=== PATIENT | male | born 1970 | race Caucasian/White ===

== ENCOUNTER → 2019-06-23 06:15 | Outpatient (CLI) | payer BC, SELFPAY ==
--- NOTE | 2019-06-23 06:20 | CA_ITS ---
PROCEDURE: 2-D M-mode and color Doppler study INDICATIONS FOR THE TEST: Chest pain+ COPD Heart Murmur Tobacco Smoking+ Palpitations Fatigue Syncope Edema Hypertension+Diabetes Mellitus Rheumatic Fever SOB+[place] Obesity Hyperlipidemia Family History HD Additional History CAD, GERD PATIENT INFORMATION HEIGHT: 72 WEIGHT:207 GENDER: Male B/P:133/96 2-D/M-MODE INTERPRETATION: 2-D MEASUREMENTS OBSERVED VALUES IN CMS Right Ventricular Dimension (RVDd) 1.9 Interventricular Septum (Thickness)(IVsd) 1.3 Left Ventricular Internal Dimensions(LVIDd) 5.0 Left Ventricular Posterior Wall (Thickness)(LVPWd) 1.4 Aortic Root 3.8 Aortic Cusp Separation 2.2 Left Atrial Dimensions (LAD) 4.2 2D 1. Left atrium is mildly enlarged, left ventricle is normal size, mild concentric left ventricular hypertrophy, visually estimated ejection fraction of 55% with no regional wall motion abnormality. 2. The right atrium and right ventricle are normal size and contractility. 3. The aortic valve is minimally thickened. 4. The mitral and tricuspid valvular grossly normal. 5. The pulmonic valve is poorly visualized. 6. No significant pericardial effusion noted DOPPLER INTERROGATION: Doppler interrogation of the aortic, mitral and tricuspid valvular presence of mild mitral and tricuspid regurgitation, tricuspid regurgitation jet velocity is inadequate for calculation of the right ventricular systolic pressure, diastolic parameters are inconclusive. CONCLUSION: 1. Mildly enlarged left atrium, normal left ventricular size, mild concentric left ventricular hypertrophy, visually estimated ejection fraction 55% with no regional wall motion abnormality, diastolic parameters are inconclusive. 2. Mild mitral and tricuspid regurgitation. 3. No significant pericardial effusion noted.
--- NOTE | 2019-06-23 06:22 | NM_ITS ---
NM addie perf SPECT rest str History:C.P., SOB Procedure: Patient received a 0.4 mg of intravenous Lexiscan, resting heart rate 59 bpm, resting blood pressure 148/98, with Lexiscan maximum heart rate achieve was 88 bpm which is less than 85 % of the maximum predicted heart rate and blood pressure was 136/95. WIth Lexiscan patient denied any complaint of chest pain. Electrocardiogram: Resting electrocardiogram showed sinus rhythm, with Lexiscan there is less than 1.5mm ST segment depression noted from the baseline EKG. The EKG portion of the Lexiscan Myoview is nondiagnostic. Cardias Stress and Resting SPECT images: Cardias Stress and Resting SPECT images were obtained using technetium 99m Myoview 32.5 mCi stress and 10.53 mCi at rest. Gated SPECT further analysis of segmental wall motion and calculation of ejection fraction also done. Cardiac stress and resting SPECT show uniform myocardial activity without segmental perfusion abnormality, the computer derived ejection fraction is 61% with no regional wall motion abnormality, right ventricle is normal size and contractility. Conclusion: 1. The EKG portion of the Lexiscan Myoview is nondiagnostic. 2. No scintigraphic evidence of reversible ischemia seen, computer derived ejection fraction is 61 % with no regional wall motion abnormality, right ventricle is normal size and contractility. 3. Normal Lexiscan Myoview study.
--- NOTE | 2019-06-23 06:22 | XR_ITS ---
XR chest 2V HISTORY: Shortness of breath, chest pain, smoker ITS.REASON: s ORDERING PHYSICIAN: Elena Prince APRN PATIENT AGE: 49 years COMPARISON: None FINDINGS: The cardiomediastinal silhouette and pulmonary vascularity are within normal limits. Slight increased density is present in the right suprahilar region. Is nonspecific and could be due to summation artifact from overlapping vessel and bronchus. Suggest follow-up to confirm stability. The remaining lungs are clear. Mild degenerative change thoracic spine. IMPRESSION: No acute finding. Asymmetric density right hilar region. Follow-up radiograph recommended to confirm stability in this patient with smoking history
--- NOTE | 2019-06-23 07:15 | HMH.ITSHM ---
Current Home Medications as stated by this patient Antony Narayanan or client representative. []CARVEDILOL OMEPRAZOLE LISINOPRIL
== END ==
PROVIDERS: Visit Provider Urology
DX: R07.89 Other chest pain (principal); R06.02 Shortness of breath; I10 Essential (primary) hypertension; F17.200 Nicotine dependence, unspecified, uncomplicated
CPT/HCPCS: 71046; 78452; 93017; 93306; A9502; J2785

== ENCOUNTER 2022-05-21 11:34 | Emergency (ER) | payer MEDICAID, SELFPAY ==
[2022-05-21] VITALS (12 sets, daily range): BP systolic 132–150; BP diastolic 90–114; PULSE 60–80; RESP 15–20; TEMP 36.8; O2SAT 96–99; BMI 27.8
--- NOTE | 2022-05-21 11:34 | ECG_ITS ---
APPROVED REPORT Exam: Resting ECG HR:75 bpm ECG Measurements Heart Rate 75 AXES ID 159 P 13 QRSd 80 QRS 8 QT 347 T 43 QTc 376 Conclusion SINUS RHYTHM POSSIBLE RIGHT VENTRICULAR CONDUCTION DELAY [RSR (QR) IN V1/V2] BORDERLINE ECG UNCONFIRMED REPORT Electronically signed by : Nicolas Davila MD 05/23/2022 17:48:04
--- NOTE | 2022-05-21 11:41 | HMH.EDCP ---
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 Return to the emergency department immediately if you worsen in any way. You may take [id number] Tylenol or ibuprofen for your pain. Referrals: Provider,MD Emmett [Primary Care Provider] - Abiel Cm MD [Staff Physician] - - Critical Care Critical Care Time: No Attestation: On , the high probability of a clinically significant, sudden or life threatening deterioration of the following system(s) required my full and direct attention, intervention and personal management. The time I documented below is in addition to time spent performing reported procedures but includes the following listed in this critical care notation. Medical Decision Making - Sid Inquiry Pt receiving controlled substance: No Vital Signs: 05/21/22 11:34 05/21/22 12:00 05/21/22 12:30 Temperature 98.2 F Temperature Source Oral Pulse Rate 80 70 Pulse Rate [Right Radial] 79 Respiratory Rate 16 20 16 Blood Pressure 134/100 H 134/93 H Blood Pressure [Right Arm] 148/113 H Blood Pressure Mean 111 107 Blood Pressure Mean [Right Arm] 124 Blood Pressure Source [Right Arm] Automatic Cuff Blood Pressure Position [Right Arm] Sitting 02 Sat by Pulse Oximetry 99 98 97 Oxygen Delivery Method Room Air 05/21/22 13:00 05/21/22 13:30 05/21/22 14:00 Temperature Temperature Source Pulse Rate 68 69 67 Pulse Rate [Right Radial] Respiratory Rate 17 15 16 Blood Pressure 135/100 H 138/98 H 141/100 H Blood Pressure [Right Arm] Blood Pressure Mean 109 107 111 Blood Pressure Mean [Right Arm] Blood Pressure Source [Right Arm] Blood Pressure Position [Right Arm] 02 Sat by Pulse Oximetry 98 96 98 Oxygen Delivery Method 05/21/22 14:30 Temperature Temperature Source Pulse Rate 70 Pulse Rate [Right Radial] Respiratory Rate 15 Blood Pressure 135/90 Blood Pressure [Right Arm] Blood Pressure Mean 105 Blood Pressure Mean [Right Arm] Blood Pressure Source [Right Arm] Blood Pressure Position [Right Arm] 02 Sat by Pulse Oximetry 97 Oxygen Delivery Method - Lab Data Lab results reviewed: Yes: I reviewed the patient's lab results. Lab Results 05/21/22 11:41: WBC 5.4, RBC 5.05, Hgb 15.8, Hct 44.7, MCV 88.6, MCH 31.2, MCHC 35.2, RDW 13.7, Plt Count 278, MPV 7.1 L, Neut % (Auto) 68.5, Lymph % (Auto) 22.6, [place] % (Auto) 6.6, Eos % (Auto) 2.0, Baso % (Auto) 0.4, Neut # (Auto) 3.7, Lymph # (Auto) 1.2, [place] # (Auto) 0.4, Eos # (Auto) 0.1, Baso # (Auto) 0.0 05/21/22 11:41: PT 10.2, INR 0.90, APTT 26.5 05/21/22 11:41: Sodium 135 L, Potassium 3.5, Chloride 99, Carbon Dioxide 25, Anion Gap 14.5, BUN 14, Creatinine 0.80, Estimated GFR 102, Est GFR ( Amer) 124, Glucose 139 H, Calcium 9.3, Total Bilirubin 0.6, AST 40, ALT 47, Alkaline Phosphatase 104, Troponin I < 0.01, Total Protein 7.3, Albumin 4.6, Globulin 2.7, Albumin/Globulin Ratio 1.7 05/21/22 14:49: Troponin I < 0.01 Result diagrams: 05/21/22 11:41 05/21/22 11:41 Orders (Tests/Meds): ED MEDICATIONS Discontinued Medications Generic Name Dose Route Start Last Admin Trade Name Freq PRN Reason Stop Dose Admin Aspirin 324 mg 05/21/22 11:42 05/21/22 12:44 Aspirin 81mg Chewable Tablet PO 05/21/22 11:43 324 mg ONCE ONE Administration - ECG Data Tracing #1 I reviewed this ECG and interpreted as documented below: The patient is EKG was performed at 1135. It shows a normal sinus rhythm with a ventricular rate of 75 bpm. There is no evidence of acute ischemia. The intervals are normal. Normal Sinus Rhythm: Yes - TO Score for Non-Stemi Age of Patient: 50-59 years old Heart Rate: 70-89 bpm Systolic Blood Pressure: 140-159 mmHg Serum Creatinine: 0.80-1.19 mg/dl CHF K
--- NOTE | 2022-05-21 11:42 | XR_ITS ---
FINAL REPORT CLINICAL HISTORY: cp, pt states that he has been experiencing chest pain and a shooting pain down his left arm since yesterday. COMPARISON: 04/23/2019 FINDINGS: The heart size is normal. The mediastinum is normal. There is no focal infiltrate or edema. There are no pleural effusions. There is no pneumothorax. There is no osseous abnormality. IMPRESSION: No acute cardiopulmonary process Reviewed, Interpreted and Dictated by Salvador Little III, MD Transcribed by Alexey Whelan Authenticated and [facility]
[2022-05-21 11:57] LABS: Basophils % 0.4 % (0.1-2.0); Eosinophils # 0.1 K/mm3 (0.0-0.4); Hematocrit 44.7 % (42.0-52.0); Hemoglobin 15.8 g/dL (14.1-18.0); Lymphocytes # 1.2 K/mm3 (0.7-4.5); Lymphocytes % 22.6 % (10-50); Mean Corpuscular HGB Conc 35.2 g/dL (31.8-35.4); Mean Corpuscular Hemoglobin 31.2 pg (27.0-31.2); Mean Corpuscular Volume 88.6 fl (80-94); Mean Platelet Volume 7.1 fl (7.4-10.4); Monocytes # 0.4 K/mm3 (0.1-1.0); Monocytes % 6.6 % (1.7-9.3); Neutrophils # 3.7 K/mm3 (1.8-7.8); Neutrophils % 68.5 % (37.0-80.0); Platelet Count 278 K/mm3 (142-424); Red Blood Count 5.05 M/mm3 (4.60-6.20); Red Cell Distribution Width 13.7 % (11.5-17.5); White Blood Count 5.4 K/mm3 (4.8-10.8)
[2022-05-21 11:58] LABS: Chloride 99 mmol/L (98-107); Sodium 135 mmol/L (136-145)
[2022-05-21 11:59] LABS: Potassium 3.5 mmoL/L (3.5-5.1)
[2022-05-21 12:01] LABS: Alanine Aminotransferase 47 U/L (12-78); Albumin Level 4.6 g/dl (3.5-5.0); Albumin/Globulin Ratio 1.7 (1.1-1.8); Alkaline Phosphatase 104 U/L (38-126); Anion Gap 14.5 mEq/L (5-15); Aspartate Amino Transferase 40 U/L (17-59); Bilirubin,Total 0.6 mg/dl (0.2-1.3); Blood Urea Nitrogen 14 mg/dl (9-20); Carbon Dioxide 25 mmol/L (22.0-30.0); Estimated Glomerular Filt Rate 102 ml/min (>60); GFR (African American) 124 ML/MIN (>60); Globulin 2.7 g/dL (1.3-3.2); Total Protein,Serum 7.3 g/dl (6.3-8.2)
[2022-05-21 12:02] LABS: Calcium 9.3 mg/dl (8.4-10.2); Glucose 139 mg/dl (74-100)
[2022-05-21 12:04] LABS: Activated Partial Thrombo Time 26.5 seconds (22.8-30.6); Prothrombin Time 10.2 seconds (10.1-12.5)
[2022-05-21 12:25] LABS: Troponin I < 0.01 ng/ml (0.00-0.034)
--- NOTE | 2022-05-21 12:54 | PC.NURSE ---
Rounded on pt at this time. Updated on POC. No other needs.
--- NOTE | 2022-05-21 13:27 | PC.NURSE ---
Updated pt on POC and that MD would be reviewing chart and be in to speak with him. Pt provided with drink at this time. No other needs
[2022-05-21 16:29] LABS: Troponin I < 0.01 ng/ml (0.00-0.034)
--- NOTE | 2022-05-21 16:34 | PC.NURSE ---
UPDATING PT AT THIS TIME
== END 2022-05-21 16:45 | disposition home or self-care (01) ==
PROVIDERS: Emergency Provider Emergency Medicine
DX: R07.89 Other chest pain (principal); I25.10 Atherosclerotic heart disease of native coronary artery without angina pectoris; K21.9 Gastro-esophageal reflux disease without esophagitis; I10 Essential (primary) hypertension; Z72.0 Tobacco use
CPT/HCPCS: 36415; 71045; 80053; 84484; 85025; 85610; 85730; 93005; 99283

== ENCOUNTER → 2022-05-28 09:43 | Outpatient (CLI) | payer MEDICAID, SELFPAY ==
--- NOTE | 2022-05-28 09:50 | CT_ITS ---
FINAL REPORT TECHNIQUE: Thin section axial CT images were obtained from the lung apices to the upper abdomen. IV contrast was administered. MIP 3-D reformats were obtained. This study was performed with techniques to keep radiation doses as low as reasonably achievable (ALARA). Individualized dose reduction techniques using automated exposure control or adjustment of mA and/or kV according to the patient's size were employed. CLINICAL HISTORY: cp..70ml of iso 370 saline flush FINDINGS: The mediastinal vasculature is well opacified. The heart size is normal. There is no adenopathy. There is no filling defect to suggest PE. There is no aortic dissection. There is no pericardial effusion. There is chronic scarring in the lung bases. There are [id number] changes intra lobular emphysema. There is no suspicious infiltrate or nodule. No pleural effusion. Limited images of the upper abdomen demonstrate a moderate hiatal hernia. IMPRESSION: No pulmonary embolism or aortic dissection. Reviewed, Interpreted and Dictated by Duran Larios MD Transcribed by Alexey Whelan Authenticated and [facility]
== END ==
PROVIDERS: PCP Family Medicine; Visit Provider Nurse Practitioner Family
DX: R06.02 Shortness of breath (principal); R07.9 Chest pain, unspecified; I11.9 Hypertensive heart disease without heart failure; E78.5 Hyperlipidemia, unspecified; K21.9 Gastro-esophageal reflux disease without esophagitis; F17.200 Nicotine dependence, unspecified, uncomplicated
CPT/HCPCS: 71275; Q9966; Q9967

== ENCOUNTER → 2022-06-03 06:38 | Outpatient (CLI) | payer MEDICAID, SELFPAY ==
--- NOTE | 2022-06-03 06:39 | CA_ITS ---
APPROVED REPORT EXAM: Comprehensive 2D, Doppler, and color-flow Echocardiogram Investment Counselor: Julieta Reyes, SELMA, RVS Ht: 6 ft 0 in Wt: 207lbs BSA: 2.16 BP: 135/99 mmHg Indications: SOB, SMOKER, CP,HTN, HLD,CAD,GERD Echo Enhancing Agent Comments: Poor acoustics due to lung impedence 2D Dimensions IVSd 1.05 cm LVEF (Visual) 77.10 % PWd 1.00 cm LA Volume 53.10 mL LVDd 4.91 cm LA Volume Index 24.60 mL/m2 (M/F) 16-34 LVDs 2.66 cm Aortic Root 3.01 cm Left Atrium 3.28 cm LVOT 2.00 cm (M/F) 1.5-2.5 M-Mode Dimensions LA Diam 4.47 cm (1.9-4.0) Ao Diam 3.45 cm (2.0-3.7) EPSs 0.34 cm TAPSE 1.28 (<1.7) LV Diastology E Decel Time 307.00 (160-240 msec) E/A Ratio 1.32 MED E' 7.10 (< 7 cm/sec) MED A' 8.60 cm/s E'/MED E' Ratio 9.75 (>14) LAT E' 7.90 (<10 cm/sec) LAT A' 9.60 cm/s E/LAT E' Ratio 8.76 (>14) Aortic Valve LVOT Max 99.00 (70-110 cm/s) LVOT VTI 21.78 cm AoV Peak Prateek. 116.00 (50-130 cm/s) AO Peak GR. 5.40 mmHg AO Mean GR. 2.70 (<5 mmHg) AO VTI 22.07 (18-25 cm) ROCCO (VTI) 3.10 (2.5-4.5 cm2) Mitral Valve MV A Velocity 52.00 (40-130 cm/s) E/A Ratio 1.32 MV Decel. Time 307.00 (160-240 ms) Pulmonary Valve PV Peak Velocity 65.00 (50-150 cm/s) Tricuspid Valve TR P. Velocity 250.00 cm/s RAP Estimate 10.00 mmHg RVSP 35.00 mmHg Left Ventricle Left atrium is mildly enlarged, left ventricle normal size mild concentric left ventricular hypertrophy, estimated ejection fraction 50% with no regional wall motion abnormality, diastolic parameters are inconclusive. Right Ventricle Right atrium and right ventricle are mildly enlarged with normal contractility. Aortic Valve Aortic valve is minimally thickened and fibrosed, there is no aortic stenosis or aortic insufficiency. Mitral Valve Mitral valve grossly normal, there is mild mitral regurgitation. Tricuspid Valve Tricuspid grossly normal, there is mild tricuspid regurgitation, tricuspid regurgitation jet velocity is inadequate for calculation of the right ventricular systolic pressure. Pulmonic Valve Pulmonic valve is poorly visualized. Great Vessels Aortic root is normal size. Inferior vena cava is poorly visualized. Pericardium No significant pericardial effusion noted. Conclusion 1. Biatrial enlargement, normal left ventricular size mild concentric left ventricular hypertrophy, estimated ejection fraction 50% with no regional wall motion abnormality, diastolic parameters are inconclusive. 2. Mildly enlarged right ventricle with normal contractility. 3. Mild mitral and tricuspid regurgitation. 4. No significant pericardial effusion noted. 5. Inferior vena cava is poorly visualized. Electronically signed by : Casper Mantilla MD 06/03/2022 16:07:44
--- NOTE | 2022-06-03 06:46 | NM_ITS ---
APPROVED REPORT Exam: Nuclear Stress Test Indication: Chest pain, SOB, HTN, CAD, Hx of CA, Tobacco use, Family history Patient Location: Outpatient Stress Tech: Margot Prasad PR Tech:Marlene Johansen, ARRT, RT (R)(N) Ht: 6 ft 0 in Wt: 205 lbs HR: 69 bpm BP: 116/86 mmHg BSA: 2.15 m2 TID: 1.10 History: Chest pain, SOB, HTN, CAD, Hx of CA, Tobacco use, Family history Procedure: Patient received a 0.4 mg of intravenous Lexiscan, resting heart rate 69 bpm, resting blood pressure 116/86 mmHg, with Lexiscan maximum heart rate achived was 103 bpm which is Less than 85 % of the maximum predicted heart rate and blood pressure was 126/82 mmHg. With Lexiscan, patient denied any complaint of chest pain. Electrocardiogram Resting electrocardiogram shows sinus rhythm, with Lexiscan there is less than 1.[address] segment depression noted from the baseline EKG. The EKG portion of the Lexiscan is nondiagnostic. Cardiac Stress and Resting SPECT Images: Cardiac Stress and Resting SPECT images were obtained using technetium 99m Myoview 32.4 mCi stress and 10.29 mCi at rest. Gated SPECT for analysis of segmental wall motion and calculation of the ejection fraction also done. Cardiac stress and rest SPECT images show uniform myocardial activity without segmental perfusion abnormality, computer derived ejection fraction is 55% with no regional wall motion abnormality, right ventricle is normal size and contractility. Conclusion: 1. The EKG portion of the Lexiscan is nondiagnostic. 2. No scintigraphic evidence of reversible ischemia seen, compared right ejection fraction is 55% with no regional wall motion abnormality, right ventricle is normal size and contractility. 3. Normal Lexiscan Myoview study. Electronically signed by : Casper Mantilla MD 06/03/2022 18:26:36
--- NOTE | 2022-06-03 08:13 | HMH.ITSHM ---
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 []TIZANIDINE OMEPRAZOLE NAPROXEN LISINOPRIL HYDORCODONE GABAPENTIN CARVEDILOL ASA AMLODIPINE
--- NOTE | 2022-06-03 08:50 | CA_ITS ---
APPROVED REPORT Exam: Pharmacologic Technologist: Margot Schwarz, Ht: 6 ft 0 in Wt: 207 lbs BSA: 2.16 m2 HR: 64 bpm BP: 116/86 mmHg Medical History Medications: Amlodipine,,,,, Omeprazole,,,,, Aspirin,,,,, Gabapentin,,,,, Naproxen,,,,, Coreg,,,,, Tizanidine,,,,, Hydrocodone-Acetaminohen,,,,, Lisinopri/HCTZ,,,,, Stress Test Details Test: LEXISCAN HR Resting HR: 69 bpm Max Heart Rate (APMHR): 170.782179 bpm Max HR Achieved: 103 bpm Target HR (85% APMHR): 144.436362 bpm % of APMHR: 60.59 Recovery HR: 83 bpm BP Resting BP: 116/86 mmHg Max BP: 126/82 mmHg Recovery BP: 110.0/86.0 mmHg ECG Clinical Exercise duration: 04:10 min Highest Stage Achieved: Exercise capacity: 1.0 METs Stress ECG Conclusion Symptoms: SOA Arrhythmias/Ectopy: occasional PAC, lightheaded, chest pain ST-T Changes: <1.5mm st changes Test Summary REST . . . . . . . Resting REST 04:34 . . 69 . 116/ 86 . . Stage 1 01:00 . . 98 . . . . Stage 2 01:00 . . 94 . 118/ 80 . . Stage 3 01:00 . . 86 . 126/ 82 . . Stage 4 01:00 . . 90 . 117/ 85 . . Stage 4 01:10 . . 85 . 117/ 85 . Stop exercise at 04:10 RECOVERY 01:00 . . 78 . . . . RECOVERY 02:00 . . 71 . 110/ 86 . . Electronically signed by : Casper Mantilla MD 06/03/2022 18:24:08
== END ==
PROVIDERS: PCP Family Medicine; Visit Provider Nurse Practitioner Family
DX: R06.02 Shortness of breath (principal); R07.9 Chest pain, unspecified; I11.9 Hypertensive heart disease without heart failure; E78.5 Hyperlipidemia, unspecified; K21.9 Gastro-esophageal reflux disease without esophagitis; F17.200 Nicotine dependence, unspecified, uncomplicated
CPT/HCPCS: 78452; 93017; 93306; A9502; J2785

== ENCOUNTER → 2022-06-19 07:28 | Outpatient (CLI) | payer MEDICAID, SELFPAY ==
--- NOTE | 2022-06-19 07:29 | CA_ITS ---
FINAL REPORT TECHNIQUE: Grayscale, color Doppler and duplex Doppler ultrasound of the kidneys, aorta and renal arteries was performed. Multiple velocities were measured. CLINICAL HISTORY: HTN FINDINGS: Aorta velocity: 86 cm/sec Right kidney: 11.3 cm. No evidence of hydronephrosis or mass. Right intrarenal RI: 0.57 Right renal artery velocity: 208 cm/sec. Right RAR (Renal artery-Aortic Ratio): 2.42 Left Kidney: 12.8 cm. 1.3 cm cyst. Left intrarenal RI: 0.63 Left renal artery velocity: 168 cm/sec. Left RAR (Renal Artery-Aortic Ratio): 1.95 IMPRESSION: Less than 60% right renal artery stenosis. No significant left renal artery stenosis. CT angiogram or postcontrast MR angiogram would be more sensitive for evaluation of possible renal artery stenosis. Reviewed, Interpreted and Dictated by Salvador Little III, MD Transcribed by Alexey Whelan Authenticated and [facility]
== END ==
PROVIDERS: PCP Family Medicine; Visit Provider Physician Assistant
DX: I11.9 Hypertensive heart disease without heart failure (principal); E78.2 Mixed hyperlipidemia
CPT/HCPCS: 93976

== ENCOUNTER → 2023-04-28 09:37 | Outpatient (CLI) | payer MEDICARE, MEDICAID, SELFPAY ==
--- NOTE | 2023-04-28 09:38 | CT_ITS ---
FINAL REPORT CLINICAL HISTORY: lung cancer screening CURRENT SMOKER 1PACK PER WEEK RIGHT NOW, WHEN SMOKING HEAVY 1PPD X 30 YEARS COMPARISON: None FINDINGS: CT CHEST LOW DOSE SCREENING HISTORY: Screening exam for lung cancer. Current smoker, 30 pack year smoking history DOSE: CTDIvol: 2.9 mGy, DLP: 98.47 mGy*cm COMPARISON: None . TECHNIQUE: Axial CT without IV contrast administration using low dose protocol FINDINGS: No acute lung disease is present . No pulmonary lesions are seen suspicious for neoplasm. Mild changes of emphysema are present. A small hiatal hernia is noted. Mild scarring is present bilaterally. No pleural or pericardial effusion is seen . No adenopathy or mass lesion is present . IMPRESSION: Mild changes of emphysema and bilateral scarring. LUNG RADS CATEGORY 1 RECOMMENDATION: 12 month LDCT follow up Reviewed, Interpreted and Dictated by Salvador Little III, MD Transcribed by Shira Mitchell Authenticated and [facility]
--- NOTE | 2023-04-28 09:40 | CT_ITS ---
FINAL REPORT CLINICAL HISTORY: New onset hoarsess in > 30 PPD COMPARISON: None FINDINGS: CT of the soft tissues of the neck with contrast: The nasopharynx, oropharynx, and hypopharynx are unremarkable in appearance. The thyroid gland is normal in appearance. No significant mass or adenopathy is noted. There is slight asymmetry of the true vocal cord of uncertain significance. An underlying mass can not be excluded. IMPRESSION: Slight asymmetry of the true vocal cord of uncertain significance. Reviewed, Interpreted and Dictated by Salvador Little III, MD Transcribed by Shira Mitchell Authenticated and . [facility]
[2023-04-28 10:00] LABS: Blood Urea Nitrogen 11 mg/dl (9-20); Estimated Glomerular Filt Rate 119 ml/min (>60); GFR (African American) 144 ML/MIN (>60)
[2023-04-28 11:40] VITALS: PULSE 67; PULSE 70
== END ==
PROVIDERS: PCP Family Medicine; Visit Provider Internal Medicine Pulmonary Disease
DX: Z87.891 Personal history of nicotine dependence; Z12.2 Encounter for screening for malignant neoplasm of respiratory organs; J43.9 Emphysema, unspecified; R49.0 Dysphonia
CPT/HCPCS: 36415; 70492; 71271; 82565; 84520; 94060; 94618; 94640; 94727; 94729; Q9967

== ENCOUNTER 2024-05-13 10:50 | Outpatient (CLI) | payer MEDICARE, MEDICAID, SELFPAY ==
--- NOTE | 2024-05-13 10:57 | CT_ITS ---
APPROVED REPORT Property Caretaker: CLINICAL INDICATION Chest Pain TECHNIQUE Image Acquisition: A 128 slice MDCT scanner ([employer] View) was used for data acquisition. A noncontrast coronary calcium scan was performed. A CT attenuation threshold of 130 Hounsfield units (HU) was used for the detection of calcium in contiguous voxels of 1 sq mm in area to be counted as individual lesions. Bolus tracking in the ascending aorta with a threshold of 180 HU was performed. Immediately afterwards, ECG synchronized cardiac CT was then performed from the cardiac base to apex using retrospective gating with ECG tube current modulation. A total of 85 mL of Isovue 370 mg/mL contrast medium was administered at 5 mL/sec followed by a saline flush using a biphasic injection protocol. A tube voltage of 120 KVp was used. The patient received the following medications prior to the cardiac CT. 50 mg of oral metoprolol 15 mg of oral ivabradine 0.8 mg of sublingual nitroglycerin The average heart rate at the time of acquisition was 67 bpm and regular. Image Reconstruction Transaxial images were reconstructed at 0.67 mm slide thickness. Data was reviewed interactively on an advanced workstation capable of 2 and 3-dimensional displays in all conventional reconstruction formats, including multiplanar reformations, maximum intensity projections, curved multiplanar reformations, and volume rendered reconstructions. When applicable, selected routine images describing the relevant coronary anatomy and pathology were saved and sent to PACS. Complications None Technical Quality Overall image quality was good. Coronary artery opacification was adequate. Total DLP (Dose-Length Product) is 2016.2 mGy-cm. The reported value represents the total of one or more individual components during the CT acquisition of this date and at this time, and as such, the same value may appear in more than one CT report depending on the interpreting/reporting physicians. COMPARISON None FINDINGS CT Coronary Calcium Scoring LMA (Left Main Artery) = 0 LAD (Left Anterior Descending) = 4 LCX (Left Coronary Circumflex) = 0 RCA (Right Coronary Artery) = 0 Total Calcium Score = 4 using the AJ-130 method. The observed calcium score of 4 is at 57th percentile for subjects of the same age, sex, and race/ethnicity. The interpretation of the calcium heart score is based on the following continuum*: 0 = no calcified plaque detected (risk of coronary artery disease is very low ??? less than 5%) 1-10 = calcium detected in extremely minimal levels (risk of coronary diseases is still low ??? less than 10%) 11-100 = mild levels of plaque detected with certainty (mild or minimal narrowing of heart arteries is likely) 101-400 = definite,at least moderate levels of plaque detected (relatively high risk of a heart attack within 3-5 years) >401-999 = extensive levels of plaque detected (high risk of heart attack, high levels of vascular disease are present, high likelihood of at least one significant coronary narrowing) *The calcium heart score quantifies the burden of coronary calcification/plaque in the coronary arteries. The calcium heart score is not able to evaluate the presence or burden of non-calcified (i.e. soft) plaque. There is no identifiable calcification in the aortic valve, mitral annulus or mitral valve, pericardium, or myocardium. Coronary CT Angiography The coronary arterial system is right dominant. Quantitative Stenosis Grading: Left Main (LM): The left main originates normally from the left sinus of Valsalva. The LM bifurcates into the left anterior descending artery and left circumflex artery. The LM is patent with no evidence of atherosclerosis. Left Anterior Descending (LAD) and Diagonal Branches: The LAD gives off 3 diagonal branch(es). There is mixed calcified/noncalcified plaque in the ostial and mid LAD with up to 50-70% luminal stenosis in the oatial LAD and the mid-LAD segment. There is no evidence of LAD-myocardial bridge. Left Circumflex (LCX) and Obtuse Marginals (OM): The LCX gives off 1 Obtuse Marginal (OM) branch(es). The LCX and its branches are patent with no evidence of atherosclerosis. Right Coronary Artery (RCA): The RCA originates normally from the right sinus of Valsalva. The RCA gives off a posterior descending artery (PDA) and posterolateral (PL) branches. The RCA and its branches are patent with no evidence of atherosclerosis. Non-Coronary Cardiac Findings: Analysis of the left ventricular (LV) structure and function was performed after 3-D reconstruction of the LV from axial images, with user-corrected automatic contouring for assessment of LV volumes and user-defined reconstruction from oblique planes for measurement of 3-D cardiac structure and function. -The left ventricle systolic function is normal. -There is no left atrial appendage filling defect. Two right pulmonary veins and two left pulmonary veins drain normally into the left atrium. -No pericardial thickening or calcification. -Central and branch pulmonary arteries in the [id number] are unremarkable. -Thoracic aorta within the visualized thoracic aortic-branches in the [id number] is unremarkable. Extracardiac Structures No significant extra-cardiac findings. Note, however, that this study is focused on the cardiac findings. IMPRESSION -Presence of coronary calcification with an Agatston score = 4 using the AJ-130 method. -The observed calcium score of 4 is at 57th percentile for subjects of the same age, sex, and race/ethnicity. -Moderate mixed calcified/noncalcified plaque in the ostial and mid LAD segments with possible significant flow-limiting atherosclerosis. -CAD-RADS 3. Management recommendations per ACC/AHA guidelines*, as clinically appropriate. *Recommendations: CAD RADS 0: Reassurance. Consider non-atherosclerotic causes of chest pain. CAD RADS 1: Consider non-atherosclerotic causes of chest pain. Consider preventive therapy and risk factor modification. CAD RADS 2: Consider non-atherosclerotic causes of chest pain. Consider preventive therapy and risk factor modification, particularly for patients with nonobstructive plaque in multiple segments. CAD RADS 3: Consider further functional testing. Consider symptom-guided anti-ischemic and preventive pharmacotherapy as well as risk factor modification per published guideline statements. CAD RADS 4A: Consider further functional testing or invasive coronary angiography with revascularization per published guideline statements. Consider symptom-guided anti-ischemic and preventive pharmacotherapy as well as risk factor modification per published guideline statements. CAD RADS 4B: Invasive coronary angiography recommended with revascularization per published guideline statements. Consider symptom-guided anti-ischemic and preventive pharmacotherapy as well as risk factor modification per published guideline statements. CAD RADS 5: Consider invasive angiography and/or viability assessment with revascularization per published guideline statements. Consider symptom-guided anti-ischemic and preventive pharmacotherapy as well as risk factor modification per published guideline statements. CRITICAL RESULT None COMMUNICATION Per this written report The coronary and cardiac findings of this CCTA were reviewed, reported, and signed by Leroy Jacobson MD (Second Mate) Conclusion Electronically signed by : Myriam Jacobson MD 05/18/2024 12:12:48
[2024-05-13 11:02] VITALS: BMI 29.5
[2024-05-13 11:19] VITALS: BP 126/70; PULSE 77; RESP 18; TEMP 36.4; O2SAT 97
--- NOTE | 2024-05-13 11:22 | CA_ITS ---
APPROVED REPORT EXAM: Comprehensive 2D, Doppler, and color-flow Echocardiogram [employer] Pit Crane Operator: Annette Hutchinson RVT Ht: 6 ft 0 in Wt: 218lbs BSA: 2.21 BP: 109/85 mmHg Indications: CP,CAD,HTN,HLD,SMOKER 2D Dimensions LA Volume 46.10 mL LA Volume Index 20.86 mL/m2 (M/F) 16-34 M-Mode Dimensions RVDd 3.61 cm (0.9-2.6) LA Diam 4.08 cm (1.9-4.0) LVDd 5.74 cm (3.5-5.7) LVDs 4.09 cm (3.5-5.7) IVSd 0.68 cm (0.6-1.1) PWd 0.64 cm (0.6-1.1) EF (Teich) 54.60% FS 28.70% EDV (Teich) 162.60 mL TAPSE 1.66 (<1.7) ESV (Teich) 73.80 mL LV Diastology E Decel Time 150 (160-240 msec) E/A Ratio 1.1 Aortic Valve ROCCO Index 1.57 cm2/m2 AoV Peak Prateek. 118.0 (50-130 cm/s) AO Peak GR. 5.60 mmHg AO Mean GR. 3.10 (<5 mmHg) AO VTI 27.6 (18-25 cm) ROCCO (VTI) 3.55 (2.5-4.5 cm2) Mitral Valve MV E Max Prateek. 81.0 (40-130 cm/s) MV A Velocity 74.0 (40-130 cm/s) E/A Ratio 1.09 MV PHT 44.0 ms Pulmonary Valve PV Peak Velocity 77.0 (50-150 cm/s) Tricuspid Valve TR P. Velocity 233.00 cm/s RAP Estimate 10.00 mmHg RVSP 31.80 mmHg Left Ventricle The left ventricle is normal size. The left ventricular systolic function is normal. The left ventricular ejection fraction is within the normal range. There is normal left ventricular wall thickness. There is normal LV segmental wall motion. The left ventricular diastolic function is normal. LVEF is 55%. Right Ventricle Right ventricle is mildly dilated. Right ventricle is mildly hypokinetic. Atria The left atrium size is normal. The right atrium size is normal. There is no Doppler evidence of interatrial shunt. Aortic Valve The aortic valve opens well. There is no aortic valvular stenosis. No aortic regurgitation is present. Mitral Valve The mitral valve is normal in structure. No evidence of mitral valve stenosis. Mild mitral regurgitation. Tricuspid Valve The tricuspid valve leaflets are thin and pliable. Mild tricuspid regurgitation. RVSP is 20-25 mmHg. Pulmonic Valve The pulmonary valve leaflets are not well-visualized. Great Vessels The aortic root is normal in size. The ascending aorta is normal in size. IVC is normal in size and collapses >50% with inspiration. Pericardium There is no pericardial effusion. Other Information Study Quality: Technically Difficult Conclusion Technically difficult study due to poor acoustic windows. Normal LV systolic function. Mild RV dilation with mild reduction in RV function. Mild TR, mild MR. The PV is not well-visualized. Electronically signed by : Myriam Jacobson MD 05/16/2024 21:59:53
[2024-05-13] MEDS: METOPROLOL TARTRATE 50MG TABLET PO (11:25)
[2024-05-13] MEDS: IVABRADINE HCL 7.5MG TABLET PO (11:25)
[2024-05-13 11:34] LABS: Chloride 98 mmol/L (98-107)
[2024-05-13 11:35] LABS: Sodium 132 mmol/L (136-145)
[2024-05-13 11:37] LABS: Blood Urea Nitrogen 13 mg/dl (9-20); Creatinine Clearance Estimated 151 mL/min (50-200); Estimated Glomerular Filt Rate 102 ml/min (>60); GFR (African American) 123 ML/MIN (>60)
[2024-05-13 11:38] LABS: Calcium 8.9 mg/dl (8.4-10.2); Carbon Dioxide 28 mmol/L (22.0-30.0); Glucose 105 mg/dl (74-100)
[2024-05-13 12:04] VITALS: BP 126/81; PULSE 69; RESP 16; O2SAT 95
[2024-05-13] MEDS: NITROGLYCERIN 0.4MG SL TABLET SL (12:04)
[2024-05-13 12:07] VITALS: BP 105/59; PULSE 76; RESP 16; O2SAT 96
[2024-05-13 12:10] VITALS: BP 107/42
[2024-05-13 12:13] VITALS: BP 94/54
[2024-05-13 12:29] VITALS: BP 93/49; PULSE 61; RESP 18; O2SAT 97
[2024-05-13] MEDS: IOPAMIDOL-370 (76%);100ML BOTTLE 100 ML IV (12:36)
[2024-05-13] MEDS: SODIUM CHLORIDE 0.9% 10ML SYR (RAD ONLY) 10 ML IV (12:36)
[2024-05-13] MEDS: 0.9 % SODIUM CHLORIDE 50 ML VIAL IV (12:36)
== END 2024-05-13 23:59 | disposition home or self-care (01) ==
LOC: RT 10:52 → RAD 11:22
PROVIDERS: PCP Family Medicine; Visit Provider Nurse Practitioner Family
DX: R07.89 Other chest pain (principal); I10 Essential (primary) hypertension; R53.83 Other fatigue; E78.2 Mixed hyperlipidemia; F17.200 Nicotine dependence, unspecified, uncomplicated
CPT/HCPCS: 75574; 80048; 93306; Q9967

== ENCOUNTER 2024-06-29 08:19 | Day surgery (SDC) | payer MEDICARE, SELFPAY ==
[2024-06-29] VITALS (12 sets, daily range): BP systolic 106–139; BP diastolic 73–94; PULSE 59–82; RESP 15–18; TEMP 36.8–36.9; O2SAT 94–97; BMI 29.5
--- NOTE | 2024-06-29 07:10 | IR_ITS ---
APPROVED REPORT Patient Location: Outpatient [facility] Assistant: DEMETRIO Vizcarra RT (R) PROCEDURES Left heart catheterization Left ventriculogram Selective coronary angiogram Drug-eluting stent deployment to the mid LAD INDICATION Coronary artery disease, Accelerated angina pectoris, Abnormal CCTA Informed consent was obtained prior to the procedure. COMPLICATIONS None Estimated Blood Loss: Less than 10 mls TECHNIQUE One percent lidocaine used to anesthetize the right anterior aspect of the wrist. The right radial artery was accessed via the Seldinger technique. A 6 Slovak sheath was placed in the right radial artery. 2.5 mg of Verapamil, 800 mcg of nitroglycerin, 1mg Lidocaine and 5000 U Heparin were given through the arterial sheath. The papa catheter was also used to perform left heart catheterization, left ventriculogram and selective coronary angiogram. At the end the diagnostic angiogram therapeutic Was administered giving a therapeutic ACT and a guide catheter was placed in left main artery followed by Choice PT extra-support wire placed down the LAD. A 3 mm x 15 mm [place] frontier stent was deployed at 20 sangeeta reducing the stenosis to 0%. LEONARD-3 flow was present before and after the procedure. At the end procedure the apparatus was removed the sheath was removed good hemostasis was achieved using TR banding patient was transferred to the postop putting in stable condition ANGIOGRAPHIC RESULTS The left main artery Normal The left anterior descending artery Is proximally normal and has a hazy soft 70% stenosis followed by distal 20% stenosis The circumflex artery Large codominant with mild 10% luminal regularities The right coronary artery Codominant with a mid vessel tubular smooth 40 to 50% stenosis The ZAMORA ventriculogram reveals Normal 60% The left ventricular end-diastolic pressure 10 mmHg IMPRESSION Soft hazy plaque in the mid LAD with successful stenting reducing lesion to 0% with 1 drug-eluting stent Mild further mid to distal LAD disease Moderate disease in the mid right coronary artery Normal ejection fraction Normal left ventricular end-diastolic pressure PLAN 1. Effient and aspirin 2. LDL less than 55 to be achieved with high intensity statin 3. Avoidance of tobacco products 4. Factor modification 5. Cardiac rehabilitation Electronically signed by : Abiel Cm MD 06/29/2024 15:17:21
[2024-06-29 08:55] LABS: Basophils # 0.1 K/mm3 (0-0.2); Eosinophils # 0.3 K/mm3 (0.0-0.4); Eosinophils % 5.1 % (0.1-12.0); Hematocrit 46.6 % (42.0-52.0); Lymphocytes # 1.5 K/mm3 (0.7-4.5); Lymphocytes % 26.4 % (10-50); Mean Corpuscular HGB Conc 32.1 g/dL (31.8-35.4); Mean Corpuscular Hemoglobin 30.1 pg (27.0-31.2); Mean Platelet Volume 7.9 fl (7.4-10.4); Monocytes # 0.5 K/mm3 (0.1-1.0); Monocytes % 9.5 % (1.7-9.3); Neutrophils # 3.2 K/mm3 (1.8-7.8); Platelet Count 287 K/mm3 (142-424); Red Blood Count 4.96 M/mm3 (4.60-6.20); Red Cell Distribution Width 13.7 % (11.5-17.5); White Blood Count 5.5 K/mm3 (4.8-10.8)
[2024-06-29 09:00] LABS: Chloride 103 mmol/L (98-107); Sodium 137 mmol/L (136-145)
[2024-06-29 09:03] LABS: Blood Urea Nitrogen 9 mg/dl (9-20); Creatinine Clearance Estimated 134 mL/min (50-200); Estimated Glomerular Filt Rate 89 ml/min (>60); GFR (African American) 107 ML/MIN (>60)
[2024-06-29 09:04] LABS: Carbon Dioxide 30 mmol/L (22.0-30.0); Glucose 106 mg/dl (74-100)
[2024-06-29] MEDS: 0.9 % SODIUM CHLORIDE 500 ML 25 ML IV (09:48)
[2024-06-29] MEDS: VERAPAMIL 2.5MG/ML 2ML VIAL 2.5 MG IV (09:49)
[2024-06-29] MEDS: HEPARIN 1,000 UNITS/500ML NS (CATH LAB) 3000 UNIT IV (09:49)
[2024-06-29] MEDS: HEPARIN 1,000 UNITS/ML 10ML VIAL (CATH LAB) 10000 UNIT IV ×2 (09:52→10:28)
[2024-06-29] MEDS: LIDOCAINE 1% 10ML MDV 20 ML IJ (09:53)
[2024-06-29] MEDS: diphenhydrAMINE 50MG/ML VIAL 50 MG IV (09:53)
[2024-06-29] MEDS: NITROGLYCERIN 800MCG/8ML SYR (CATH LAB) 800 MCG IA (09:53)
[2024-06-29] MEDS: MIDAZOLAM HCL 1MG/1ML 5ML VIAL 1 MG IV (10:30)
[2024-06-29] MEDS: FENTANYL 100MCG/2ML VIAL 50 MCG IV (10:30)
[2024-06-29] MEDS: PRASUGREL 10MG TAB 60 MG PO (10:31)
[2024-06-29] MEDS: IOPAMIDOL-370 (76%);100ML BOTTLE 80 ML IV (14:10)
[2024-06-29 15:33] LABS: CATHL Activated Clotting Time > 400 SEC (74-125)
== END 2024-06-29 14:04 | disposition home or self-care (01) ==
PROVIDERS: Visit Provider Internal Medicine
DX: R93.1 Abnormal findings on diagnostic imaging of heart and coronary circulation (principal); R07.89 Other chest pain; R06.09 Other forms of dyspnea; I25.118 Atherosclerotic heart disease of native coronary artery with other forms of angina pectoris; Z79.899 Other long term (current) drug therapy; I11.9 Hypertensive heart disease without heart failure; I25.2 Old myocardial infarction; F17.210 Nicotine dependence, cigarettes, uncomplicated
CPT/HCPCS: 80048; 85025; 85347; 92928; 93458; 99152; C1725; C1769; C1874; C9600; J1200; J1644; J2250; J3010; Q9967

== ENCOUNTER 2024-07-02 08:36 | Outpatient (CLI) | payer MEDICARE, MEDICAID, SELFPAY ==
[2024-07-02 09:12] LABS: Basophils # 0.1 K/mm3 (0-0.2); Eosinophils # 0.2 K/mm3 (0.0-0.4); Eosinophils % 4.6 % (0.1-12.0); Hematocrit 47.1 % (42.0-52.0); Lymphocytes # 1.4 K/mm3 (0.7-4.5); Mean Corpuscular HGB Conc 31.8 g/dL (31.8-35.4); Mean Corpuscular Volume 94.5 fl (80-94); Mean Platelet Volume 8.1 fl (7.4-10.4); Monocytes # 0.6 K/mm3 (0.1-1.0); Monocytes % 11.4 % (1.7-9.3); Neutrophils # 2.7 K/mm3 (1.8-7.8); Platelet Count 308 K/mm3 (142-424); Red Blood Count 4.99 M/mm3 (4.60-6.20); Red Cell Distribution Width 13.9 % (11.5-17.5); White Blood Count 4.9 K/mm3 (4.8-10.8)
[2024-07-02 10:00] LABS: Alanine Aminotransferase 53 U/L (12-78); Albumin Level 4.3 g/dl (3.5-5.0); Albumin/Globulin Ratio 1.6 (1.1-1.8); Alkaline Phosphatase 106 U/L (38-126); Anion Gap 10.4 mEq/L (5-15); Aspartate Amino Transferase 45 U/L (17-59); Bilirubin,Total 0.7 mg/dl (0.2-1.3); Blood Urea Nitrogen 12 mg/dl (9-20); Calcium 9.3 mg/dl (8.4-10.2); Carbon Dioxide 29 mmol/L (22.0-30.0); Chloride 100 mmol/L (98-107); Estimated Glomerular Filt Rate 89 ml/min (>60); GFR (African American) 107 ML/MIN (>60); Globulin 2.7 g/dL (1.3-3.2); Glucose 86 mg/dl (74-100); Potassium 4.4 mmoL/L (3.5-5.1); Sodium 135 mmol/L (136-145)
== END 2024-07-02 23:59 | disposition home or self-care (01) ==
PROVIDERS: Otolaryngology; PCP Family Medicine; Visit Provider Internal Medicine
DX: I25.10 Atherosclerotic heart disease of native coronary artery without angina pectoris (principal); J38.3 Other diseases of vocal cords; Z98.61 Coronary angioplasty status; Z72.0 Tobacco use
CPT/HCPCS: 36415; 80053; 85025

== ENCOUNTER → 2024-07-26 08:14 | Day surgery (SDC) | payer MEDICARE, SELFPAY ==
[2024-07-23 16:21] VITALS: BMI 29.8
[2024-07-26 08:35] VITALS: BP 125/81; PULSE 77; RESP 18; TEMP 36.6; O2SAT 97; BMI 29.8
[2024-07-26] MEDS: LACTATED RINGERS 1000ML 1,000 ML 25 ML IV (08:48)
--- NOTE | 2024-07-26 09:21 | SUR.PREOP ---
Due to patient's recent heart cath and inability to stop thinners, anesthesia and MD Restrepo were in agreeance to postpone procedure due to bleeding risks.
== END ==
PROVIDERS: Visit Provider Otolaryngology
PROC: 0CBS8ZX Excision of Larynx, Via Natural or Artificial Opening Endoscopic, Diagnostic (ICD-10-PCS; principal; 2024-09-13 07:30)
DX: Z53.8 Procedure and treatment not carried out for other reasons (principal); R49.0 Dysphonia
CPT/HCPCS: J7120

== ENCOUNTER 2024-09-27 06:29 | Day surgery (SDC) | payer MEDICARE, SELFPAY ==
--- NOTE | 2024-09-24 10:54 | SUR.PREOP ---
1050: Message left on with she back number.
[2024-09-24 11:26] VITALS: BMI 29.1
[2024-09-27] VITALS (10 sets, daily range): BP systolic 114–144; BP diastolic 67–89; PULSE 57–75; RESP 16–22; TEMP 36.2–36.6; O2SAT 94–99
--- OUTSIDE RECORDS SUMMARY | 2024-09-27 06:31 | XMS_ITS ---
Laboratory report Created on: July 30, 2024 SHASHANK PANDYA JR : 1970 Sex: Male Author Name SHASHANK SHANNON Organization Unknown PROBLEMS Problems List Code Description E78.5 RESULTS Laboratory Orders Date Order Code Test 2023-05-29 697133 COMP. METABOLIC PANEL (14) 2023-05-29 297700 LIPID PANEL 2023-05-29 784302 TSH Laboratory Results Date LOINC Test Value Unit Reference Range Interpre tation 2023-05-29 2345-7 GLUCOSE 96 MG/DL 70-99 2023-05-29 3094-0 BUN 7 MG/DL 6-24 2023-05-29 2160-0 CREATININE .78 MG/DL 0.76-1.27 2023-05-29 30462-8 EGFR 108 ML/MIN/1.7 3 >59 2023-05-29 3097-3 BUN/CREATININE RATIO 9 9-20 2023-05-29 2951-2 SODIUM 132 MMOL/L 134-144 L 2023-05-29 2823-3 POTASSIUM 4.3 MMOL/L 3.5-5.2 2023-05-29 2075-0 CHLORIDE 95 MMOL/L 96-106 L 2023-05-29 2028-9 CARBON DIOXIDE, TOTAL 21 MMOL/L 20-29 2023-05-29 72715-7 CALCIUM 9.1 MG/DL 8.7-10.2 2023-05-29 2885-2 PROTEIN, TOTAL 6.8 G/DL 6.0-8.5 2023-05-29 1751-7 ALBUMIN 4.5 G/DL 3.8-4.9 2023-05-29 53925-9 GLOBULIN, TOTAL 2.3 G/DL 1.5-4.5 2023-05-29 1759-0 A/G RATIO 2 1.2-2.2 2023-05-29 1975-2 BILIRUBIN, TOTAL .5 MG/DL 0.0-1.2 2023-05-29 6768-6 ALKALINE PHOSPHATASE 110 IU/L 44-121 2023-05-29 1920-8 AST (SGOT) 25 IU/L 0-40 2023-05-29 1742-6 ALT (SGPT) 27 IU/L 0-44 2023-05-29 2093-3 CHOLESTEROL, TOTAL 192 MG/DL 568-247 9780-07-13 2571-8 TRIGLYCERIDES 144 MG/DL 0-149 2023-05-295-9 HDL CHOLESTEROL 39 MG/DL >39 L 2023-05-29 17958-6 VLDL CHOLESTEROL TATI 26 MG/DL 5-40 2023-05-29 10060-1 LDL CHOL CALC ([facility]) 127 MG/DL 0-99 H 2023-05-29 29005-0 TSH .458 UIU/ML 0.450-4.500
--- OUTSIDE RECORDS SUMMARY | 2024-09-27 06:31 | XMS_ITS ---
Laboratory report Created on: July 30, 2024 SHASHANK PANDYA : 1970 Sex: Male Author Name JUAN INGRAM Organization Unknown PROBLEMS Problems List Code Description Z79.891 M47.816 RESULTS Laboratory Orders Date Order Code Test 2022-04-16 [id number] TOXASSURE SELECT 13 (MW) Laboratory Results Date LOINC Test Value Unit Reference Range Interpretation 55985-4 SUMMARY REPORT (SUMMARY) FINAL 63606-5 PDF IMAGE 2161-8 CREATININE 44 MG/DL 89311-4 ALCOHOL, ETHYL N 21598-0 ALCOHOL, ETHYL NOTDET G/DL 39034-0 AMPHETAMINES N 58704-5 METHAMPHETAMINE NOTDET NG/MG CREAT 17339-5 AMPHETAMINE NOTDET NG/MG CREAT 19887-1 MDMA (ECSTASY) NOTDET NG/MG CREAT 62071-9 MDA (ECSTASY METABOLITE) NOTDET NG/MG CREAT 77276-1 BENZODIAZEPINES N 75151-9 DIAZEPAM NOTDET NG/MG CREAT 11265-3 DESMETHYLDIAZEPAM NOTDET NG/MG CREAT 11252-5 OXAZEPAM NOTDET NG/MG CREAT 50112-3 TEMAZEPAM NOTDET NG/MG CREAT 64171-7 ALPRAZOLAM NOTDET NG/MG CREAT 71475-0 ALPHA-HYDROXYALPRAZOLAM NOTDET NG/MG CREAT 37614-0 DESALKYLFLURAZEPAM NOTDET NG/MG CREAT 70224-4 LORAZEPAM NOTDET NG/MG CREAT 69935-1 ALPHA-HYDROXYTRIAZOLAM NOTDET NG/MG CREAT 39446-4 CLONAZEPAM NOTDET NG/MG CREAT 28620-0 7-AMINOCLONAZEPAM NOTDET NG/MG CREAT 90141-1 MIDAZOLAM NOTDET NG/MG CREAT 81084-9 ALPHA-HYDROXYMIDAZOLAM NOTDET NG/MG CREAT 21883-1 FLUNITRAZEPAM NOTDET NG/MG CREAT 24348-7 DESMETHYLFLUNITRAZEPAM NOTDET NG/MG CREAT 85994-8 COCAINE + METABOLITE N 79391-4 COCAINE NOTDET NG/MG CREAT 42392-7 BENZOYLECGONINE NOTDET NG/MG CREAT 33270-2 COCAETHYLENE NOTDET NG/MG CREAT 31789-9 6-ACETYLMORPHINE N 74977-6 6-ACETYLMORPHINE NOTDET NG/MG CREAT 48835-4 OPIATE CLASS N 96395-1 CODEINE NOTDET NG/MG CREAT 87624-1 MORPHINE NOTDET NG/MG CREAT 51243-4 NORMORPHINE NOTDET NG/MG CREAT 65858-0 NORCODEINE NOTDET NG/MG CREAT 43370-4 HYDROCODONE NOTDET NG/MG CREAT 96639-0 HYDROMORPHONE NOTDET NG/MG CREAT 40701-9 DIHYDROCODEINE NOTDET NG/MG CREAT 64900-7 NORHYDROCODONE NOTDET NG/MG CREAT 03023-9 OXYCODONE CLASS N 18087-6 OXYCODONE NOTDET NG/MG CREAT 44370-7 OXYMORPHONE NOTDET NG/MG CREAT 63912-7 NOROXYCODONE NOTDET NG/MG CREAT 73255-4 NOROXYMORPHONE NOTDET NG/MG CREAT 19615-2 FENTANYL & ANALOGUES N 22437-2 FENTANYL NOTDET NG/MG CREAT 82817-7 NORFENTANYL NOTDET NG/MG CREAT 03954-0 SUFENTANIL NOTDET NG/MG CREAT 74524-4 ALFENTANIL NOTDET NG/MG CREAT 91884-4 BUPRENORPHINE N 17100-3 BUPRENORPHINE NOTDET NG/MG CREAT 99110-6 NORBUPRENORPHINE NOTDET NG/MG CREAT 78369-6 METHADONE N 99152-1 METHADONE NOTDET NG/MG CREAT 19864-3 EDDP (METHADONE MTB) NOTDET NG/MG CREAT 60463-4 TAPENTADOL N 91764-1 TAPENTADOL NOTDET NG/MG CREAT 24962-8 OTHER OPIOIDS N 45064-8 TRAMADOL NOTDET NG/MG CREAT 18718-9 O-DESMETHYLTRAMADOL NOTDET NG/MG CREAT 32674-4 N-DESMETHYLTRAMADOL NOTDET NG/MG CREAT 25388-8 CANNABINOIDS N 18385-3 CARBOXY-THC NOTDET NG/MG CREAT 73544-2 BARBITURATES N 76720-5 AMOBARBITAL NOTDET 27214-0 BARBITAL NOTDET 81647-7 BUTABARBITAL NOTDET 86764-8 BUTALBITAL NOTDET 46712-9 MEPHOBARBITAL NOTDET 64823-5 PENTOBARBITAL NOTDET 08869-8 PHENOBARBITAL NOTDET 43072-8 SECOBARBITAL NOTDET 06971-3 THIOPENTAL NOTDET
--- OUTSIDE RECORDS SUMMARY | 2024-09-27 06:31 | XMS_ITS ---
Laboratory report Created on: July 30, 2024 SHASHANK PANDYA : 1970 Sex: Male Author Organization Unknown PROBLEMS Problems List Code Description RESULTS Laboratory Orders Date Order Code Test 2023-01-16 137710 TOXASSURE SELECT 13 (MW) Laboratory Results Date LOINC Test Value Unit Reference Range Interpretation 13249-4 SUMMARY REPORT (SUMMARY) FINAL 40701-0 PDF IMAGE 2161-8 CREATININE 29 MG/DL 81505-5 ALCOHOL, ETHYL N 71911-5 ALCOHOL, ETHYL NOTDET G/DL 63022-6 AMPHETAMINES N 16517-8 METHAMPHETAMINE NOTDET NG/MG CREAT 52830-8 AMPHETAMINE NOTDET NG/MG CREAT 16530-9 MDMA (ECSTASY) NOTDET NG/MG CREAT 19993-4 MDA (ECSTASY METABOLITE) NOTDET NG/MG CREAT 03006-6 BENZODIAZEPINES N 77439-6 DIAZEPAM NOTDET NG/MG CREAT 26861-6 DESMETHYLDIAZEPAM NOTDET NG/MG CREAT 35925-1 OXAZEPAM NOTDET NG/MG CREAT 00743-5 TEMAZEPAM NOTDET NG/MG CREAT 42979-3 ALPRAZOLAM NOTDET NG/MG CREAT 57671-4 ALPHA-HYDROXYALPRAZOLAM NOTDET NG/MG CREAT 91750-1 DESALKYLFLURAZEPAM NOTDET NG/MG CREAT 33069-0 LORAZEPAM NOTDET NG/MG CREAT 54484-8 ALPHA-HYDROXYTRIAZOLAM NOTDET NG/MG CREAT 04273-2 CLONAZEPAM NOTDET NG/MG CREAT 71886-8 7-AMINOCLONAZEPAM NOTDET NG/MG CREAT 46210-8 MIDAZOLAM NOTDET NG/MG CREAT 13614-1 ALPHA-HYDROXYMIDAZOLAM NOTDET NG/MG CREAT 49225-2 FLUNITRAZEPAM NOTDET NG/MG CREAT 10823-4 DESMETHYLFLUNITRAZEPAM NOTDET NG/MG CREAT 03124-2 COCAINE + METABOLITE N 52726-7 COCAINE NOTDET NG/MG CREAT 48364-9 BENZOYLECGONINE NOTDET NG/MG CREAT 56319-1 COCAETHYLENE NOTDET NG/MG CREAT 35758-5 6-ACETYLMORPHINE N 40241-4 6-ACETYLMORPHINE NOTDET NG/MG CREAT 20030-7 OPIATE CLASS MX++PO 40920-6 CODEINE NOTDET NG/MG CREAT 92547-6 MORPHINE NOTDET NG/MG CREAT 86162-6 NORMORPHINE NOTDET NG/MG CREAT 33866-5 NORCODEINE NOTDET NG/MG CREAT 85886-9 HYDROCODONE 1331 NG/MG CREAT 62818-3 HYDROMORPHONE 431 NG/MG CREAT 62294-5 DIHYDROCODEINE NOTDET NG/MG CREAT 34989-2 NORHYDROCODONE 497 NG/MG CREAT 36637-0 OXYCODONE CLASS N 02386-4 OXYCODONE NOTDET NG/MG CREAT 26205-0 OXYMORPHONE NOTDET NG/MG CREAT 17550-8 NOROXYCODONE NOTDET NG/MG CREAT 55020-9 NOROXYMORPHONE NOTDET NG/MG CREAT 81896-1 FENTANYL & ANALOGUES N 33355-5 FENTANYL NOTDET NG/MG CREAT 87000-0 NORFENTANYL NOTDET NG/MG CREAT 49822-2 SUFENTANIL NOTDET NG/MG CREAT 41867-1 ALFENTANIL NOTDET NG/MG CREAT 49778-5 BUPRENORPHINE N 98586-2 BUPRENORPHINE NOTDET NG/MG CREAT 71362-2 NORBUPRENORPHINE NOTDET NG/MG CREAT 06756-2 METHADONE N 92623-2 METHADONE NOTDET NG/MG CREAT 83573-7 EDDP (METHADONE MTB) NOTDET NG/MG CREAT 26134-7 TAPENTADOL N 37257-7 TAPENTADOL NOTDET NG/MG CREAT 32329-4 OTHER OPIOIDS N 89693-9 TRAMADOL NOTDET NG/MG CREAT 32223-0 O-DESMETHYLTRAMADOL NOTDET NG/MG CREAT 87887-5 N-DESMETHYLTRAMADOL NOTDET NG/MG CREAT 63663-2 CANNABINOIDS N 20074-7 CARBOXY-THC NOTDET NG/MG CREAT 56089-4 BARBITURATES N 17038-0 AMOBARBITAL NOTDET 93481-7 BARBITAL NOTDET 22246-0 BUTABARBITAL NOTDET 17117-1 BUTALBITAL NOTDET 63766-0 MEPHOBARBITAL NOTDET 83152-1 PENTOBARBITAL NOTDET 07978-7 PHENOBARBITAL NOTDET 87411-2 SECOBARBITAL NOTDET 48079-8 THIOPENTAL NOTDET
--- NOTE | 2024-09-27 07:26 | P.PNANES_ITS ---
[facility] Disclaimer: The information contained in this section may have been updated after the patient was seen, as this information can be updated by other users. Medical History Coronary artery disease Angina pectoris Abnormal findings on diagnostic imaging of heart and coronary circulation Lesion of vocal cord Hoarseness Anxiety History of gastroesophageal reflux (GERD) Hypertension Heart attack COPD mixed type Pulmonary emphysema Dyspnea on exertion Smoking greater than 30 pack years Hoarseness of voice Emphysema lung Erectile dysfunction Chest pain Surgical History H/O heart artery stent History of ear surgery History of hernia surgery Family History Other Asthma COPD (chronic obstructive pulmonary disease) Diabetes Heart attack Hypertension Lung cancer Social History (Updated 09/24/24 @ 11:23 by Tonya Simental) Smoking Status: Current every day smoker alcohol intake: never substance use type: denies use current occupational status: disabled Travel in the last 8 weeks: None [facility] Anesthesia Checklist Patient Identification Patient Identification: Arm Band and Verbal (Name & ) Structural Data Admitted From: Home Planned Operative Procedure/s: MDL w/Bx Consent for Planned Operative Procedure(s) Verified: Yes Verified Documents: Surgical Consent and History and Physical NPO Status Verified Time NPO: 05:00 Chart Verification Results Verified: CBC, BMP, ECG and Chest Xray Additional verifications Patient : No Anesthesia Reactions: No Hx Blood Transfusions: No Blood Transfusion Reaction: No Cardiovascular Assessment Heart Sounds: S1 & S2 Pulse Rhythm: Irregular Peripheral Edema: No Airway Assessment Mallampati Score:: Class II C-Spine Mobility Assessed: Yes (FROM demonstrated) TMJ Mobility Assessed: Yes Dentition: Edentulous Neurological Assessment Level of Consciousness: Awake, Alert, Appropriate and Follows Commands Hx Seizures: No Numbness or tingling in extremities: No Anesthesia Plan Anesthesia Risk discussed: Yes Anesthesia Plan: Verified ASA Class: III Anesthesia Type: General
[2024-09-27] MEDS: LACTATED RINGERS 1000ML 1,000 ML 25 ML IV (07:41)
--- NOTE | 2024-09-27 07:45 | SUR.PREOP ---
Pt not able to stop effient or ASA per cardiology. Spoke w/ Dr. Restrepo and made him aware of this. is okay w/ proceeding w/ procedure. ASA and effient taken this AM.
[2024-09-27] MEDS: LIDOCAINE 4% 50 ML (09:16)
[2024-09-27] MEDS: OXYMETAZOLINE NASAL SPRAY 0.05% 15ML 15 ML NS (09:16)
--- NOTE | 2024-09-27 09:39 | P.OP_ITS ---
Date of procedure: 09/27/24 Pre-op Diagnosis:: Hoarseness Left vocal cord lesion Post-op Diagnosis:: Same?pathology pending Procedure performed:: Microscopic direct laryngoscopy with biopsy of left vocal cord Surgeon:: Terry Restrepo III, MD Information Technology Auditor(s):: None DESKTOP TECHNICIAN:: Antony Huynh Anesthesia: GETA Estimated blood loss (mL): 10 Operative findings:: Patient had a fungating mass on the anteriormost portion of the left vocal cord. It was not affecting the anterior commissure area. He had a compensatory edematous change on the right anterior cord but did not look like a lesion. Operative note:: The patient was brought to the operating room placed for general endotracheal anesthesia. He had a dental protector applied on to his upper gums. The suspension laryngoscope was then used to expose the hypopharynx and larynx. He did have a lesion of the anterior most portion of the left vocal cord that was not encroaching the anterior commissure. Under microscopic guidance is able to remove this with blunt dissection and sent it for pathologic confirmation. There is no evidence any other abnormalities other than some edema both anterior cords. I applied topical lidocaine and adrenaline on cottonoids. Any bleeding was quelled. The patient was then awakened in the operating room taken recovery good condition. Condition: stable Disposition: PACU Complications:: none
--- NOTE | 2024-09-27 09:41 | EXP.ANES.I ---
[facility] Anesthesia Record Part I Anesthesia Record I Intake, IV Amount: 300 Hydration: Adequate Estimated blood loss (mL): 4 Urine output (mL): 0 Blood Products used (#): none Blood Pressure: 144/89 SaO2: 98 Pulse Rate: 67 Airway Patency: Patent Respiratory Rate: 22 Temperature: 97.2 F Patient is:: Drowsy and Stable Stable to PACU at:: 09:30
--- NOTE | 2024-09-29 10:15 | EXP.ANES.II ---
[facility] Anesthesia Record Part II Anesthesia Record Part II Discharge Time: 10:00 Destination: Surgical Day Care (OP Surgery) PACU nurse assessment reviewed?: Yes Patient Condition:: Good Anesthesia Complications:: None Swallowing reflex intact?: Yes Airway Patency: Patent Cyanosis?: No Blood Pressure: 137/84 SaO2: 97 Respiratory Rate: 16 Pulse Rate: 61 Temperature: 97.1 F Mental Status: Alert & Oriented Pain level:: 0 Nausea and/or vomitting:: None Intake, IV Amount: 0 Hydration: Adequate
[2024-09-29 10:16] VITALS: BP 137/84; PULSE 61; RESP 16; TEMP 36.2; O2SAT 97
== END 2024-09-27 10:31 | disposition home or self-care (01) ==
PROVIDERS: Visit Provider Otolaryngology
PROC: 0CBS8ZX Excision of Larynx, Via Natural or Artificial Opening Endoscopic, Diagnostic (ICD-10-PCS; CPT 31536; principal; 2024-09-27 08:15)
DX: R49.0 Dysphonia (principal); J39.8 Other specified diseases of upper respiratory tract; Z72.0 Tobacco use
CPT/HCPCS: 31536; 88305; 88312; 88313; J1100; J2405; J3010; J7120

== ENCOUNTER 2025-03-14 15:39 | Emergency (ER) | payer MEDICARE, SELFPAY ==
[2025-03-14] VITALS (7 sets, daily range): BP systolic 112–142; BP diastolic 88–94; PULSE 90–104; RESP 14–20; TEMP 36.6–36.7; O2SAT 94–96; BMI 28.3
--- NOTE | 2025-03-14 15:40 | ECG_ITS ---
APPROVED REPORT Exam: Resting ECG HR:102 bpm ECG Measurements Heart Rate 102 AXES CA 160 P 51 QRSd 81 QRS 42 QT 316 T 63 QTc 374 Conclusion SINUS TACHYCARDIA Electronically signed by : Sarthak Burnett, 03/14/2025 20:46:44
--- NOTE | 2025-03-14 15:44 | XR_ITS ---
FINAL REPORT CLINICAL HISTORY: Chest pain and shortness of breath COMPARISON: 05/21/2022 FINDINGS: The heart size is normal. The mediastinum is normal. Mild atelectasis is noted at the left lung base. There are no pleural effusions. There is no pneumothorax. There is no osseous abnormality. IMPRESSION: Left basilar atelectasis. Reviewed, Interpreted and Dictated by Duran Larios MD Transcribed by Lluvia Cyr Authenticated and [facility]
--- NOTE | 2025-03-14 15:51 | HMH.EDCP ---
Discharge Plan Disposition Patient Disposition: Home, Self-Care Prescriptions Prescriptions: New amoxicillin-pot clavulanate 875-125 mg tablet 1 tab PO BID 10 Days Qty: 20 0RF azithromycin 500 mg tablet 500 mg PO DAILY 5 Days Qty: 5 0RF No Action carvedilol [Coreg] 12.5 mg tablet 6.25 mg PO TID amlodipine 10 mg tablet 10 mg PO DAILY gabapentin 300 mg capsule 300 mg PO TID omeprazole 40 mg capsule,delayed release(DR/EC) 40 mg PO DAILY prasugrel HCl [Effient] 10 mg tablet 10 mg PO DAILY Qty: 90 3RF buspirone 10 mg tablet 10 mg PO TID lisinopril-hydrochlorothiazide 20-25 mg tablet 1 tab PO DAILY Qty: 90 3RF albuterol sulfate 90 mcg/actuation HFA aerosol inhaler 2 inh inhalation QID PRN (Reason: shortness of breath or wheezing) 90 Days Qty: 8.5 2RF atorvastatin 40 mg tablet 40 mg PO DAILY Qty: 90 3RF aspirin [Adult Aspirin Regimen] 81 mg tablet,delayed release (DR/EC) 81 mg PO DAILY Qty: 90 3RF tizanidine 2 mg tablet 2 mg PO HS hydrocodone-acetaminophen 5-325 mg tablet 1 tab PO TID Patient Comments: TAKE ONE TABLET BY MOUTH THREE TIMES DAILY tadalafil 20 mg tablet PO Patient Comments: TAKE ONE (1) TABLET EVERY DAY BY ORAL ROUTE NEEDED. triamcinolone acetonide 0.1 % cream topical clotrimazole-betamethasone 1-0.05 % cream topical Patient Comments: APPLY TWICE DAILY ondansetron 4 mg tablet,disintegrating 4 mg PO Q8H PRN (Reason: nausea and vomiting) Qty: 10 0RF Referrals Follow up/Referrals: Provider,Referral, MD [Primary Care Provider] - See instructions Activity Restrictions/Add. Instructions Additional Instructions/Restrictions: Today you were evaluated in the emergency department and diagnosed with a left-sided pneumonia. Please take both of your oral antibiotics as directed. You have a enlarged lymph node that may be reactive, this will need follow-up. As we discussed, please follow-up with your primary care provider in about 3 to 5 days. Return to the ED for any worsening of your condition. Clinical Impressions Clinical Impression: Lymph node enlargement Pneumonia Qualifiers: Pneumonia type: due to unspecified organism Laterality: left Lung location: unspecified part of lung Qualified Code(s): J18.9 - Pneumonia, unspecified organism Instructions Patient Instructions: Pneumonia--Adult Print Language Print Language: [place] Discharge ED Provider: Sarthak Burnett HPI <Constance Almonte APRN - Last Filed: 03/14/25 18:37> General Chief Complaint: Chest Pain Stated Complaint: Chest Pain Time Seen by Provider: 03/14/25 15:44 History of Present Illness HPI narrative: patient is a 54-year-old male PMHx CAD (PCI Aug 2024 on BT), hypertension, HLD, DE, currently being worked up by pulmonology for COPD, who presents to the ED for complaints of 5 days of intermittent right-sided chest pain. Related Data Home Medications ?Medication ?Instructions ?Recorded ?Confirmed amlodipine 10 mg tablet 10 mg PO DAILY 05/28/22 10/20/24 carvedilol 12.5 mg tablet (Coreg) 6.25 mg PO TID 05/28/22 10/20/24 gabapentin 300 mg capsule 300 mg PO TID 05/28/22 10/20/24 omeprazole 40 mg capsule,delayed 40 mg PO DAILY 05/28/22 10/20/24 release buspirone 10 mg tablet 10 mg PO TID 06/13/22 10/20/24 hydrocodone 5 mg-acetaminophen 325 1 tab PO TID 10/06/24 10/20/24 mg tablet tizanidine 2 mg tablet 2 mg PO HS 10/06/24 10/20/24 clotrimazole-betamethasone 1 applic topical 10/20/24 10/20/24 %-0.05 % topical cream tadalafil 20 mg tablet mg PO 10/20/24 10/20/24 triamcinolone acetonide 0.1 % applic topical 10/20/24 10/20/24 topical cream Previous Rx's ?Medication ?Instructions ?Recorded lisinopril 20 1 tab PO DAILY #90 tabs 06/13/22 mg-hydrochlorothiazide 25 mg tablet albuterol sulfate 90 mcg/actuation 2 inh inhalation QID PRN shortness 04/11/23 aerosol inhaler of breath or wheezing 90 days #8.5 grams aspirin 81 mg tablet,delayed 81 mg PO DAILY #90 tabs 06/16/24 release (Adult Aspirin Regimen) atorvastatin 40 mg tablet 40 mg PO DAILY #90 tabs 06/16/24 prasugrel HCl 10 mg tablet 10 mg PO DAILY #90 tabs 07/06/24 (Effient) ondansetron 4 mg disintegrating 4 mg PO Q8H PRN nausea and 09/27/24 tablet vomiting #10 tabs amoxicillin 875 mg-potassium 1 tab PO BID 10 days #20 tabs 03/14/25 clavulanate 125 mg tablet azithromycin 500 mg tablet 500 mg PO DAILY 5 days #5 tabs 03/14/25 Allergies Allergy/AdvReac Type Severity Reaction Status Date / Time Sulfa (Sulfonamide AdvReac Intermediate Rash Verified 10/20/24 09:47 Antibiotics) [facility] <Constance Almonte APRN - Last Filed: 03/14/25 18:37> [facility] Disclaimer: The information contained in this section may have been updated after the patient was seen, as this information can be updated by other users. Medical History Coronary artery disease Angina pectoris Abnormal findings on diagnostic imaging of heart and coronary circulation Lesion of vocal cord Hoarseness Anxiety History of gastroesophageal reflux (GERD) Hypertension Heart attack X2 COPD mixed type Pulmonary emphysema Dyspnea on exertion Smoking greater than 30 pack years Hoarseness of voice Exam and photos document a anterior round lesion affecting vocal cord closure. It does appear to be coming from the left anterior cord but somewhat difficult to tell. Emphysema lung Erectile dysfunction Chest pain Surgical History History of throat surgery H/O heart artery stent History of ear surgery History of hernia surgery Family History Other Asthma COPD (chronic obstructive pulmonary disease) Diabetes Heart attack Hypertension Lung cancer Social History Smoking Status: Current every day smoker alcohol intake: never substance use type: denies use current occupational status: disabled Travel in the last 8 weeks?: None Have you lived/traveled outside [place] in past 30 days?: No Contact w/someone who lives/traveled outside US past 30 days?: No Exposure to someone with infectious disease in past 14 days?: No Do you have a fever (greater than 100.4 F or 38 C)?: No Have you tested positive for COVID-19?: No Exposed to someone with COVID-19 in past 14 days?: No Do you have a sore throat?: No Do you have a cough?: No Do you have any weakness?: No Do you have any diarrhea?: No Are you experiencing any unusual bleeding?: No Do you have any muscle aches/pain?: No Do you have any abdominal pain?: No Are you experiencing loss of taste or smell?: No Other Medical History Have you received the Flu Vaccine for this season: Yes Have you received the Pneumonia Vaccine: No <Constance Almonte APRN - Last Filed: 03/14/25 18:37> ROS Obtained: Yes Systems reviewed as appropriate & no additional complaints except as documented Physical Exam <Constance Almonte APRN - Last Filed: 03/14/25 18:37> General General appearance: alert and in no apparent distress Head Head exam: atraumatic and normocephalic Eye Eye exam: Present normal appearance and PERRL; Absent nystagmus ENT ENT exam: Present normal exam Neck Neck exam: Present normal inspection Chest Chest inspection: Present normal inspection and symmetric chest wall rise; Absent tenderness Respiratory Respiratory exam: Present normal lung sounds bilaterally Cardiovascular Cardiovascular exam: Present tachycardia Abdominal Exam Abdominal exam: Present soft and normal bowel sounds; Absent tenderness Extremities Exam Extremities exam: Present normal inspection and full ROM Back Exam Back exam: Present normal inspection and full ROM; Absent tenderness Neurological Exam Neurological exam: Present alert and oriented X3 Psychiatric Psychiatric exam: Present normal affect and normal mood Skin Skin exam: Present warm and dry HEART Score <Constance Almonte APRN - Last Filed: 03/14/25 18:37> HEART Score HEART Score assessment performed?: Yes History (anamnesis): Slightly suspicious ECG: Non-specific disturbance Age: 45-65 years Risk factors: 1-2 risk factors Troponin: </= normal limit HEART Score: 3 <Sarthak Burnett MD - Last Filed: 03/14/25 19:45> HEART Score HEART Score: 3 Critical Care <Constance Almonte APRN - Last Filed: 03/14/25 18:37> Critical Care Time Critical Care Time: No Medical Decision Making <Constance Almonte APRN - Last Filed: 03/14/25 18:37> Sid Inquiry Pt receiving controlled substance: No Vital Signs Vital Signs: 03/14/25 15:46 03/14/25 15:53 03/14/25 16:00 Temperature 97.8 F Temperature Source Oral Pulse Rate 100 H 95 H Pulse Rate [Left Radial] 100 H Respiratory Rate 20 18 Blood Pressure 121/91 H Blood Pressure [Right Arm] 142/94 H Blood Pressure Mean 104 Blood Pressure Mean [Right Arm] 110 Blood Pressure Source Blood Pressure Position 02 Sat by Pulse Oximetry 96 94 L Oxygen Delivery Method Room Air 03/14/25 16:30 03/14/25 17:00 03/14/25 17:30 Temperature Temperature Source Pulse Rate 95 H 93 H 104 H Pulse Rate [Left Radial] Respiratory Rate 18 14 16 Blood Pressure 123/91 H 131/88 112/93 H Blood Pressure [Right Arm] Blood Pressure Mean 101 94 97 Blood Pressure Mean [Right Arm] Blood Pressure Source Blood Pressure Position 02 Sat by Pulse Oximetry 94 L 94 L 95 Oxygen Delivery Method 03/14/25 18:25 Temperature 98.0 F Temperature Source Oral Pulse Rate 90 Pulse Rate [Left Radial] Respiratory Rate 18 Blood Pressure 112/93 H Blood Pressure [Right Arm] Blood Pressure Mean Blood Pressure Mean [Right Arm] Blood Pressure Source Automatic Cuff Blood Pressure Position Sitting 02 Sat by Pulse Oximetry Oxygen Delivery Method Room Air Lab Data Labs: Lab Results 03/14/25 15:44: WBC 5.3, RBC 4.42 L, Hgb 14.0 L, Hct 39.9 L, MCV 90.3, MCH 31.7 H, MCHC 35.1, RDW 12.6, Plt Count 325, MPV 8.6, Neut % (Auto) 51.9, Lymph % (Auto) 30.0, Victoria % (Auto) 16.1 H, Eos % (Auto) 0.8, Baso % (Auto) 0.6, Neut # (Auto) 2.7, Lymph # (Auto) 1.6, Victoria # (Auto) 0.9, Eos # (Auto) 0.0, Baso # (Auto) 0.0, D-Dimer 0.81 H, Sodium 131 L, Potassium 3.7, Chloride 98, Carbon Dioxide 25, Anion Gap 11.7, BUN 6 L, Creatinine 0.70, Estimated Creat Clear 166, Estimated GFR 118, Est GFR ( Amer) 143, Glucose 134 H, Calcium 9.3, Total Bilirubin 0.7, AST 21, ALT 30, Alkaline Phosphatase 91, Troponin I < 0.01, NT-Pro-B Natriuret Pep 26.0, Total Protein 7.3, Albumin 4.4, Globulin 2.9, Albumin/Globulin Ratio 1.5 03/14/25 15:44 03/14/25 15:44 Response Orders (Tests/Meds): ED MEDICATIONS Discontinued Medications Generic Name Dose Route Start Last Admin Trade Name Freq PRN Reason Stop Dose Admin Amoxicillin/Clavulanate Potassium 1 each 03/14/25 17:33 03/14/25 17:39 Amoxicillin/Clavulanate Potassium 875/125mg Tablet PO 03/14/25 17:34 1 each ONCE ONE Administration Aspirin 324 mg 03/14/25 15:44 03/14/25 16:02 Aspirin 81mg Chewable Tablet PO 03/14/25 15:45 324 mg ONCE ONE Administration Iopamidol 70 ml 03/14/25 16:44 03/14/25 16:45 Iopamidol-370 (76%);100ml Bottle IV 03/14/25 16:45 70 ml ONCE ONE Administration Sodium Chloride 10 ml 03/14/25 16:44 03/14/25 16:45 Sodium Chloride 0.9% 10ml Syr (Rad Only) IV 03/14/25 16:45 10 ml ONCE ONE Administration Sodium Chloride 50 ml 03/14/25 16:44 03/14/25 16:45 0.9 % Sodium Chloride 50 Ml Vial IV 03/14/25 16:45 50 ml ONCE ONE Administration ORDERS Category Date Time Status CT angio chest PE protocol Stat Cat Scan 03/14/25 16:19 Completed CXR --portable [XR chest portable] Stat Exams 03/14/25 15:44 Completed BNP [NT Pro Brain Natriuretic Pep.] Stat Lab 03/14/25 15:44 Completed CBC w/Auto Diff [Complete Blood Count Auto Diff] Stat Lab 03/14/25 15:44 Completed CMP [Comprehensive Metabolic Panel] Stat Lab 03/14/25 15:44 Completed D-Dimer Stat Lab 03/14/25 15:44 Completed Trop I [Troponin I] Stat Lab 03/14/25 15:44 Completed MDM Narrative Medical Decision Narrative: In summary, patient is a 54-[facility] Aug [facility] hypertension, HLD, DE, currently being worked up by pulmonology for COPD, who presents to the ED for complaints of 5 days of intermittent right-sided chest pain. Patient describes the chest pain as a dull pain, denies any radiation of pain. He states that he went to his PCP earlier today and was advised to come to the ED. Patient states that he smokes less than half pack of cigarettes a day for the past 30 years, drinks 10-12 beers each Friday. He states that last week he began coughing, thought he coughed up blood that he describes as a dark brown substance however has not had any since this episode. Patient does follow with cardiology regularly. He denies fever, chills, body aches, visual disturbances, posterior neck pain, abdominal pain, nausea, vomiting, dysuria. Upon initial evaluation patient is alert, oriented and cooperative. He is tachycardic. No chest wall tenderness. Abdomen is soft and nontender. Neuroexam is intact. Differential diagnosis include ACS, pulmonary embolism, dissection, pneumonia, pneumothorax, among others. Discussed with patient that we will proceed with CXR, hematologic labs and aspirin. Hematologic labs reviewed, CBC unremarkable for any leukocytosis, stable H&H. CMP remarkable for sodium 131, glucose 134. First troponin < 0.01. Dimer 0.81. Chest CTA remarkable for 1.2 cm prominent mediastinal lymph node, likely reactive. Diffuse left lung pneumonia worse in the left lung base with associated bronchitis. No pulmonary emboli. Upon reassessment, patient's condition has improved. He is hemodynamically stable. No complaints at this time. Given this, I feel that he is safe to be discharged home. Curb65 0. I discussed with the patient that the left-sided pneumonia that we will treat with Augmentin and azithromycin. Initial dose of antibiotics given in the ED. Advised him that they also have an enlarged lymph node which is most likely reactive but will also need follow-up. Advised him to follow-up with his PCP within 3 to 5 days. We discussed return precautions to the ED. Patient was hemodynamically stable and ambulatory from the ED <Sarthak Burnett MD - Last Filed: 03/14/25 19:45> Vital Signs Vital Signs: 03/14/25 15:46 03/14/25 15:53 03/14/25 16:00 Temperature 97.8 F Temperature Source Oral Pulse Rate 100 H 95 H Pulse Rate [Left Radial] 100 H Respiratory Rate 20 18 Blood Pressure 121/91 H Blood Pressure [Right Arm] 142/94 H Blood Pressure Mean 104 Blood Pressure Mean [Right Arm] 110 Blood Pressure Source Blood Pressure Position 02 Sat by Pulse Oximetry 96 94 L Oxygen Delivery Method Room Air 03/14/25 16:30 03/14/25 17:00 03/14/25 17:30 Temperature Temperature Source Pulse Rate 95 H 93 H 104 H Pulse Rate [Left Radial] Respiratory Rate 18 14 16 Blood Pressure 123/91 H 131/88 112/93 H Blood Pressure [Right Arm] Blood Pressure Mean 101 94 97 Blood Pressure Mean [Right Arm] Blood Pressure Source Blood Pressure Position 02 Sat by Pulse Oximetry 94 L 94 L 95 Oxygen Delivery Method 03/14/25 18:25 Temperature 98.0 F Temperature Source Oral Pulse Rate 90 Pulse Rate [Left Radial] Respiratory Rate 18 Blood Pressure 112/93 H Blood Pressure [Right Arm] Blood Pressure Mean Blood Pressure Mean [Right Arm] Blood Pressure Source Automatic Cuff Blood Pressure Position Sitting 02 Sat by Pulse Oximetry Oxygen Delivery Method Room Air Lab Data Labs: Lab Results 03/14/25 15:44: WBC 5.3, RBC 4.42 L, Hgb 14.0 L, Hct 39.9 L, MCV 90.3, MCH 31.7 H, MCHC 35.1, RDW 12.6, Plt Count 325, MPV 8.6, Neut % (Auto) 51.9, Lymph % (Auto) 30.0, Victoria % (Auto) 16.1 H, Eos % (Auto) 0.8, Baso % (Auto) 0.6, Neut # (Auto) 2.7, Lymph # (Auto) 1.6, Victoria # (Auto) 0.9, Eos # (Auto) 0.0, Baso # (Auto) 0.0, D-Dimer 0.81 H, Sodium 131 L, Potassium 3.7, Chloride 98, Carbon Dioxide 25, Anion Gap 11.7, BUN 6 L, Creatinine 0.70, Estimated Creat Clear 166, Estimated GFR 118, Est GFR ( Amer) 143, Glucose 134 H, Calcium 9.3, Total Bilirubin 0.7, AST 21, ALT 30, Alkaline Phosphatase 91, Troponin I < 0.01, NT-Pro-B Natriuret Pep 26.0, Total Protein 7.3, Albumin 4.4, Globulin 2.9, Albumin/Globulin Ratio 1.5 Response Orders (Tests/Meds): ED MEDICATIONS Discontinued Medications Generic Name Dose Route Start Last Admin Trade Name Freq PRN Reason Stop Dose Admin Amoxicillin/Clavulanate Potassium 1 each 03/14/25 17:33 03/14/25 17:39 Amoxicillin/Clavulanate Potassium 875/125mg Tablet PO 03/14/25 17:34 1 each ONCE ONE Administration Aspirin 324 mg 03/14/25 15:44 03/14/25 16:02 Aspirin 81mg Chewable Tablet PO 03/14/25 15:45 324 mg ONCE ONE Administration Iopamidol 70 ml 03/14/25 16:44 03/14/25 16:45 Iopamidol-370 (76%);100ml Bottle IV 03/14/25 16:45 70 ml ONCE ONE Administration Sodium Chloride 10 ml 03/14/25 16:44 03/14/25 16:45 Sodium Chloride 0.9% 10ml Syr (Rad Only) IV 03/14/25 16:45 10 ml ONCE ONE Administration Sodium Chloride 50 ml 03/14/25 16:44 03/14/25 16:45 0.9 % Sodium Chloride 50 Ml Vial IV 03/14/25 16:45 50 ml ONCE ONE Administration ORDERS Category Date Time Status CT angio chest PE protocol Stat Cat Scan 03/14/25 16:19 Completed CXR --portable [XR chest portable] Stat Exams 03/14/25 15:44 Completed BNP [NT Pro Brain Natriuretic Pep.] Stat Lab 03/14/25 15:44 Completed CBC w/Auto Diff [Complete Blood Count Auto Diff] Stat Lab 03/14/25 15:44 Completed CMP [Comprehensive Metabolic Panel] Stat Lab 03/14/25 15:44 Completed D-Dimer Stat Lab 03/14/25 15:44 Completed Trop I [Troponin I] Stat Lab 03/14/25 15:44 Completed ECG Data Tracing #1: Attestation: I reviewed this ECG and interpreted as documented below: ECG Narrative: Sinus tachycardia at a rate of 102, QTc 374, normal axis, no STEMI MDM Narrative Medical Decision Narrative: In summary, patient is a 54-year-old male PMHx CAD (PCI Aug 2024 on BT), hypertension, HLD, DE, currently being worked up by pulmonology for COPD, who presents to the ED for complaints of 5 days of intermittent right-sided chest pain. Patient describes the chest pain as a dull pain, denies any radiation of pain. He states that he went to his PCP earlier today and was advised to come to the ED. Patient states that he smokes less than half pack of cigarettes a day for the past 30 years, drinks 10-12 beers each Friday. He states that last week he began coughing, thought he coughed up blood that he describes as a dark brown substance however has not had any since this episode. Patient does follow with cardiology regularly. He denies fever, chills, body aches, visual disturbances, posterior neck pain, abdominal pain, nausea, vomiting, dysuria. Upon initial evaluation patient is alert, oriented and cooperative. He is tachycardic. No chest wall tenderness. Abdomen is soft and nontender. Neuroexam is intact. Differential diagnosis include ACS, pulmonary embolism, dissection, pneumonia, pneumothorax, among others. Discussed with patient that we will proceed with CXR, hematologic labs and aspirin. Hematologic labs reviewed, CBC unremarkable for any leukocytosis, stable H&H. CMP remarkable for sodium 131, glucose 134. First troponin < 0.01. Dimer 0.81. Chest CTA remarkable for 1.2 cm prominent mediastinal lymph node, likely reactive. Diffuse left lung pneumonia worse in the left lung base with associated bronchitis. No pulmonary emboli. Upon reassessment, patient's condition has improved. He is hemodynamically stable. No complaints at this time. Given this, I feel that he is safe to be discharged home. Curb65 0. I discussed with the patient that the left-sided pneumonia that we will treat with Augmentin and azithromycin. Initial dose of antibiotics given in the ED. Advised him that they also have an enlarged lymph node which is most likely reactive but will also need follow-up. Advised him to follow-up with his PCP within 3 to 5 days. We discussed return precautions to the ED. Patient was hemodynamically stable and ambulatory from the ED LUIS attestation I was consulted by the LUIS, and we discussed the complexity of problems being addressed. I approved the treatment and management plan for this patient's care in the emergency department, thus performing a substantial portion of the medical decision making. I evaluated the patient at bedside and also independently interpreted his CT PE, demonstrated a left lower lobe pneumonia. He was otherwise stable with a PSI score of 52. Appropriate for outpatient management of pneumonia, however hospitalization was considered. Sarthak Burnett MD
[2025-03-14 15:55] LABS: Basophils % 0.6 % (0.1-2.0); Eosinophils % 0.8 % (0.1-12.0); Hematocrit 39.9 % (42.0-52.0); Lymphocytes # 1.6 K/mm3 (0.7-4.5); Mean Corpuscular HGB Conc 35.1 g/dL (31.8-35.4); Mean Corpuscular Hemoglobin 31.7 pg (27.0-31.2); Mean Corpuscular Volume 90.3 fl (80-94); Mean Platelet Volume 8.6 fl (7.4-10.4); Monocytes # 0.9 K/mm3 (0.1-1.0); Monocytes % 16.1 % (1.7-9.3); Neutrophils # 2.7 K/mm3 (1.8-7.8); Neutrophils % 51.9 % (37.0-80.0); Nucleated Red Blood Cells # 0 10^3/uL; Nucleated Red Blood Cells % 0 %; Platelet Count 325 K/mm3 (142-424); Red Blood Count 4.42 M/mm3 (4.60-6.20); Red Cell Distribution Width 12.6 % (11.5-17.5); Red Cell Distribution Width-SD 41.3 fL; White Blood Count 5.3 K/mm3 (4.8-10.8)
[2025-03-14 16:01] LABS: Alanine Aminotransferase 30 U/L (12-78); Albumin Level 4.4 g/dl (3.5-5.0); Albumin/Globulin Ratio 1.5 (1.1-1.8); Alkaline Phosphatase 91 U/L (38-126); Anion Gap 11.7 mEq/L (5-15); Aspartate Amino Transferase 21 U/L (17-59); Bilirubin,Total 0.7 mg/dl (0.2-1.3); Blood Urea Nitrogen 6 mg/dl (9-20); Calcium 9.3 mg/dl (8.4-10.2); Carbon Dioxide 25 mmol/L (22.0-30.0); Chloride 98 mmol/L (98-107); Creatinine Clearance Estimated 166 mL/min (50-200); Estimated Glomerular Filt Rate 118 ml/min (>60); GFR (African American) 143 ML/MIN (>60); Globulin 2.9 g/dL (1.3-3.2); Glucose 134 mg/dl (74-100); Potassium 3.7 mmoL/L (3.5-5.1); Sodium 131 mmol/L (136-145); Total Protein,Serum 7.3 g/dl (6.3-8.2)
[2025-03-14] MEDS: ASPIRIN 81MG CHEWABLE TABLET 324 MG PO (16:02)
[2025-03-14 16:07] LABS: D-Dimer 0.81 ug/mL (0.0-0.5)
[2025-03-14 16:16] LABS: Troponin I < 0.01 ng/ml (0.00-0.034)
--- NOTE | 2025-03-14 16:19 | CT_ITS ---
PROCEDURE INFORMATION: Exam: CTA Chest With Contrast Exam date and time: 03/14/2025 4:45 PM Age: 54 years old Clinical indication: Abnormal findings; Abnormal diagnostic tests; Elevated d-dimer; Additional info: Cough SOA + dimer TECHNIQUE: Imaging protocol: Computed tomographic angiography of the chest with contrast. Exam focused on the arteries. 3D rendering (Not supervised by radiologist): MIP and/or 3D reconstructed images were created by the technologist. Radiation optimization: All CT scans at this facility use at least one of these dose optimization techniques: automated exposure control; mA and/or kV adjustment per patient size (includes targeted exams where dose is matched to clinical indication); or iterative reconstruction. Contrast material: ISOVUE 370; Contrast volume: 70 ml; Contrast route: INTRAVENOUS (IV); COMPARISON: CT ANGIO CHEST PE PROTOCOL 05/28/2022 10:18 AM FINDINGS: Pulmonary arteries: Normal. No pulmonary emboli. Aorta: Unremarkable. No aortic aneurysm. No aortic dissection. Lungs: Mild paraseptal emphysema in the right lung apex. Diffuse patchy and centrilobular consolidations throughout the left lung, worse in the left lower lobe where there are more confluence consolidations present. Additionally, there is bronchial wall thickening throughout the left lung. Pleural spaces: Unremarkable. No pneumothorax. No pleural effusion. Heart: Unremarkable. No cardiomegaly. No pericardial effusion. Coronary arteries: Possible stent in the LAD versus calcification. Consider correlation with surgical history. Lymph nodes: 1.2 cm prominent mediastinal lymph node (series 7, image 41). Diaphragm: Large hiatal hernia. Bones/joints: Minimal degenerative changes of the thoracic spine. Soft tissues: Unremarkable. IMPRESSION: 1. 1.2 cm prominent mediastinal lymph node (series 7, image 41). Likely reactive. 2. Diffuse left lung pneumonia, worse in the left lung base, with associated bronchitis. 3. No pulmonary emboli. COMMENTS: The presence of pulmonary emphysema on CT is an independent risk factor for lung cancer. In the absence of a history or active diagnosis of lung cancer, it is recommended that this patient with emphysema be evaluated for enrollment in a low dose CT lung cancer screening program.
--- NOTE | 2025-03-14 16:38 | PC.NURSE ---
Pt is out of room gone to RAD.
[2025-03-14] MEDS: 0.9 % SODIUM CHLORIDE 50 ML VIAL IV (16:45)
[2025-03-14] MEDS: SODIUM CHLORIDE 0.9% 10ML SYR (RAD ONLY) 10 ML IV (16:45)
[2025-03-14] MEDS: IOPAMIDOL-370 (76%);100ML BOTTLE 70 ML IV (16:45)
[2025-03-14] MEDS: AMOXICILLIN/CLAVULANATE POTASSIUM 875/125MG TABLET 1 EACH PO (17:39)
== END 2025-03-14 18:25 | disposition home or self-care (01) ==
PROVIDERS: Nurse Practitioner; Emergency Provider Student in an Organized Health Care Education/Training Program
DX: R07.89 Other chest pain (principal); J18.9 Pneumonia, unspecified organism; R00.0 Tachycardia, unspecified; E87.1 Hypo-osmolality and hyponatremia; R59.0 Localized enlarged lymph nodes
CPT/HCPCS: 71045; 71275; 80053; 83880; 84484; 85025; 85378; 93005; 99285; Q9967

== ENCOUNTER 2025-04-06 09:35 | Outpatient (CLI) | payer MEDICARE, SELFPAY ==
[2025-04-06 17:57] LABS: Adenovirus F 40/41, stool Not Detected (NotDetected); Astrovirus Not Detected (NotDetected); Campylobacter Not Detected (NotDetected); Clostridium Difficile A/B, PCR Not Detected (NotDetected); Cryptosporidium Not Detected (NotDetected); Cyclospora Cayetanesis Not Detected (NotDetected); Entamoeba histolytica Not Detected (NotDetected); Enteroaggregative E coli Not Detected (NotDetected); Enteropathogenic E coli Not Detected (NotDetected); Enterotoxigenic E coli Not Detected (NotDetected); Giardia lamblia Not Detected (NotDetected); Norovirus Not Detected (NotDetected); Plesimonas Shigalloides, PCR Not Detected (NotDetected); Rotavirus A Not Detected (NotDetected); Salmonella, PCR Not Detected (NotDetected); Sapovirus Not Detected (NotDetected); Shiga-like toxin E coli Not Detected (NotDetected); Shigella Enterovasive E coli Not Detected (NotDetected); Vibrio Cholerae Not Detected (NotDetected); Vibrio, PCR Not Detected (NotDetected); Yersinia Entercolitica, PCR Not Detected (NotDetected)
[2025-04-06 19:20] LABS: Alanine Aminotransferase 29 U/L (12-78); Albumin Level 4.4 g/dl (3.5-5.0); Albumin/Globulin Ratio 1.9 (1.1-1.8); Alkaline Phosphatase 133 U/L (38-126); Anion Gap 15.3 mEq/L (5-15); Aspartate Amino Transferase 25 U/L (17-59); Bilirubin,Total 0.5 mg/dl (0.2-1.3); Blood Urea Nitrogen 10 mg/dl (9-20); Calcium 8.7 mg/dl (8.4-10.2); Carbon Dioxide 21 mmol/L (22.0-30.0); Chloride 99 mmol/L (98-107); Estimated Glomerular Filt Rate 118 ml/min (>60); GFR (African American) 143 ML/MIN (>60); Globulin 2.3 g/dL (1.3-3.2); Glucose 109 mg/dl (74-100); Potassium 4.3 mmoL/L (3.5-5.1); Sodium 131 mmol/L (136-145); Total Protein,Serum 6.7 g/dl (6.3-8.2)
[2025-04-06 20:09] LABS: Hepatitis C Ab Qual. W/ RFX NEGATIVE (Negative)
[2025-04-06 21:19] LABS: HIV Combo NEGATIVE (Negative)
[2025-04-08 11:38] LABS: Testosterone,Total 456 ng/dL (264-916)
== END 2025-04-06 23:59 | disposition home or self-care (01) ==
LOC: LAB.DROPOF 04-08 09:36
PROVIDERS: PCP Family Medicine; Visit Provider Family Medicine
DX: I10 Essential (primary) hypertension (principal); R19.7 Diarrhea, unspecified; R53.83 Other fatigue
CPT/HCPCS: 80053; 84403; 86803; 87389; 87507

== ENCOUNTER 2025-09-16 07:03 | Outpatient (CLI) | payer MEDICARE, SELFPAY ==
--- OUTSIDE RECORDS SUMMARY | 2025-09-16 07:05 | XMS_ITS | Data Portability ---
Author Organization formerly [facility] Address [address] [place] [address] Care Team Providers Care Message And Delivery Service Pricer Name Role Phone DANA CM [employer] [phone] Assessment Encounter Date Assessment Date Assessment LastModified by Organization Details LastModified Time 03/25/2025 03/25/2025 Will call with lab results when available. Call office with questions or concerns. RTO for new or worsening symptoms. [email or web address] Not available 03/25/2025 12:31:00 Plan of Treatment Reminders Order Date Submit Date Provider Last Modified By Organization Details Last Modified Time Details Appointments None recorded . Lab CBC w/ auto diff 2024 025 [place] [facility], [address], Antonio F, [place], [address], 07:50:33 CMP, serum or plasma 2024 025 [place] [facility], [address], Antonio F, [place], [address], 5 07:50:33 Referral None recorded . Procedures None recorded . Surgeries None recorded . Imaging XR, chest 2024 025 [facility], [address] [place], [address], 11:54:08 CT, chest, w/o contrast 2024 025 [facility], [address] [place] [address], [address], 5 14:03:18 electroc ardiogra m [email or web address] [place] [address], [address] [place] [address], [place], [address], 5 07:42:30 Medication Orders bupivaca ine (PF) 0.75 % (7.5 mg/mL) injectio n solution 2024 025 [email or web address] [facility], [address] [place] [address], [place], [address], 5 13:25:44 triamcin olone acetonid e 40 mg/mL suspensi on for injectio n 2024 025 [facility], [address] [place] [address], [place], [address], 5 09:14:22 ketorola c 60 mg/2 mL intramus cular solution 2024 025 [email or web address] [facility], [address] [place] [address], [place], [address], 5 13:33:45 Solu-Med rol (PF) 125 mg/2 mL solution for injectio n 2024 025 [email or web address] Not available 5 13:44:18 ceftriax one 1 gram solution for injectio n 2024 025 [email or web address] Not available 5 13:33:20 azithrom ycin 500 mg tablet 2024 025 [email or web address] [facility], [address] [place] [address], [place], [address], 5 10:40:19 predniso ne 20 mg tablet 2024 025 [facility], [address] [facility], [place], [address], 09:11:05 Patient TargetsNo targets recorded. Patient Instructions Encounter Date Encounter Id Patient Instructions Last Modified By Organization Details Last Modified Time 05/16/2025 [id number] smoking cessatio n counseling, greater than 3 minutes up to 10 minutes* Not available 05/16/2025 09:11:55 body mass index: care instructions Not available 05/16/2025 10:55:17 learning about healthy weight Not available 05/16/2025 10:55:17 Advised to take medication as directed Will call with results of imaging once available Encouraged to follow heart healthy lifestyle - low fat diet and aim for 30 minutes per day of physical exercise. To call office for questions, concerns or issues Not available 05/16/2025 09:31:40 Reason for Referral None Reported. Results Created Date Observation Date Name Description Value Unit Range Abnormal Flag Note LastModifiedBy Organization Detail LastModifiedTime 03/25/20 25 03/26/2025 CBC WITH DIFFE RENTI AL/PL ATELE T WBC 7.8 x10e3 /uL 3.4-10 .8 normal Not Available [facility] ([facility]) [address] [place], [address], 03/26/2025 07:50:33 03/25/2003/26/2025 CBC WITH DIFFE RENTI AL/PL ATELE T RBC 4.32 x10e6 /uL 4.14-5 .80 normal Not Available [facility] ([facility]) [address] [place], [address], 03/26/2025 07:50:33 03/25/20 25 03/26/2025 CBC WITH DIFFE RENTI AL/PL ATELE T hemoglobin 13.6 g/dL 13.0-1 7.7 normal Not Available [facility] ([facility]) [address] [place], [address], 03/26/2025 07:50:33 03/25/20 25 03/26/2025 CBC WITH DIFFE RENTI AL/PL ATELE T hematocrit 40.3 % 37.5-5 1.0 normal Not Available [facility] ([facility]) [address] [facility], [place], [address], 03/26/2025 07:50:33 03/25/2003/26/2025 CBC WITH DIFFE RENTI AL/PL ATELE T MCV 93 fL 79-97 normal Not Available [facility] ([facility]) [address] [place], [address], 03/26/2025 07:50:33 03/25/20 25 03/26/2025 CBC WITH DIFFE RENTI AL/PL ATELE T MCH 31.5 pg 26.6-3 3.0 normal Not Available [facility] ([facility]) [address] [place], [address], 03/26/2025 07:50:33 03/25/20 25 03/26/2025 CBC WITH DIFFE RENTI AL/PL ATELE T MCHC 33.7 g/dL 31.5-3 5.7 normal Not Available [facility] ([facility]) [address] [place], [address], 03/26/2025 07:50:33 03/25/2003/26/2025 CBC WITH DIFFE RENTI AL/PL ATELE T RDW 12.9 % 11.6-1 5.4 Not Available [facility] ([facility]) [address] [place], [address], 03/26/2025 07:50:33 03/25/2003/26/2025 CBC WITH DIFFE RENTI AL/PL ATELE T platelets 567 x10e3 /uL 150-45 0 above high normal Not Available [facility] ([facility]) [address] [place], [address], 03/26/2025 07:50:33 03/25/20 25 03/26/2025 CBC WITH DIFFE RENTI AL/PL ATELE T neutrophils 62 % not estab. normal Not Available [facility] ([facility]) [address] [facility], [place], [address], 03/26/2025 07:50:33 03/25/20 25 03/26/2025 CBC WITH DIFFE RENTI AL/PL ATELE T lymphs 23 % not estab. normal Not Available [facility] ([facility]) [address] [facility], [place], [address], 03/26/2025 07:50:33 03/25/20 25 03/26/2025 CBC WITH DIFFE RENTI AL/PL ATELE T monocytes 13 % not estab. normal Not Available [facility] ([facility]) [address] [place], [address], 03/26/2025 07:50:33 03/25/20 25 03/26/2025 CBC WITH DIFFE RENTI AL/PL ATELE T eos 0 % not estab. normal Not Available [facility] ([facility]) [address] [facility], [place], [address], 03/26/2025 07:50:33 03/25/20 25 03/26/2025 CBC WITH DIFFE RENTI AL/PL ATELE T basos 1 % not estab. normal Not Available [facility] ([facility]) [address] [facility], [place], [address], 03/26/2025 07:50:33 03/25/20 25 03/26/2025 CBC WITH DIFFE RENTI AL/PL ATELE T immature cells CLINICAL SERVICES PROFESSIONAL Not Available [facility] ([facility]) [address] [place], [address], 03/26/2025 07:50:33 03/25/20 25 03/26/2025 CBC WITH DIFFE RENTI AL/PL ATELE T neutrophils (absolute) 4.9 x10e3 /uL 1.4-7. 0 normal Not Available [facility] ([facility]) [address] [place], [address], 03/26/2025 07:50:33 03/25/20 25 03/26/2025 CBC WITH DIFFE RENTI AL/PL ATELE T lymphs (absolute) 1.8 x10e3 /uL 0.7-3. 1 normal Not Available [facility] ([facility]) [address] [facility], [place], [address], 03/26/2025 07:50:33 03/25/2003/26/2025 CBC WITH DIFFE RENTI AL/PL ATELE T monocytes(ab solute) 1.0 x10e3 /uL 0.1-0. 9 above high normal Not Available [facility] ([facility]) [address] [place], [address], 03/26/2025 07:50:33 03/25/20 25 03/26/2025 CBC WITH DIFFE RENTI AL/PL ATELE T eos (absolute) 0.0 x10e3 /uL 0.0-0. 4 normal Not Available [facility] ([facility]) [address] [place], [address], 03/26/2025 07:50:33 03/25/20 25 03/26/2025 CBC WITH DIFFE RENTI AL/PL ATELE T baso (absolute) 0.0 x10e3 /uL 0.0-0. 2 normal Not Available [facility] ([facility]) [address] [place], [address], 03/26/2025 07:50:33 03/25/20 25 03/26/2025 CBC WITH DIFFE RENTI AL/PL ATELE T immature granulocytes 1 % not estab. Not Available [facility] ([facility]) [address] [place], [address], 03/26/2025 07:50:33 03/25/20 25 03/26/2025 CBC WITH DIFFE RENTI AL/PL ATELE T immature grans (abs) 0.0 x10e3 /uL 0.0-0. 1 Not Available [facility] ([facility]) [address] [facility], [place], [address], 03/26/2025 07:50:33 03/25/20 25 03/26/2025 CBC WITH DIFFE RENTI AL/PL ATELE T NRBC CLINICAL SERVICES PROFESSIONAL Not Available [facility] ([facility]) [address] [facility], [place], [address], 03/26/2025 07:50:33 03/25/20 25 03/26/2025 CBC WITH DIFFE RENTI AL/PL ATELE T hematology comments: CLINICAL SERVICES PROFESSIONAL Not Available [facility] ([facility]) [address] [facility], [place], [address], 03/26/2025 07:50:33 03/25/20 25 03/26/2025 COMP. METAB OLIC PANEL (14) glucose 90 mg/dL 70-99 normal Not Available [facility] ([facility]) [address] [facility], [place], [address], 03/26/2025 07:50:33 03/25/20 25 03/26/2025 COMP. METAB OLIC PANEL (14) BUN 9 mg/dL 6-24 normal Not Available [facility] ([facility]) [address] [facility], [place], [address], 03/26/2025 07:50:33 03/25/20 25 03/26/2025 COMP. METAB OLIC PANEL (14) creatinine 0.73 mg/dL 0.76-1 .27 below low normal Not Available [facility] ([facility]) [address] [facility], [place], [address], 03/26/2025 07:50:33 03/25/20 25 03/26/2025 COMP. METAB OLIC PANEL (14) eGFR 109 mL/mi n/1.7 3 >59 normal Not Available [facility] ([facility]) [address] [place], [address], 03/26/2025 07:50:33 03/25/20 25 03/26/2025 COMP. METAB OLIC PANEL (14) BUN/creatini ne ratio 12 9-20 normal Not Available [facility] ([facility]) [address] [place], [address], 03/26/2025 07:50:33 03/25/20 25 03/26/2025 COMP. METAB OLIC PANEL (14) sodium 131 mmol/ L 134-14 4 below low normal Not Available [facility] ([facility]) [address] [place], [address], 03/26/2025 07:50:33 03/25/20 25 03/26/2025 COMP. METAB OLIC PANEL (14) potassium 3.9 mmol/ L 3.5-5. 2 normal Not Available [facility] ([facility]) [address] [place], [address], 03/26/2025 07:50:33 03/25/20 25 03/26/2025 COMP. METAB OLIC PANEL (14) chloride 92 mmol/ L 96-106 below low normal Not Available [facility] ([facility]) [address] [place], [address], 03/26/2025 07:50:33 03/25/20 25 03/26/2025 COMP. METAB OLIC PANEL (14) carbon dioxide, total 22 mmol/ L 20-29 normal Not Available [facility] ([facility]) [address] [place], [address], 03/26/2025 07:50:33 03/25/20 25 03/26/2025 COMP. METAB OLIC PANEL (14) calcium 9.3 mg/dL 8.7-10 .2 normal Not Available [facility] ([facility]) [address] [place], [address], 03/26/2025 07:50:33 03/25/20 25 03/26/2025 COMP. METAB OLIC PANEL (14) protein, total 6.6 g/dL 6.0-8. 5 normal Not Available [facility] ([facility]) [address] [place], [address], 03/26/2025 07:50:33 03/25/20 25 03/26/2025 COMP. METAB OLIC PANEL (14) albumin 4.5 g/dL 3.8-4. 9 normal Not Available [facility] ([facility]) [address] [place], [address], 03/26/2025 07:50:33 03/25/20 25 03/26/2025 COMP. METAB OLIC PANEL (14) globulin, total 2.1 g/dL 1.5-4. 5 Not Available [facility] ([facility]) [address] [place], [address], 03/26/2025 07:50:33 03/25/20 25 03/26/2025 COMP. METAB OLIC PANEL (14) bilirubin, total 0.4 mg/dL 0.0-1. 2 normal Not Available [facility] ([facility]) [address] [place], [address], 03/26/2025 07:50:33 03/25/20 25 03/26/2025 COMP. METAB OLIC PANEL (14) alkaline phosphatase 138 IU/L 44-121 above high normal Not Available [facility] ([facility]) [address] [place], [address], 03/26/2025 07:50:33 03/25/20 25 03/26/2025 COMP. METAB OLIC PANEL (14) AST (SGOT) 14 IU/L 0-40 normal Not Available [facility] ([facility]) [address] [facility], [place], [address], 03/26/2025 07:50:33 03/25/20 25 03/26/2025 COMP. METAB OLIC PANEL (14) ALT (SGPT) 27 IU/L 0-44 normal Not Available [facility] ([facility]) [address] [facility], [place], [address], 03/26/2025 07:50:33 01/27/20 25 01/20/2025 XR, lumba r spine , 2 view No observ ation record ed. Not Available 2024 08:02:22 01/27/20 25 01/20/2025 XR, cervi she spine , 4 or 5 view No observ ation record ed. [email or web address] Not Available 2024 08:02:22 03/14/20 25 03/14/2025 elect rocar diogr am No observ ation record ed. [email or web address] [facility] [address] [place], [address], 03/14/2025 16:12:24 03/14/20 25 elect rocar diogr am No observ ation record ed. [email or web address] [facility] [address] [address] [place], [address], 03/15/2025 07:26:23 04/14/20 CT, chest , w/o contr ast No observ ation record ed. [email or web address] [address], [place], [address], 04/15/2025 16:11:11 05/16/20 25 05/16/2025 XR, chest No observ ation record ed. [facility] [address] [facility] [address] [place], [address], 05/16/2025 13:49:51 Result Notes None recorded. Problems Name Problem SNOMED Code Status Onset Date Resolution Date Notes Provider Name and Address Organization Details Recorded Time Suspecte d COVID-19 440048728 Completed 07/17/2021 Removal Reason: Problem added by user [email or web address] from the COVID-19 watch flag Silvana Tolbert null, [place] - [facility] 1 14:03:40 Hyperlip idemia 65837394 Active 2016 Cha Satya null, [place] - [facility] 7 13:29:52 Hyperten sive disorder 48342963 Active 2016 Cha Satya null, [place] - [facility] 7 13:29:58 Acid reflux 621202086 Active 2016 Cha Satya [place], [place] [facility] 7 13:30:06 Hiatal hernia 33569838 Active 2016 Beatrice Guerrero null, [place] - [facility] 7 13:58:30 Nicotine dependen ce 11033281 Active 2017 Lilo Espinosa null, [place] - [facility] 8 15:41:18 Osteoart hritis of knee 934685188 Active 2017 Antony Tao MD [address], [place], [address] , [place] - [facility] 8 16:30:05 Upper respirat ory infectio n 85923487 Completed 201709/18/2018 Annette Ena null, [place] - [facility] 8 12:54:04 Chronic back pain 416003705 Active 2019 Antony Tao MD [address], [place], [address] , [place] [facility] 0 13:46:24 Degenera tion of lumbar interver tebral disc 58053387 Active 2019 Antony Tao MD [address], [place], [address] , [place] - [facility] 0 11:48:59 Headache 10453236 Completed 202001/20/2023 Annette Mathias RN [address], [place], [address] , [place] - [facility] 3 09:19:08 Insect bite - wound 172576148 Completed 202012/05/2021 Antony Tao MD [address], [place], [address] , [place] [facility] 2 17:03:40 Cellulit is 675107049 Completed 202012/05/2021 Antony Tao MD [address], [place], [address] , [place] [facility] 2 17:03:14 Chest pain 61125735 Completed 202101/20/2023 Michael Carpenter, ADDICTION TREATMENT COUNSELOR [address], [place], [address] , [place] [facility] 5 13:41:05 Spasm of back muscles 911433572 Active 2023 Tj Muniz MD [address], [place], [address] , [place] [facility] 4 09:39:30 Chest pain 64138542 Active 2024 Michael Carpenter, ADDICTION TREATMENT COUNSELOR [address], [place], [address] , [place] [facility] 5 13:41:05 Hyponatr emia 40596000 Active 2024 Sherrie Velazquez, ADDICTION TREATMENT COUNSELOR [address], [place], [address] , [place] [facility] 5 11:04:44 Hematocr it - PCV level - finding 568283291 Active 2024 Sherrie Velazquez APRN [address], [place], [address] , [place] [facility] 5 11:05:15 Pneumoni a 330995048 Active 2024 Sherrie Velazquez APRN [address], [place], [address] , [place] [facility] 5 12:28:14 Mediasti nal lymphade nopathy 09299963 Active 2024 Sherrie Velazquez APRN [address], [place], [address] , [place] [facility] 5 12:31:00 Alkaline phosphat ase above referenc e range 592886924 Active 2024 Sherrie Velazquez, ADDICTION TREATMENT COUNSELOR [address], [place], [address] , [place] - [facility] 5 13:02:45 Platelet count above referenc e range 331917956 Active 2024 Sherrie Velazquez, ADDICTION TREATMENT COUNSELOR [address], [place], [address] , [place] - [facility] 5 13:03:15 CT of chest abnormal 72886904831 314073 Active 2024 Allison Karina, ADDICTION TREATMENT COUNSELOR [address], [place], [place], [address] , [place] - [facility] 5 09:30:26 Problem Notes None recorded. Procedures Surgical History Date Name Laterality Status Provider Name and Address Organization Details Recorded Time 03/25 Medication Reconcilliation completed Humza Menjivar [place] - [facility] 5 10:39:25 01/28 Joint Injection completed Tj Muniz MD [address], [place], [address] , [place] - [facility] 5 14:05:56 12/21 Joint Injection completed Tj Muniz MD [address], [place], [address] , [place] - [facility] 5 18:08:41 09/02 Joint Injection completed Tj Muniz MD [address], [place], [address] , [place] - [facility] 4 12:10:57 05/23 Medication Reconcilliation completed Sukhi Ames [place] - [facility] 2 13:27:44 08/16 Systolic B/P less than 130 mm Hg completed Alyssa Multani [place] - [facility] 0 14:54:06 08/16 Diastolic B/P 80-89 mm Hg completed Alyssa Multani [place] [facility] 0 14:54:08 07/14 Systolic B/P less than 130 mm Hg completed Alyssa Multani [place] [facility] 0 16:11:35 07/14 Diastolic B/P 80-89 mm Hg completed Alyssa Multani [place] [facility] 0 16:11:38 05/31 Systolic B/P less than 130 mm Hg completed Alyssa Multani [place] [facility] 0 15:25:50 05/31 Diastolic B/P 80-89 mm Hg completed Alyssa Multani [place] [facility] 0 15:25:52 02/09 Systolic B/P less than 130 mm Hg completed Alyssa Multani [place] [facility] 0 09:28:58 02/09 Diastolic B/P 80-89 mm Hg completed Alyssa Multani [place] [facility] 0 09:29:01 07/13 esophagogastroduodenoscopy completed [email or web address] on Snedegar [place] - [facility] 2 10:49:17 06/10 Stress test completed Tessy Figgins [place] [facility] 3 15:13:14 11/18 colonoscopy completed Anson Coxedegar [place] - [facility] 2 10:48:40 04/09 Corticosteroid Injection completed Lilo Espinosa [place] [facility] 8 14:44:03 05/10 Hernia Repair completed Tessy Figboones [place] - [facility] 3 15:13:14 11/17 Cardiac Cath completed Beatricealeshia Guerrero [place] - [facility] 7 13:52:01 Hernia Repair completed Cha Hernadez [place] - [facility] 7 13:32:14 Imaging Results None recorded. Procedure Notes None recorded. Medical Equipment None Reported. Allergies Allergen ID Allergen Name Allergen Category Reaction Reaction Severity Criticality Documentation Date Start Date Code Code System Note Provider Name and Address Organization Details Recorded Time 82171 Substance with sulfonami de structure and antibacte rial mechanism of action (substanc e) medicatio n hives Not available Not available 01/05/2018 10763 8003 SNOMED Beatrice Yolanda null, [place] - [facility] 8 14:42:06 Medications Name Sig Start Date Stop Date Status Note LastModified by Organization Details LastModified Time Prescript ion - Renewal 05/24 completed Not Available Not Available Not Available Prescript ion - New 05/24 completed Not Available Not Available Not Available cyclobenz aprine 10 mg tablet Take 1 tablet 3 times a day by oral route. 12/02 completed Not Available Not Available Not Available amoxicill in 500 mg capsule 03/01 completed Not Available Not Available Not Available atorvasta tin 40 mg tablet TAKE 1 TABLET EVERY DAY 2024 active Not Available Not Available Not Avai lable methocarb liliya 500 mg tablet 01/21 completed Not Available Not Available Not Available carvedilo l 6.25 mg tablet TAKE 1 TABLET EVERY DAY 2024 active Not Available Not Available Not Avai lable gabapenti n 600 mg tablet 03/07 completed Not Available Not Available Not Available doxycycli ne hyclate 100 mg capsule Take 1 capsule twice a day by oral route as directed for 10 days. 09/28 completed Not Available Not Available Not Available carvedilo l 12.5 mg tablet Take 1 tablet every day by oral route for 30 days. 11/26 completed Not Available Not Available Not Available ropinirol e 1 mg tablet Take 1 tablet every day by oral route at bedtime. 11/26 completed Not Available Not Available Not Available tizanidin e 2 mg tablet Take 1 tablet every day by oral route at dinner for 90 days. 03/14 completed Not Available Not Available Not Available lisinopri l 20 mg-hydroc hlorothia zide 12.5 mg tablet take 2 tablets by oral route once daily 02/28 completed lisinopr il-hydro chloroth iazide 20-12.5 mg oral tablet;P rescribe Status: Prescrib ed on: 09/02/20 13 7:02AM;U ser: [email or web address] ;Est. Completi on: 02/29/20 14;Pharm acyVerif ied: 09/02/20 13 7:02AM Not Available Not Available Not Available ibuprofen 800 mg tablet Take 1 tablet 3 times a day by oral route as needed. 06/24 completed Not Available Not Available Not Available tizanidin e 4 mg tablet TAKE ONE (1) TABLET THREE (3) TIMES A DAY BY ORAL ROUTE AFTER MEAL(S) active Not Available Not Available No t Available albuterol sulfate 1.25 mg/3 mL solution for nebulizat ion Inhale 3 mL by inhalati on route. 02/09 completed Not Available Not Available Not Available hydrocodo ne 5 mg-acetam inophen 325 mg tablet TAKE ONE TABLET BY MOUTH THREE TIMES DAILY active Not Available Not Available No t Available Celestone Soluspan 6 mg/mL suspensio n for injection Take 9 mg by injectio n route. 05/29 completed Not Available Not Available Not Available meloxicam 15 mg tablet Take 1 tablet every day by oral route for 30 days. 11/02 completed Not Available Not Available Not Available lisinopri l 20 mg tablet take 1 tablet by oral route QD 07/27 completed lisinopr il 20 mg oral tablet;R ecorded Status: Recorded on: 07/17/20 10 11:00AM; Disconti nued Status: Disconti nued on: 07/27/20 10 8:59AM;U ser: [email or web address];E st. Completi on: 08/16/20 10;Indic ation: Hyperten mekhi - (07.4019 00) Not Available Not Available Not Available prednison e 20 mg tablet TAKE 3 TABLETS BY MOUTH EVERY DAY FOR 3 DAYS THEN TAKE 2 TABLETS EVERY DAY FOR 3 DAYS THEN TAKE 1 TABLET EVERY DAY FOR 3 DAYS. THEN STOP. 05/16 completed Not Available Not Available Not Available clobetaso l 0.05 % topical cream 07/27 completed Not Available Not Available Not Available Zithromax Z-Jony 250 mg tablet TAKE 2 TABLETS (500 MG) BY ORAL ROUTE ONCE DAILY FOR 1 DAY THEN 1 TABLET (250 MG) BY ORAL ROUTE ONCE DAILY FOR 4 DAYS 09/18 completed Not Available Not Available Not Available promethaz ine 6.25 mg-codein e 10 mg/5 mL syrup Take 5 mL every 6 hours by oral route after meal(s) for 7 days. 03/14 completed Not Available Not Available Not Available penicilli n V potassium 500 mg tablet 05/24 completed Not Available Not Available Not Available metronida zole 500 mg tablet TAKE 1 TABLET BY MOUTH EVERY EIGHT (8) HOURS 05/13 completed Not Available Not Available Not Available acetamino phen 300 mg-codein e 30 mg tablet TAKE ONE (1) TABLET THREE (3) TIMES A DAY BY ORAL ROUTE AFTER MEAL(S) FOR 14 DAYS. 03/14 completed Not Available Not Available Not Available prochlorp erazine maleate 10 mg tablet TAKE ONE (1) TABLET THREE (3) TIMES A DAY BY ORAL ROUTE AFTER MEALS FOR 7 DAYS. 12/02 completed Not Available Not Available Not Available ciproflox acin 500 mg tablet Take 1 tablet twice a day by oral route as directed . 10/30 completed Not Available Not Available Not Available sulfameth oxazole 800 mg-trimet hoprim 160 mg tablet TAKE ONE (1) TABLET EVERY 12 HOURS BY ORAL ROUTE FOR 10 DAYS. 03/14 completed Not Available Not Available Not Available omeprazol e 40 mg capsule,d elayed release TAKE 1 CAPSULE EVERY DAY 2024 active Not Available Not Available Not Avai lable aspirin 81 mg tablet,de layed release TAKE 1 TABLET BY MOUTH EVERY DAY active Not Available Not Available No t Available tramadol 50 mg tablet Take 1 tablet 3 times a day by oral route as needed. 08/17 completed Not Available Not Available Not Available triamcino lone acetonide 0.1 % topical cream APPLY A THIN LAYER TO THE AFFECTED AREA(S) BY TOPICAL ROUTE TWO (2) TIMES PER DAY active Not Available Not Available No t Available butalbita l-acetami nophen-ca ffeine 50 mg-325 mg-40 mg tablet TAKE 1 TABLET EVERY 4 HOURS BY ORAL ROUTE DIRECTED . 12/05 completed Not Available Not Available Not Available amoxicill in 500 mg tablet Take 1 tablet 3 times a day by oral route. 03/01 completed Not Available Not Available Not Available ondansetr on 8 mg disintegr ating tablet 04/09 completed Not Available Not Available Not Available Depo-Medr ol 80 mg/mL suspensio n for injection Take 1 mL by injectio n route. 02/09 completed Not Available Not Available Not Available ketorolac 10 mg tablet TAKE ONE (1) TABLET EVERY SIX (6) HOURS BY ORAL ROUTE AFTER MEAL(S) FOR FIVE (5) DAYS. 03/14 completed Not Available Not Available Not Available prednison e 10 mg tablets in a dose pack Take as directed 04/25 completed Not Available Not Available Not Available Celebrex 200 mg capsule Take 1 capsule every day by oral route as directed for 30 days. 03/07 completed Not Available Not Available Not Available meloxicam 7.5 mg tablet 12/05 completed Not Available Not Available Not Available alprazola m 0.5 mg tablet 03/07 completed Not Available Not Available Not Available ceftriaxo ne 1 gram solution for injection Take 1 g by injectio n route. 03/14 completed Not Available Not Available Not Available alprazola m 0.25 mg tablet Take 1 tablet 3 times a day by oral route. 06/07 completed Not Available Not Available Not Available methocarb liliay 750 mg tablet Take 1 tablet every day by oral route for 8 days. 04/25 completed Not Available Not Available Not Available betametha sone valerate 0.1 % topical cream apply a thin layer to the affected area(s) by topical route 2 times per day for 30 days 09/19 completed betameth asone valerate 0.1 % topical cream;Re corded Status: Recorded on: 04/12/20 11 10:43AM; Disconti nued Status: Disconti nued on: 09/19/20 11 4:40PM;U ser: [email or web address] ;Est. Completi on: 10/09/20 11;Indic ation: Disorder of Skin - (12.7099 00);Prin jose: 04/12/20 11 Not Available Not Available Not Available amlodipin e 10 mg tablet TAKE 1 TABLET EVERY DAY DIRECTED 2024 active Not Available Not Available Not Avai lable promethaz ine-pheny lephrine- codeine 6.25 mg-5 mg-10 mg/5 mL oral syrup Take 5 mL every 4 hours by oral route. 12/08 completed Not Available Not Available Not Available triamcino lone acetonide 40 mg/mL suspensio n for injection Take 1 mL by injectio n route. 05/16 completed Not Available Not Available Not Available cephalexi n 500 mg capsule Take 1 capsule twice a day by oral route for 10 days. 12/05 completed Not Available Not Available Not Available nystatin 100,000 unit/gram topical cream apply to the affected area(s) by topical route 2 times per day for 30 days 09/19 completed nystatin 100,000 unit/gra m topical cream;Re corded Status: Recorded on: 04/12/20 11 10:43AM; Disconti nued Status: Disconti nued on: 09/19/20 11 4:40PM;U ser: [email or web address] ;Est. Completi on: 10/09/20 11;Print ed: 04/12/20 11 Not Available Not Available Not Available ranitidin e 150 mg tablet Take 1 tablet every day by oral route at bedtime. 06/08 completed Not Available Not Available Not Available buspirone 10 mg tablet TAKE 1 TABLET THREE TIMES DAILY active Not Available Not Available No t Available clotrimaz ole-betam ethasone 1 %-0.05 % topical cream APPLY TWICE DAILY 03/14 completed Not Available Not Available Not Available Oralia-D 12 Hour 60 mg-120 mg tablet,ex tended release Take 1 tablet twice a day by oral route. 05/29 completed Not Available Not Available Not Available lisinopri l 10 mg tablet one po qd 03/01 completed Not Available Not Available Not Available ibuprofen 400 mg tablet TAKE 1 TABLET 3 TIMES A DAY BY ORAL ROUTE NEEDED. 12/02 completed Not Available Not Available Not Available nitroglyc angela 0.4 mg sublingua l tablet Place 1 tablet by sublingu al route as needed. active Not Available Not Available No t Available lisinopri l 30 mg tablet take 1 tablet (30 mg) by oral route daily for 30 days 04/12 completed lisinopr il 30 mg oral tablet;R ecorded Status: Recorded on: 04/12/20 11 10:44AM; Disconti nued Status: Disconti nued on: 04/12/20 11 10:45AM; User: [email or web address] Murphy on: 10/09/20 11 Not Available Not Available Not Available gabapenti n 300 mg capsule TAKE ONE CAPSULE BY MOUTH THREE TIMES DAILY active Not Available Not Available No t Available omeprazol e 20 mg capsule,d elayed release Take 1 capsule every day by oral route for 90 days. 05/29 completed Not Available Not Available Not Available lisinopri l 20 mg-hydroc hlorothia zide 25 mg tablet TAKE 1 TABLET EVERY DAY 2024 active Not Available Not Available Not Avai lable diclofena c sodium 75 mg tablet,de layed release TAKE 1 TABLET(S ) TWICE A DAY BY ORAL ROUTE. 05/29 completed Not Available Not Available Not Available hydroxyzi ne HCl 25 mg tablet Take 1 tablet 3 times a day by oral route as needed. 04/25 completed Not Available Not Available Not Available diclofena c sodium 50 mg tablet,de layed release 04/26 completed Not Available Not Available Not Available ergocalci ferol (vitamin D2) 1,250 mcg (50,000 unit) capsule TAKE 1 CAPSULE (50,000 UNIT) BY ORAL ROUTE ONCE WEEKLY FOR 30 DAYS 12/02 completed Not Available Not Available Not Available lisinopri l 10 mg-hydroc hlorothia zide 12.5 mg tablet TAKE 1 TABLET EVERY DAY BY ORAL ROUTE. 12/02 completed Not Available Not Available Not Available prednison e 5 mg tablets in a dose pack Take as directed 12/02 completed Not Available Not Available Not Available ibuprofen 600 mg tablet TAKE ONE (1) TABLET THREE (3) TIMES A DAY BY ORAL ROUTE AFTER MEALS FOR 10 DAYS. 12/02 completed Not Available Not Available Not Available methylpre dnisolone 4 mg tablets in a dose pack take as directed for 7 days 09/14 completed Not Available Not Available Not Available albuterol sulfate HFA 90 mcg/actua tion aerosol inhaler INHALE 2 PUFFS BY MOUTH EVERY 4 HOURS active Not Available Not Available No t Available ketorolac 60 mg/2 mL intramusc ular solution Inject 2 mL by intramus cular route. 03/14 completed Not Available Not Available Not Available lisinopri l 40 mg tablet take 1 tablet (40 mg) by oral route once daily for 30 days 07/15 completed lisinopr il 40 mg oral tablet;R ecorded Status: Recorded on: 04/12/20 11 10:45AM; Disconti nued Status: Disconti nued on: 07/15/20 11 9:10AM;U ser: [email or web address] ;Est. Completi on: 10/09/20 11;Print ed: 04/12/20 11 Not Available Not Available Not Available ondansetr on 4 mg disintegr ating tablet TAKE 1 TABLET ORALLY EVERY 8 HOURS NEEDED FOR NAUSEA AND VOMITING 03/14 completed Not Available Not Available Not Available ipratropi um bromide 0.02 % solution for inhalatio n Inhale 2.5 mL by inhalati on route. 02/09 completed Not Available Not Available Not Available naproxen 500 mg tablet 12/02 completed Not Available Not Available Not Available amoxicill in 875 mg-potass ium clavulana te 125 mg tablet TAKE 1 TABLET BY MOUTH TWICE DAILY FOR 10 DAYS 03/25 completed Not Available Not Available Not Available oxycodone 5 mg tablet 04/25 completed Not Available Not Available Not Available azithromy kathy 500 mg tablet TAKE 1 TABLET BY MOUTH EVERY DAY FOR 5 DAYS 03/25 completed Not Available Not Available Not Available bupivacai ne (PF) 0.75 % (7.5 mg/mL) injection solution Take 7 mL by injectio n route. 03/14 completed Not Available Not Available Not Available rosuvasta tin 40 mg tablet 12/02 completed Not Available Not Available Not Available tadalafil 20 mg tablet TAKE ONE (1) TABLET EVERY DAY BY ORAL ROUTE NEEDED FOR 30 DAYS. active Not Available Not Available No t Available metoprolo l tartrate 25 mg tablet take 1 tablet (25 mg) by oral route 2 times per day for 30 days 10/25 completed metoprol ol tartrate 25 mg oral tablet;P rescribe Status: Prescrib ed on: 07/27/20 13 8:16AM;U ser: [email or web address] ;Est. Completi on: 10/25/20 13;Indic ation: Hyperten mekhi - (07.4019 00);Alvin Swanson fied: 07/27/20 13 8:16AM Not Available Not Available Not Available TriLyte With Flavor Packets 420 gram oral solution 11/26 completed Not Available Not Available Not Available Fioricet one every four hours as needed 12/05 completed Not Available Not Available Not Available hydrocodo ne 5 mg-acetam inophen 300 mg tablet TAKE ONE TABLET BY MOUTH THREE TIMES DAILY 03/14 completed Not Available Not Available Not Available Symbicort 160 mcg-4.5 mcg/actua tion HFA aerosol inhaler 07/01 completed Not Available Not Available Not Available diclofena c 1 % topical gel APPLY TO AFFECTED AREA TWICE DAILY NEEDED active Not Available Not Available No t Available prasugrel HCl 10 mg tablet TAKE 1 TABLET BY MOUTH EVERY DAY active Not Available Not Available No t Available Solu-Medr ol (PF) 125 mg/2 mL solution for injection Take 125 mg by injectio n route. 03/14 completed Not Available Not Available Not Available naloxone 4 mg/actuat ion nasal spray active Not Available Not Available Not Available clotrimaz ole 1 %-betamet hasone 0.05 % cream-zin c ox 20 % paste topical Apply twice daily 2023 active Not Available Not Available Not Avai lable Vitals Date Recorded Body height Body temperature Heart rate Oxygen saturation Oxygen saturation in Arterial blood by Pulse oximetry Respiratory rate Systolic And Diastolic Provider Name and Address Organization Details Last Updated DateTime 5 182.88 cm 97.8 [degF] 88 /min 97 % 97 % 18 /min 122/70 mm[Hg] Nicole Dewey [place] - [facility] 5 16:13:09 Date Recorded Body height Body mass index (BMI) Body weight Oxygen saturation Oxygen saturation in Arterial blood by Pulse oximetry Body temperature Heart rate Respiratory rate Pain severity - 0-10 verbal numeric rating [Score] - Reported Systolic And Diastolic Provider Name and Address Organization Details Last Updated DateTime 5 182.88 cm 29.7 kg/m2 18058.7 3 g 97 % 97 % 97.7 [degF] 97 /min 18 /min 7 120/78 mm[Hg] Nicole Dewey [place] - [facility] 5 12:58:39 Date Recorded Body height Body mass index (BMI) Body weight Heart rate Body temperature Oxygen saturation Oxygen saturation in Arterial blood by Pulse oximetry Respiratory rate Systolic And Diastolic Provider Name and Address Organization Details Last Updated DateTime 5 182.88 cm 29.1 kg/m2 83578.5 7 g 98 /min 97.8 [degF] 97 % 97 % 18 /min 140/82 mm[Hg] Nicole Dewey [place] - [facility] 5 13:24:55 Date Recorded Body height Body mass index (BMI) Body weight Body temperature Heart rate Oxygen saturation Oxygen saturation in Arterial blood by Pulse oximetry Respiratory rate Pain severity - 0-10 verbal numeric rating [Score] - Reported Systolic And Diastolic Provider Name and Address Organization Details Last Updated DateTime 5 182.88 cm 28.9 kg/m2 93535.5 7 g 97.7 [degF] 78 /min 97 % 97 % 18 /min 0 110/72 mm[Hg] Allison Otto [place] - [facility] 5 10:39:20 Date Recorded Body height Body mass index (BMI) Body weight Heart rate Oxygen saturation Oxygen saturation in Arterial blood by Pulse oximetry Respiratory rate Pain severity - 0-10 verbal numeric rating [Score] - Reported Systolic And Diastolic Provider Name and Address Organization Details Last Updated DateTime 5 182.88 cm 29.2 kg/m2 92114.3 6 g 74 /min 96 % 96 % 18 /min 0 102/70 mm[Hg] Annette Sutherland [place] - [facility] 5 09:17:28 Social History Question Answer Notes LastModified by Organizat ion Details LastModified Time Tobacco Smoking Status Current Every Day Smoker Tessy mac [place] - [facility] 01/22/2024 13:25:00 Do You Have An Advance Directive? No [email or web address] Information not available 03/11/2017 Are You Blind Or Do You Have Difficulty Seeing? No Information not available 07/24/2023 Is Blood Transfusion Acceptable In An Emergency? Yes Information not available 07/24/2023 What Is Your Level Of Caffeine Consumption? Moderate [email or web address] Information not available 03/11/2017 How Much Tobacco Do You Chew? None Information not available 03/11/2017 Are You Deaf Or Do You Have Serious Difficulty Hearing? No [email or web address] Information not available 03/11/2017 What Type Of Diet Are You Following? REGULAR Information not available 07/24/2023 Which Illicit Or Recreational Drugs Have You Used? None Information not available 03/11/2017 What Is The Highest Grade Or Level Of School You Have Completed Or The Highest Degree You Have Received? [id number] Information not available 07/24/2023 Swimming/diving Yes Informati on not available 07/24/2023 Hard Of Hearing Or Deaf In One Or Both Ears? No Information not available 07/24/2023 Legally Blind In One Or Both Eyes? No Information no t available 07/24/2023 Live Alone Or With Others? With Others Information not available 07/24/2023 What Was The Date Of Your Most Recent Tobacco Screening? 05/16/2025 Information not available 05/16/2025 How Many Children Do You Have? 2 Information not available 07/24/2023 What Is Your Current Pack Years? [email or web address] Information not available 12/02/2023 What Is Your Relationship Status? Information not available 03/11/2017 Do You Use Your Seat Belt Or Car Seat Routinely? Yes Information not available 07/24/2023 Seat Belts Used Routinely Yes Information not available 07/24/2023 Are You Sexually Active? Yes Information not available 07/24/2023 Smoke Alarm In Home Yes Information not available 07/24/2023 Do You Have Smoke And Carbon Monoxide Detectors In Your Home? Yes Information not available 07/24/2023 At What Age Did You Start Smoking Tobacco? 20 [email or web address] Information not available 02/10/2020 Are You Passively Exposed To Smoke? Yes [email or web address] Information no t available 03/11/2017 How Much Tobacco Do You Smoke? 0.25 PPD [email or web address] Information not available 07/27/2024 General Stress Level Medium Information not available 07/24/2023 Do You Use Sunscreen Routinely? Yes [email or web address] Information not available 03/11/2017 Has Tobacco Cessation Counseling Been Provided? Yes Information not available 05/16/2025 On What Date Was Tobacco Cessation Counseling Provided? 05/16/2025 Information not available 05/16/2025 How Many Years Have You Smoked Tobacco? 33 Information not available 12/02/2023 Do You Have Difficulty Walking Or Climbing Stairs? No Information not available 07/24/2023 Sex: Male Functional Status Question Answer Note LastModified by Organizat ion Details LastModified Time Do you use any illicit or recreational drugs? No [email or web address] Information not available 04/25/2022 Do you or have you ever used any other forms of tobacco or nicotine? No Information not available 07/24/2023 What is your level of alcohol consumption? Occasional [email or web address] Information not available 03/11/2017 Do you or have you ever used smokeless tobacco? Never used smokeless tobacco [email or web address] Information not available 02/10/2020 Are you currently employed? No Information not available 07/24/2023 Are you able to walk independently without assistance or assistive devices? [email or web address] Information not available 07/24/2023 Do you have difficulty doing errands alone? No Information not available 07/24/2023 Are you able to care for yourself independently? 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 No Information not available 07/24/2023 Do you or have you ever used e-cigarettes or vape? Never used electronic cigarettes [email or web address] Information not available 02/10/2020 What is your exercise level? Occasional [email or web address] Information not available 03/11/2017 Mental Status Question Answer Note LastModified by Organization D etails LastModified Time Do you have difficulty concentrating, remembering or making decisions? No Information no t available 07/24/2023 Family History Relationship Description Onset Age of this Age Resolved Age Notes LastModified by Organization Details LastModified Time Father Heart disease Not available 2022 15:13:11 Unspecified Relation Hypertensive disorder Not available 2022 15:13:11 Medical History Condition Response Anxiety Disorder Y Arthritis Y Acid Reflux (GERD) Y Hyperlipidemia Y Depression Y Asthma Y Hypertension Y Immunizations Vaccine Type Date Status Note Provider Nam e and Address Organization Details Recorded Time influenza, unspecified formulation 2 completed Not Available [facility] 12/02/2023 09:48:22 Tdap 0 completed Not Available [facility] 12/02/2023 09:48:22 Tdap 3 completed Antony Tao MD [facility], [place], [address], [place] - [facility] 05/29/2023 09:30:18 Td (adult), 2 Lf tetanus toxoid, preservative free, adsorbed 7 completed Crystale Marcos null, [place] - [facility] 10/22/2022 15:09:46 Influenza, split virus, quadrivalent, PF 2 completed Crystale Marcos null, [place] - [facility] 10/22/2022 15:09:46 COVID-19, mRNA, LNP-S, PF, 30 mcg/0.3 mL dose 1 completed Crystale Marcos null, [place] - [facility] 10/22/2022 15:09:46 Influenza, split virus, trivalent, PF 2 completed Crystale Marcos null, [place] - [facility] 10/22/2022 15:09:46 COVID-19, mRNA, LNP-S, PF, 30 mcg/0.3 mL dose 1 completed Crystale Marcos null, [place] - [facility] 10/22/2022 15:09:46 Past Encounters Encounter ID Performer Location Encounter Start Date Encounter Closed Date Diagnosis/Indication Diagnosis SNOMED-CT Code Diagnosis ICD10 Code Diagnosis IMO Codes Diagnosis Note [id number] Beatrice Guerrero APRN [facility] [address] [place] [address] 03/11/2017 13:21:51 03/11/2017 14:37:17 Body mass index 25-29 - overweight 417591873 Z68.29 Chest pain 16518564 R07. 9 Hypertensive disorder 38 442404 I10 Hyperlipidemia 13335206 E78.5 Cough 18859720 R05 Fatigue 64879759 R53.83 [id number] Beatrice Guerrero [address] [place] [address] 12/29/2017 16:16:58 12/29/2017 16:48:41 Body mass index 25-29 - overweight 322534391 Z68.27 Hiatal hernia 71023220 K 44.9 Acid reflux 867809528 K2 1.9 Hypertensive disorder 38 612714 I10 Hyperlipidemia 73109149 E78.5 Cellulitis of foot 55929 6007 L03.811 [id number] Beatrice Guerrero [address] [place] [address] 01/05/2018 13:52:41 01/05/2018 14:53:09 Headache 84324676 R51 Cellulitis of foot 98085 6007 L03.497 [id number] Beatrice Guerrero [address] [place] [address] 01/22/2018 16:14:56 01/22/2018 17:40:14 Pain of joint 62659418 M25.50 Cellulitis of foot 32819 6007 L03.119 Hypertensive disorder 38 220036 I10 [id number] Antony Tao MD [address] [place] [address] 04/09/2018 13:22:20 04/09/2018 15:49:11 Body mass index 25-29 - overweight 584891627 Z68.27 Overweight 775077177 E66 .3 Osteoarthr itis of knee 860884286 M17.0 Hypertensive disorder 38 364415 I10 Hyperlipidemia 31056477 E78.5 Bilateral knee pain 1187 587492 6961521 M25.561 M25.562 Low back pain 912350949 M54.5 [id number] Antony Tao MD [address] [address] 06/24/2018 14:45:20 06/24/2018 16:59:32 Nicotine dependence 60187474 F17.200 Bilateral knee pain 1187 663907 1533683 M25.561 M25.562 Hypertensive disorder 38 917413 I10 Hyperlipidemia 16449278 E78.5 Osteoarthr itis of knee 181671868 M17.0 Low back pain 386457788 M54.5 [id number] Antony Tao MD [address] [place] [address] 07/22/2018 10:37:45 07/22/2018 11:47:22 Body mass index 25-29 - overweight 882574540 Z68.27 Overweight 049846317 E66 .3 Upper resp iratory infection 34077609 J06.9 Osteoarthr itis of knee 990770976 M17.0 [id number] Antony Tao MD [address] [place] [address] 09/17/2018 14:23:55 09/17/2018 16:11:59 Increased frequency of urination 256463447 R35.0 Prostatitis 9956768 N41. 9 Osteoarthr itis of knee 222156850 M17.0 Hypertensive disorder 38 451751 I10 Hyperlipidemia 46587547 E78.5 Acid reflux 802130205 K2 1.9 [id number] Antony Tao MD [address] [place] [address] 10/30/2018 15:24:57 10/30/2018 17:14:19 Low back pain 610334972 M54.5 Constipation 62246929 K5 9.00 Osteoarthr itis of knee 891769315 M17.0 Hypertensive disorder 38 824762 I10 Hyperlipidemia 19285965 E78.5 Acid reflux 976937904 K2 1.9 Hiatal hernia 31708616 K 44.9 [id number] Beatrice Guerrero APRN [address] [place] [address] 04/26/2019 14:57:35 04/26/2019 15:59:28 Cellulitis of lower limb 033732517 L03.119 Costal chondritis 415207 04 M94.0 Cramp in lower limb 4499 25635 R25.2 Restless l egs syndrome 62646769 G25.81 Acid reflux 764010078 K2 1.9 [id number] Beatrice Guerrero [address] [place] [address] 06/01/2019 14:19:00 06/01/2019 15:10:17 Hypertensive disorder 13888254 I10 Eczema 14295161 L30.9 Acid reflux 207820190 K2 1.9 [id number] Anotny Tao MD [address] [place] [address] 11/26/2019 08:11:20 11/26/2019 10:13:53 Hypertensive disorder 40030367 I10 Upper resp iratory infection 97965640 J06.9 [id number] Nilda Honorio [address] [place] [address] 12/08/2019 10:10:28 12/08/2019 11:49:49 Cough 34124730 R05 Upper resp iratory infection 89018415 J06.9 [id number] Antony Tao MD [address] [place] [address] 02/10/2020 09:17:29 02/10/2020 16:33:03 Body mass index 25-29 - overweight 078641395 Z68.27 Hand pain 45732192 M79.6 41 Pain in right knee 11849 22767 56288 M25.561 Primary er ectile dysfunction 827862770 N52.9 Acid reflux 203323506 K2 1.9 Hyperlipidemia 42848891 E78.5 Hypertensive disorder 38 927082 I10 Osteoarthr itis of knee 179823885 M17.0 Chronic back pain 685406 002 G89.29 [id number] Antony Tao MD [address] [place] [address] 05/31/2020 15:12:13 05/31/2020 16:59:14 Chronic back pain 228110904 G89.29 Low back pain 618355000 M54.5 Hyperlipidemia 91321871 E78.5 Hypertensive disorder 38 413020 I10 Nicotine dependence 5629 4008 F17.200 Osteoarthr itis of knee 979449786 M17.0 Lumbar radiculopathy 128 298949 M54.16 [id number] Antony Tao MD [address] [place] [address] 07/14/2020 15:55:14 07/14/2020 17:04:08 Chronic back pain 225394146 G89.29 Osteoarthr itis of knee 340157756 M17.0 Hypertensive disorder 38 860247 I10 Hyperlipidemia 93664294 E78.5 [id number] Antony Tao MD [address] [place] [address] 08/16/2020 14:14:53 08/16/2020 16:57:16 Chronic back pain 638223528 G89.29 Hyperlipidemia 34319545 E78.5 Hypertensive disorder 38 517651 I10 Nicotine dependence 5629 4008 F17.200 Degenerati on of lumbar intervertebral disc 69952490 M51.36 [id number] Antony Tao MD [address] [place] [address] 05/18/2021 14:47:08 05/18/2021 17:08:58 Degeneration of lumbar intervertebral disc 49339152 M51.36 Chronic back pain 398333 002 G89.29 Osteoarthr itis of knee 498129087 M17.0 Nicotine dependence 5629 4008 F17.200 Hypertensive disorder 38 635049 I10 Hyperlipidemia 33170634 E78.5 Acid reflux 144460010 K2 1.9 Hiatal hernia 96547935 K 44.9 Headache 60789009 R51.9 [id number] Antony Tao MD [address] [place] [address] 06/28/2021 11:14:47 06/28/2021 11:48:01 Headache 46871737 R51.9 Nicotine dependence 5629 4008 F17.200 Chronic back pain 329292 002 G89.29 Bilateral knee pain 1187 998004 2985692 M25.561 M25.562 Degenerati on of lumbar intervertebral disc 94728692 M51.36 Osteoarthr itis of knee 648615510 M17.0 Erectile dysfunction 860 394484 F52.21 Hyperlipidemia 75706163 E78.5 Hypertensive disorder 38 797901 I10 [id number] Nilda OlmedoBON [address] [address] 07/17/2021 09:30:17 07/17/2021 10:25:06 Viral screening 854592726 Z11.52 Upper resp iratory infection 15324047 J06.9 [id number] Antony Tao MD [address] [place] [address] 09/14/2021 13:14:45 09/14/2021 16:39:20 Skin lesion 84007016 L98.9 Wound of skin 045839292 T14.8XXA Chronic back pain 302273 002 G89.29 Degenerati on of lumbar intervertebral disc 37730244 M51.36 Hyperlipidemia 41559051 E78.5 Hypertensive disorder 38 181637 I10 Cellulitis 854532717 L03 .90 [id number] Antony Tao MD [address] [place] [address] 09/28/2021 13:43:02 09/28/2021 15:54:36 Cellulitis 768488502 L03.90 Insect bite - wound 2764 98559 T14.8XXD Itching of skin 99097905 0 L29.9 Chronic back pain 054390 002 G89.29 Degenerati on of lumbar intervertebral disc 53601999 M51.36 Hyperlipidemia 97658261 E78.5 Osteoarthr itis of knee 589460091 M17.0 [id number] Antony Tao MD [address] [place] [address] 12/05/2021 14:08:35 12/05/2021 16:20:34 Headache 26309728 R51.9 Degenerati on of lumbar intervertebral disc 74065152 M51.36 Chronic back pain 812766 002 G89.29 Pruritic rash 38322299 L 28.2 Acid reflux 980420294 K2 1.9 Hyperlipidemia 11111710 E78.5 Hypertensive disorder 38 372340 I10 Osteoarthr itis of knee 957307664 M17.0 [id number] Antony Tao MD [address] [address] 01/03/2022 14:50:51 01/03/2022 17:13:59 Headache 47161767 R51.9 Degenerati on of lumbar intervertebral disc 68995514 M51.36 Chronic back pain 594048 002 G89.29 Osteoarthr itis of knee 931479997 M17.0 Hypertensive disorder 38 391858 I10 Nicotine dependence 5629 4008 F17.200 Hyperlipidemia 10719435 E78.5 Acid reflux 291822443 K2 1.9 Fatigue 18733165 R53.83 Hiatal hernia 40641481 K 44.9 [id number] Antony Tao MD [address] [address] 01/11/2022 14:55:30 01/11/2022 16:43:00 Headache 55093265 R51.9 Degenerati on of lumbar intervertebral disc 10828022 M51.36 Chronic back pain 762398 002 G89.29 Osteoarthr itis of knee 891314149 M17.0 Nasal congestion 3072143 0 R09.81 Body mass index 25-29 - overweight 575668274 Z68.27 Vitamin D deficiency 347 07689 E55.9 [id number] Antony Tao MD [address] [address] 03/01/2022 11:05:16 03/01/2022 13:05:35 Chronic back pain 273669979 G89.29 Hyperlipidemia 18086959 E78.5 Hypertensive disorder 38 350237 I10 Degenerati on of lumbar intervertebral disc 95327079 M51.36 [id number] Antony Tao MD [address] [place] [address] 03/07/2022 08:38:49 03/07/2022 09:27:49 Chronic back pain 787965675 G89.29 Degenerati on of lumbar intervertebral disc 57816979 M51.36 Hyperlipidemia 30905226 E78.5 Hypertensive disorder 38 266954 I10 [id number] Antony Tao MD [address] [place] [address] 04/25/2022 09:34:07 04/25/2022 11:11:08 Degeneration of lumbar intervertebral disc 91339341 M51.36 Headache 67904956 R51.9 Chronic back pain 424602 002 G89.29 Osteoarthr itis of knee 195248172 M17.0 Nicotine dependence 5629 4008 F17.200 Hypertensive disorder 38 063600 I10 Hyperlipidemia 12483013 E78.5 Acid reflux 242234083 K2 1.9 Anxiety 93156274 F41.9 Mild depression 52222878 3 F32.0 Abnormal gait 56146399 R 26.9 handicappe d form completed for patient today, see copy in chart [id number] Antony Tao MD [address] [place] [address] 05/23/2022 13:06:31 05/23/2022 14:50:07 Chest pain 64677365 R07.9 Hypertensive disorder 38 289271 I10 Dizziness 350175806 R42 Chronic back pain 452292 002 G89.29 Aftercare 737968856 Z51. 89 Acid reflux 072440740 K2 1.9 Hyperlipidemia 04644441 E78.5 [id number] Antony Tao MD [address] [place] [address] 06/07/2022 09:34:25 06/07/2022 11:23:56 Body mass index 25-29 - overweight 418082403 Z68.27 27.1 Headache 14711833 R51.9 Degenerati on of lumbar intervertebral disc 43235792 M51.36 Chronic back pain 224557 002 G89.29 Anxiety 59052414 F41.9 [id number] Tj Muniz MD [address] [place] [address] 10/22/2022 14:44:48 10/22/2022 16:19:18 Acute laryngitis 0556847 J04.0 [id number] Antony Tao MD [facility] [address] [place], [place] [address] [place] [address] 01/31/2023 09:23:49 01/31/2023 11:41:57 General examination of patient 949641112 Z00.00 Screening for malignant neoplasm of prostate 975531222 Z12.5 Endocrine/ metabolic screening 494249969 Z13.228 Exercises education, guidance, and counseling 603049787 Z71.82 The patient was advised to continue a healthy diet and exercise regularly. Dietary ma nagement surveillance 659026624 Z71.3 Hyperlipidemia 86074173 E78.5 Hypertensive disorder 38 279791 I10 Chronic back pain 090958 002 G89.29 [id number] Antony Tao MD [address] [address] 02/20/2023 14:06:23 02/21/2023 14:32:49 Chronic hoarseness 7164866446 105 R49.0 [id number] Antony Tao MD [address] [place] [address] 05/29/2023 08:43:58 05/29/2023 09:19:01 General examination of patient 884093161 Z00.00 Hyperlipid emia screening 112364895 Z13.220 Screening for malignant neoplasm of prostate 890178229 Z12.5 Endocrine/ metabolic screening 072440114 Z13.228 Exercises education, guidance, and counseling 431122409 Z71.82 The patient was advised to continue a healthy diet and exercise regularly. Dietary ma nagement surveillance 000498567 Z71.3 Administra tion of diphtheria, pertussis, and tetanus vaccine 137914479 Z23 Body mass index 25-29 - overweight 732347607 Z68.28 28.1 Overweight 905100214 E66 .3 Tobacco user 870059401 Z 72.0 Hyperlipidemia 40176210 E78.5 Hypertensive disorder 38 406289 I10 Acid reflux 245142315 K2 1.9 Chronic back pain 078274 002 G89.29 [id number] Tj Muniz MD [address] [place] [address] 07/24/2023 14:56:29 07/24/2023 15:22:28 Nausea and vomiting 84517832 R11.2 [id number] Tj Muniz MD [address] [place] [address] 11/18/2023 10:56:34 11/18/2023 11:40:15 Upper respiratory infection 58752448 J06.9 [id number] Tj Muniz MD [address] [place] [address] 12/02/2023 09:46:30 12/02/2023 10:27:43 Hypertensive disorder 89984062 I10 Chronic, Stable at this time; no changes to current regimen. Follow up as below. Anxiety 98543779 F41.9 Chronic, Stable at this time; no changes to current regimen. Follow up as below. Acid reflux 505155776 K2 1.9 Chronic, Stable at this time; no changes to current regimen. Follow up as below. Essential hypertension 16321255 I10 Chronic, Stable at this time; no changes to current regimen. Follow up as below. Hyperlipidemia 70987494 E78.5 Chronic, Stable at this time; no changes to current regimen. Follow up as below. [id number] Tj Muniz MD [address] [place] [address] 01/22/2024 13:10:23 01/22/2024 13:44:19 Body mass index 25-29 - overweight 189074649 Z68.28 Overweight 484204246 E66 .3 Viral screening 44248880 4 Z11.59 Upper resp iratory infection 25882912 J06.9 Erectile dysfunction 860 165165 F52.21 [id number] Tj Muniz MD [address] [place] [address] 07/01/2024 10:49:38 07/01/2024 11:18:43 Essential hypertension 71359876 I10 Chronic, Stable at this time; no changes to current regimen. Follow up as below. Hypertensive disorder 38 561871 I10 Chronic, Stable at this time; no changes to current regimen. Follow up as below. Body mass index 30+ - obesity 188254089 Z68.30 Obesity 979017793 E66.9 [id number] Tj Muniz MD [address] [place] [address] 07/27/2024 13:10:36 07/27/2024 14:14:24 Body mass index 25-29 - overweight 160787029 Z68.27 Tinea corporis 63810948 B35.4 Plaque psoriasis 6884238 09 L40.0 [id number] Tj Muniz MD [address] [place] [address] 08/31/2024 08:53:24 08/31/2024 09:20:47 Pain in bilateral legs 5721740618 8969449 M79.604 M79.605 Pt will schedule for injection Hypertensive disorder 38 368566 I10 Chronic, Stable at this time; no changes to current regimen. Follow up as below. Hyperlipidemia 36379190 E78.5 Chronic, Stable at this time; no changes to current regimen. Follow up as below. [id number] Tj Muniz MD [address] [place] [address] 09/02/2024 09:16:20 09/02/2024 09:31:41 Pain of right knee joint 8559391797 27371 M25.267 [id number] Tj Muniz MD [address] [place] [address] 11/15/2024 14:58:23 11/15/2024 15:36:04 Upper respiratory infection 17917655 J06.9 Screening for malignant neoplasm of colon 151595687 Z12.11 [id number] Tj Muniz MD [address] [place] [address] 12/21/2024 16:29:55 12/21/2024 17:04:34 Pain of left knee joint 6297866850 50905 M25.562 Erectile dysfunction 860 304433 F52.21 refill requested [id number] Tj Muniz MD [address] [place] [address] 01/10/2025 15:54:43 01/10/2025 16:24:25 Spasm of back muscles 638220863 M62.830 refill requested Pain of le ft knee joint 9207864389 51648 M25.885 [id number] Tj Muniz MD [address] [place] [address] 01/18/2025 15:55:11 01/18/2025 16:25:01 Upper respiratory infection 82653975 J06.9 [id number] Tj Muniz MD [address] [place] [address] 01/28/2025 12:51:44 01/28/2025 13:13:25 Pain of left knee joint 5105697460 64326 M25.731 [id number] Michael Carpenter APRN [address] [place] [address] 03/14/2025 13:19:02 03/15/2025 07:42:30 Chest pain 71407190 R07.9 R06.00 47320767 PE noted with flushed face, mild labored breathing, respiratio ns 22, mild accessory use and mild push of speech during visit. Patient reporting symptoms are similar to episode of chest pain he experience d in 2023 and required cardiac stents. He did report episode of hemoptysis 3-4 days ago as well. EKG is SR and appears similar to 2021 EKG he had previously , no acute findings. Contacted Dr. Cm office patient's cardiologi st and spoke with nurse, and was recommende d that he go to ER. Patient advised by this provider to go to ER at this time and recommende d ambulance transport but he refused. Also recommende d he have family member pick him up here and he refused, states he was going to his daughter in [place] who will take him on to ER. He reports that he plans on going to [facility] where Dr. Cm practices, advised again the nearest ER is in [facility]. Patient is high risk for cardiovasc ular compromise . Patient agreeable to go to ER. F/U as needed. [id number] Sherrie Velazquez [facility] [address] [place], [place] [address] [place] [address] 03/25/2025 10:11:57 03/25/2025 11:13:45 Pneum[address]19 J18.[address] of chest completed at [facility]. Results reviewed. Diffuse left lung pneumonia noted.Will plan for f/u chest CT in 2 weeks to evaluate for resolution . Seen in department 86018 1009 Z76.89 [id number] Hyponatremia 67618912 E8 7.1 [id number] Emergency room lab results reviewed. Sodium of 131 noted Hematocrit - PCV level - finding 329505029 D64.9 [id number] Emergency room lab results reviewed. Hematocrit of 39.9 noted Mediastina l lymphadenopathy 77794826 R59.[address] of chest completed at [facility]. Results reviewed. 1.2 cm prominent mediastina l lymph node noted.Will plan for f/u chest CT in 2 weeks to evaluate for resolution . [id number] Allison Collins [place] [address] [place] [address] 05/16/2025 09:03:07 05/16/2025 09:38:35 Nicotine dependence 04826364 F17.200 89944315 Pneumonia 047712128 J18. 9 770085347 Overweight 932128174 E66 .3 Overweight in adulthood with body mass index of 25 or more but less than [address] of chest abnormal 268 3768923 5353072 R93.89 [id number] Health Concerns Section Related Observation LastModified by Organization Detai ls LastModified Time None Recorded Concern Status LastModified by Organization Details LastModified Time None Recorded Advance Directives Directive N: Payers Insurance Date Sequence Insurance Name Policy Number Policy Collado Covered Member ID Collado Member ID Guarantor Name 05/13/2025 1 [facility] (MEDICAID REPLACEMENT - HMO) Antony Narayanan [id number] Antony Narayanan 08/13/2023 2 MEDICAID-[facility] - FFS/TRADITIONA L Antony Narayanan [id number] Antony Narayanan 05/13/2025 [place] [facility] [place] Antony Narayanan [id number] Antony Narayanan 08/03/2025 [employer] (MEDICARE REPLACEMENT/AD VANTAGE - PPO) Antony Narayanan [id number] Antony Narayanan 08/13/2023 1 [facility] [id number] Antony Narayanan [id number] Antony Narayanan 08/13/2023 2 [facility] (PPO) [id number] Antony Amanda Lady [id number] Antony Narayanan 08/13/2023 1 [facility] ([place] [id number] Antony Narayanan [id number] Antony Narayanan 03/18/2022 1 UNSPECIFIED REMIT PAYOR Antony Narayanan 08/13/2023 2 [employer] (PPO) Antony Narayanan [id number] Antony Narayanan Notes Date Note Type Note Provider Name and Address Organization Details Recorded Time 5 text/html ROS as noted in the HPI Pt presents for 3 weeks of worsening cough (mostly dry, occasionally productive of mistry sputum, no hemoptysis), associated congestion and sore throat. Pt endorses subjective fevers and chills, intermittent wheezing and SoB but denies arthralgias, diarrhea, rashes, lymphadenopathy. Pt is a smoker. States did get Flu and Covid vaccs; endorses multiple sick contacts. Tj Muniz MD [address], [place], [address], [place] [facility] 01/18/2025 17:47:00 5 text/html Pt presents for left knee pain. Pt describes pain as dull and grinding, without radiation, constant with a waxing and waning course, worst in low back and knees, associated swelling with knees, relieved by rest, NSAIDs, warmth. Denies recent imaging. Pt denies F/C, rashes, swelling, no new or worsening focal neurologic deficits. Tj Muniz MD [address], [place], [address], [place] [facility] 02/01/2025 14:06:06 5 text/html ROS as noted in the HPI 54 yo presents with intermittent chest pain started about one week ago. He reports he feels very weak I ain't got no strength whatsoever. He reports that chest pain is on right side of chest and feels dull that comes and goes. He reports he tried to contact Dr. Cm this morning but no returned call. He had stent placed June 2024 and states that symptoms currently are similar to last June. He reports having shortness of breath all the time. He reports he is unable to complete normal activities and today was unable to cut his grass or weedeat. He admits he has been having headaches off and on as well for the last week. He states that about 3-4 days ago he awakened during night and was awakened from reflux. He states he coughed up dark brown/black mucus and then some pink/red mucus after. He denies any n/v, diarrhea. Michael Carpenter, ADDICTION TREATMENT COUNSELOR [address], [place], [address], [place] [facility] 03/14/2025 16:21:11 5 text/html Emergency Department Follow-Up RecordReported by PatientEmergency Room Follow-Up RecordFor discharge information, patient reportsname of hospital/urgent care patient was seen: ([facility]),patient presented to hospital/urgent care on or around: actual date 03/14/25,patient presented to hospital for treatment of: (chest pain and soa),treatment received by hospital/urgent care: (chest x-ray and chest ct completed. prescribed augmentin and azithromycin),patient's condition has: improved, andhospital records available at the time of this visit: yes.Patient reports he completed Augment and azithromycin as prescribed. Patient reports SOA has improved but continues to endorse SOA with exertion.Denies chest pain, fever, cough, headaches, dizziness, syncope, wheezing, and n/v/d.ROS as noted in the HPI Patient presents for emergency room f/u. Sherrie Velazquez, ADDICTION TREATMENT COUNSELOR [address], [place], [address], [place] [facility] 03/25/2025 12:31:19 5 text/html ROS as noted in the HPI Presents for follow up regarding recent CT chestFeeling wellNo chest pain, shortness of breath, dizziness, lightheadedness, syncope, palpitations or edema.No fever, chills or cough.Follows with pain management for gabapentin and opiateCompliant with medicationsSmoking 0.5 pack per weekDenies alcohol and illicit drug usage Allison Collins, ADDICTION TREATMENT COUNSELOR [address], [place], [address], [place] [facility] 07/31/2025 15:19:12
--- NOTE | 2025-09-16 07:30 | CT_ITS ---
FINAL REPORT TECHNIQUE: Axial images were obtained through the chest without contrast. Coronal and sagittal images were obtained and reviewed. This study was performed with techniques to keep radiation doses as low as reasonably achievable, (ALARA). Individualized dose reduction techniques using automated exposure control or adjustment of mA and/or kV according to the patient's size were employed. CLINICAL HISTORY: Nodule COMPARISON: 03/14/2025 CTA chest FINDINGS: There are few small scattered mediastinal lymph nodes. Coronary stent is present. The heart size is normal. There is no pericardial or pleural effusion. There is a moderate hiatal hernia. The previously noted nodular densities predominantly in the left lung have resolved, presumed inflammatory. No suspicious infiltrate or nodule identified. Limited images of the upper abdomen demonstrate no acute findings. IMPRESSION: No acute process. Interval resolution of previously seen nodular densities. Reviewed, Interpreted and Dictated by Duran Larios MD Transcribed by Lluvia Cyr Authenticated and [facility]
[2025-09-16] MEDS: ALBUTEROL 0.083% 2.5 MG/3 ML NEB IH (07:38)
--- NOTE | 2025-09-16 07:39 | PC.NURSE ---
Pre and Post Spirometry completed without incident. Albuterol 0.083% given via HHN, per written protocol, Pt tolerated tx well.
== END 2025-09-16 23:59 | disposition home or self-care (01) ==
PROVIDERS: PCP Family Medicine; Visit Provider Internal Medicine Pulmonary Disease
DX: R91.8 Other nonspecific abnormal finding of lung field (principal); R06.02 Shortness of breath
CPT/HCPCS: 71250; 94010

== ENCOUNTER 2025-10-04 13:47 | Observation (INO) | payer MEDICARE, SELFPAY ==
[2025-10-04] VITALS (24 sets, daily range): BP systolic 100–146; BP diastolic 62–90; PULSE 78–97; RESP 13–23; TEMP 36.1–36.8; O2SAT 91–99; BMI 23.7; BMI 29.5
--- NOTE | 2025-10-04 13:49 | ECG_ITS ---
APPROVED REPORT Exam: Resting ECG HR:80 bpm ECG Measurements Heart Rate 80 AXES NV 164 P 62 QRSd 84 QRS 25 QT 348 T 23 QTc 384 Conclusion SINUS RHYTHM WITH SINUS ARRHYTHMIA NORMAL ECG UNCONFIRMED REPORT Electronically signed by : Antony Nash, 10/04/2025 14:59:40
--- NOTE | 2025-10-04 13:59 | IR_ITS ---
APPROVED REPORT Patient Location: Inpatient PROCEDURES Left heart catheterization Left ventriculogram Selective coronary angiogram Drug-eluting stent deployment to the mid dominant right coronary artery INDICATION Coronary artery disease, Unstable angina Informed consent was obtained prior to the procedure. COMPLICATIONS NONE Estimated Blood Loss: LESS THAN 10 ML TECHNIQUE One percent lidocaine used to anesthetize the right anterior aspect of the wrist. The right radial artery was accessed via the Seldinger technique. A 6 Maltese sheath was placed in the right radial artery. 2.5 mg of Verapamil, 800 mcg of nitroglycerin, 1mg Lidocaine and 5000 U Heparin were given through the arterial sheath. The JL3 catheter was also used to perform left heart catheterization, left ventriculogram and selective coronary angiogram. At the end the diagnostic angiogram therapeutic heparin was administered giving a therapeutic ACT and the guide catheters placed in the right coronary artery followed by Choice PT extra-support wire placed distally. A 3 mm x 38 mm Hallett frontier stent was deployed in the mid right coronary artery at 14 sangeeta reducing the stenosis. A 3 mm x 12 mm noncompliant balloon was deployed at 24 sangeeta in the midportion and then pulled back a half length and then deployed at 24 sangeeta again. This postdilated the stenosis giving excellent angiograph results with LEONARD III flow being present before and after the procedure. At the end the procedure the apparatus was removed the sheath was removed and hemostasis was achieved using TR banding patient was transferred to the postop putting in stable condition ANGIOGRAPHIC RESULTS The left main artery Normal The left anterior descending artery This approximately normal then followed by stent immediately after the first septal manager international which is widely patent with eccentric 20% in-stent restenosis. LEONARD II flow was present down the entire vessel consistent with endothelial dysfunction The circumflex artery Gives rise to a large ramus intermedius which has mild luminal regularities accompanied by LEONARD II flow. The circumflex artery appears codominant has mild luminal regularities also with LEONARD II flow The right coronary artery Is codominant and has concentric 70% mid vessel tandem stenosis The ZAMORA ventriculogram reveals Normal 60% The left ventricular end-diastolic pressure 15 mmHg IMPRESSION Slow flow down the LAD ramus intermedius and circumflex artery consistent with endothelial dysfunction Severe disease in the mid codominant right coronary artery with successful stenting reducing the tandem lesion to 0% with 1 drug-eluting stent Normal ejection fraction Normal LVEDP PLAN 1. Dual antiplatelet therapy 2. Cardiac rehabilitation 3. Avoidance of tobacco products 4. Treatment of endothelial dysfunction 5. Recommend long-acting nitrates and Ranexa 6. LDL less than 55 to be achieved with high intensity statin Electronically signed by : Abiel Cm MD 10/04/2025 19:08:38
--- NOTE | 2025-10-04 14:17 | ED_ITS ---
<Statement entered by Radha Nash MD - 10/05/25 21:50> I was consulted by the LUIS, and we discussed the complexity of the problems being addressed. I approved the treatment and management plan for this patient's care in the emergency department, thus performing a substantive portion of the medical decision making. Radha Nash MD, DRE, FACEP Discharge Plan Disposition Patient Disposition: Admitted Condition: Good Clinical Impressions Clinical Impression: Angina pectoris Coronary artery disease Qualifiers: Coronary Disease-Associated Artery/Lesion type: [place] artery [place] vs. transplanted heart: [place] heart Associated angina: without angina Qualified Code(s): I25.10 - Atherosclerotic heart disease of [place] coronary artery without angina pectoris Discharge ED Provider: Radha Nash General Adult HPI General Chief complaint: Chest Pain Stated complaint: Chest Pain Time Seen by Provider: 10/04/25 14:08 Mode of Arrival: Ambulatory Source of Information: Patient Description of Symptoms (Recalled from ER Triage Doc. by RN): Reports chest pain and shortness of breath that started Friday. States that he was seen in Dr. Cm's office this am and was told to come straight to the Er for further eval, stating he needs a heart cath today. History of Present Illness HPI narrative: 55-year-old male presents the emergency department with a 2 to 3-day history of waxing and waning substernal chest pain, with shortness of breath, patient states that is improved with rest, at maximal on Friday, pain was a 7 or 8 out of 10, currently a 5-6 out of 10, patient states that he woke up last night in the middle of the night and describes being quite diaphoretic and having significant pain, this prompted cardiology visit today. Recreational Therapy Aide office saw and examined the patient today and request to come to the emergency department further evaluation, with possible heart catheterization/intervention today for angina. Patient has any fever or chills, cough congestion sore throat, no nausea no vomiting no constipation no diarrhea no abdominal pain, no urinary symptomatology, patient is a current everyday smoker, admits to occasional alcohol use, denies any drug use, past medical history consistent with hypertension, hyperlipidemia, mediastinal lymphadenopathy, GERD, hypothyroidism, coronary artery disease status post 1 stent placement, COPD. Initial triage vitals are unremarkable. Please note that above description of symptoms, in this electronic medical record under categorization of recalled from ER triage doctor by RN are reflective of an initial nursing assessment, however, is not reflective of my full history and physical exam that was personally taken and clarified. Consequentially, this preceding description of symptoms, which may include the patient's categorized chief complaint in the EMR, do not reflect my personal clinical impression, and the ultimate description of history of present illness and patient stated complaints should be deferred to this section of the note. Unless stated otherwise or congruent with this section of the note, additional signs, symptoms, or incongruence should be interpreted as inaccurate with my clinical impression. Onset (ago): day(s) Related Data Home Medications ?Medication ?Instructions ?Recorded ?Confirmed amlodipine 10 mg tablet 10 mg PO DAILY 05/28/2209/17 gabapentin 300 mg capsule 300 mg PO TID 05/28/2210/04 omeprazole 40 mg capsule,delayed 40 mg PO DAILY 10/04/25 release hydrocodone 5 mg-acetaminophen 325 1 tab PO TID 10/04/25 mg tablet carvedilol 6.25 mg tablet 6.25 mg PO BID 10/04/2509/17 tizanidine 4 mg capsule 4 mg PO Q8HP PRN muscle spas ticity 10/04/25 10/04/25 Previous Rx's ?Medication ?Instructions ?Recorded lisinopril 20 1 tab PO DAILY #90 tabs 05/18 07/08 mg-hydrochlorothiazide 25 mg tablet atorvastatin 40 mg tablet 40 mg PO DAILY #90 tabs 05/19 12/10 bupropion HCl 150 mg 24 hr tablet, 150 mg PO DAILY #90 tabs 06/16/25 extended release (Wellbutrin XL) aspirin 81 mg tablet,delayed 81 mg PO DAILY #90 tabs 0 07/26/25 release (Adult Aspirin Regimen) buspirone 10 mg tablet 10 mg PO TID #90 tabs Allergies Allergy/AdvReac Type Severity Reaction Status Date / Time Sulfa (Sulfonamide AdvReac Intermediate Rash Verified 10/04/25 13:22 Antibiotics) [facility] Disclaimer: The information contained in this section may have been updated after the patient was seen, as this information can be updated by other users. Medical History Encounter for screening for malignant neoplasm of respiratory organs Mediastinal lymphadenopathy Coronary artery disease Angina pectoris Abnormal findings on diagnostic imaging of heart and coronary circulation Lesion of vocal cord Hoarseness Anxiety History of gastroesophageal reflux (GERD) Hypertension Heart attack X2 COPD mixed type Pulmonary emphysema Dyspnea on exertion Smoking greater than 30 pack years Hoarseness of voice Emphysema lung Erectile dysfunction Chest pain Surgical History History of throat surgery H/O heart artery stent History of ear surgery History of hernia surgery Family History Other Asthma COPD (chronic obstructive pulmonary disease) Diabetes Heart attack Hypertension Lung cancer Social History Smoking Status: Current every day smoker alcohol intake: never substance use type: denies use current occupational status: disabled Travel in the last 8 weeks?: None Have you lived/traveled outside US in past 30 days?: No Contact w/someone who lives/traveled outside US past 30 days?: No Exposure to someone with infectious disease in past 14 days?: No Do you have a fever (greater than 100.4 F or 38 C)?: No Have you tested positive for COVID-19?: No Exposed to someone with COVID-19 in past 14 days?: No Do you have a sore throat?: No Do you have a cough?: No Do you have any weakness?: No Do you have any diarrhea?: No Are you experiencing any unusual bleeding?: No Do you have any muscle aches/pain?: No Do you have any abdominal pain?: No Are you experiencing loss of taste or smell?: No Other Medical History Have you received the Flu Vaccine for this season: Yes Have you received the Pneumonia Vaccine: No ROS Obtained: Yes All systems reviewed & no additional complaints except as documented Physical Exam General General appearance: alert and in no apparent distress Head Head exam: atraumatic and normocephalic Eye Eye exam: Present normal appearance, PERRL and EOMI Neck Neck exam: Present full ROM; Absent meningismus Chest Chest inspection: Present normal inspection Respiratory Respiratory exam: Absent respiratory distress, wheezes, stridor, accessory muscle use or prolonged expiratory phase Cardiovascular Cardiovascular exam: Present normal rhythm and other (Pulses equal and symmetric in bilateral upper and lower extremities); Absent tachycardia Abdominal Exam Abdominal exam: Absent distention, tenderness or guarding Extremities Exam Extremities exam: Absent edema Neurological Exam Neurological exam: Present alert Psychiatric Psychiatric exam: Present normal affect Skin Skin exam: Present warm and dry Medical Decision Making Medical Records Medical records reviewed: Yes I reviewed the patient's medical records. Screening: Per USPSTF and CDC recommendations, given the prevalence of disease in our region, it is our hospital?s policy to screen for HIV and viral Hepatitis for all patients aged 18 and over and those with ongoing risk factors. Sid Inquiry Pt receiving controlled substance: Yes Sid was queried for this patient: No Reason not queried -: Emergent pt cond-no time Risks and benefits of using a controlled substance: were discussed with pt by me Vital Signs: 10/04/25 13:50 10/04/25 14:01 10/04/25 14:20 Temperature 98.3 F Temperature Source Oral Pulse Rate Pulse Rate [Radial] 95 H Respiratory Rate 18 13 20 Blood Pressure 119/70 106/86 L Blood Pressure [Left Arm] 130/83 Blood Pressure Mean [Left Arm] 98 Blood Pressure Source Blood Pressure Source [Left Arm] Automatic Cuff Blood Pressure Position Blood Pressure Position [Left Arm] Sitting 02 Sat by Pulse Oximetry 99 Oxygen Delivery Method Room Air 10/04/25 14:30 10/04/25 14:40 10/04/25 14:50 Temperature Temperature Source Pulse Rate Pulse Rate [Radial] Respiratory Rate 13 16 19 Blood Pressure 122/86 110/88 114/80 Blood Pressure [Left Arm] Blood Pressure Mean [Left Arm] Blood Pressure Source Blood Pressure Source [Left Arm] Blood Pressure Position Blood Pressure Position [Left Arm] 02 Sat by Pulse Oximetry Oxygen Delivery Method 10/04/25 15:00 10/04/25 15:10 10/04/25 15:30 Temperature Temperature Source Pulse Rate 95 H Pulse Rate [Radial] Respiratory Rate 23 21 18 Blood Pressure 111/82 126/80 109/71 L Blood Pressure [Left Arm] Blood Pressure Mean [Left Arm] Blood Pressure Source Blood Pressure Source [Left Arm] Blood Pressure Position Blood Pressure Position [Left Arm] 02 Sat by Pulse Oximetry 93 L Oxygen Delivery Method 10/04/25 15:41 Temperature 98.3 F Temperature Source Oral Pulse Rate 95 H Pulse Rate [Radial] Respiratory Rate 18 Blood Pressure 109/71 L Blood Pressure [Left Arm] Blood Pressure Mean [Left Arm] Blood Pressure Source Automatic Cuff Blood Pressure Source [Left Arm] Blood Pressure Position Sitting Blood Pressure Position [Left Arm] 02 Sat by Pulse Oximetry Oxygen Delivery Method Room Air Lab Data Lab results reviewed: Yes I reviewed the patient's lab results. Lab Results 10/04/25 13:54: WBC 7.4, RBC 4.76, Hgb 14.6, Hct 41.8 L, MCV 87.8, MCH 30.7, MCHC 34.9, RDW 13.2, Plt Count 372, MPV 9.4, Neut % (Auto) 64.6, Lymph % (Auto) 19.8, [place] % (Auto) 13.7 H, Eos % (Auto) 1.2, Baso % (Auto) 0.4, Neut # (Auto) 4.8, Lymph # (Auto) 1.5, [place] # (Auto) 1.0, Eos # (Auto) 0.1, Baso # (Auto) 0.0, PT 10.3, INR 0.92, Sodium 136, Potassium 3.5, Chloride 94 L, Carbon Dioxide 29, Anion Gap 16.5 H, BUN 10, Creatinine 0.80, Estimated Creat Clear 120, Estimated GFR 101, Est GFR ( Amer) 122, Glucose 110 H, Calcium 9.2, Magnesium 2.1, Total Bilirubin 0.5, AST 27, ALT 26, Alkaline Phosphatase 106, Troponin I < 0.01, NT-Pro-B Natriuret Pep 24.6, Total Protein 8.0, Albumin 4.8, Globulin 3.2, Albumin/Globulin Ratio 1.5 10/04/25 13:54 10/04/25 13:54 Orders (Tests/Meds): ED MEDICATIONS Generic Name Dose Route Start Last Admin Trade Name Freq PRN Reason Stop Dose Admin Hydrocodone Bitart/Acetaminophen 1 tab 10/04/25 21:00 Hydrocodone/Apap 5/325 Mg Tablet PO 11/03/25 20:59 TID LYNDA Amlodipine Besylate 10 mg 10/05/25 09:00 Amlodipine 10mg Tablet PO 11/04/25 08:59 DAILY LYNDA Aspirin 81 mg 10/05/25 09:00 Aspirin Ec 81mg Tablet PO 11/04/25 08:59 DAILY LYNDA Atorvastatin Calcium 40 mg 10/05/25 09:00 Atorvastatin 40mg Tablet PO 11/04/25 08:59 DAILY [facility] Bupropion HCl 150 mg 10/05/25 09:00 Bupropion Hcl Sr 150mg Tab PO 11/04/25 08:59 DAILY [facility] Buspirone HCl 10 mg 10/04/25 21:00 Buspirone Hcl 10 Mg Tablet PO 11/03/25 20:59 TID [facility] Carvedilol 6.25 mg 10/04/25 21:00 Carvedilol 6.25mg Tablet PO 11/03/25 20:59 BID [facility] Diazepam 5 mg 10/04/25 15:40 Diazepam 5mg Tablet PO 10/05/25 03:40 ONCE PRN Anxiety Enoxaparin Sodium 40 mg 10/05/25 09:00 Enoxaparin 40mg/0.4ml Syringe SUBCUT 11/04/25 08:59 DAILY [facility] Fentanyl Citrate 50 mcg 10/04/25 15:40 Fentanyl 100mcg/2ml Vial IV 10/05/25 03:40 Q3MINP PRN Sedation Fentanyl Citrate 25 mcg 10/04/25 15:40 Fentanyl 100mcg/2ml Vial IV 10/05/25 03:40 Q3MINP PRN Sedation Flumazenil 0.2 mg 10/04/25 15:40 Flumazenil 0.1mg/Ml 5ml Vial IV 10/05/25 03:40 NEEDED PRN Sedation Gabapentin 300 mg 10/04/25 21:00 Gabapentin 300mg Capsule PO 11/03/25 20:59 TID [facility] Lisinopril/HCTZ 2 each 10/05/25 09:00 Lisinopril/Hctz 10-12.5mg Tablet PO 11/04/25 08:59 DAILY [facility] Heparin Sodium (Porcine) 5,000 unit 10/04/25 15:40 Heparin 1,000 Units/Ml 10ml Vial (Securities Settlement Processor) IV 10/04/25 19:40 NEEDED PRN Emergency Box Customer Accounts Advisor Hydralazine HCl 20 mg 10/04/25 15:40 Hydralazine 20mg/Ml Vial IV 10/04/25 19:40 ONCE PRN sbp>160 Nitroglycerin/Dextrose 250 mls @ 6 mls/hr 10/04/25 14:30 10/04/25 15:08 Nitroglycerin 50mg/250ml D5w IV 11/03/25 14:29 20 mcg/min .Q24H LYNDA 6 mls/hr Protocol Administration 20 MCG/MIN Adenosine 180 mg/ Sodium 90 mls @ 428.647 mls/hr 10/04/25 15:40 Chloride IV 10/04/25 19:40 ONCE PRN fractional flow reserve 180 MCG/KG/MIN Adenosine 90 mg/ Sodium 90 mls @ 857.293 mls/hr 10/04/25 15:40 Chloride IV 10/04/25 19:40 ONCE PRN fractional flow reserve 180 MCG/KG/MIN Sodium Chloride 500 mls @ 25 mls/hr 10/04/25 15:45 Sod Chloride 0.9% 500ml Bag IV 10/05/25 15:40 .Q20H LYNDA Labetalol HCl 20 mg 10/04/25 15:40 Labetalol 20mg/4ml Syringe IV 10/04/25 19:40 ONCE PRN sbp>160 Midazolam HCl 1 mg 10/04/25 15:40 Midazolam 2mg/2ml Vial IV 10/05/25 03:40 Q3MINP PRN Sedation Midazolam HCl 1 mg 10/04/25 15:40 Midazolam Hcl 1mg/Ml 5ml Vial IV 10/05/25 03:40 Q3MINP PRN Sedation Naloxone HCl 0.4 mg 10/04/25 15:40 Naloxone 0.4mg/Ml Vial IV 10/05/25 03:40 Q5MINP PRN Decreased Respirations Nicotine 21 mg 10/04/25 15:31 Nicotine 21mg/24hr Patch TD 11/03/25 15:30 DAILYP PRN Nicotine Cravings Nitroglycerin 800 mcg 10/04/25 15:40 Nitroglycerin 800mcg/8ml Syr (Securities Settlement Processor) IA 10/04/25 19:40 NEEDED PRN Emergency Box Customer Accounts Advisor Ondansetron HCl 4 mg 10/04/25 15:31 Ondansetron 4mg/2ml Vial IV 11/03/25 15:30 Q6HP PRN Nausea Ondansetron HCl 4 mg 10/04/25 15:40 Ondansetron 4mg/2ml Vial IV 10/05/25 03:40 NEEDED PRN Nausea Pantoprazole Sodium 40 mg 10/04/25 21:00 Pantoprazole 40mg Tablet PO 11/03/25 20:59 HS LYNDA Promethazine HCl 25 mg 10/04/25 15:40 Promethazine Hcl 25mg/Ml 1ml Vial IV 10/05/25 03:40 NEEDED PRN Nausea And Vomiting Protamine Sulfate 50 mg 10/04/25 15:40 Protamine Sulfate 50mg/5ml Vial (Securities Settlement Processor) IV 10/04/25 19:40 ONCE PRN act>200 Tizanidine HCl 4 mg 10/04/25 15:37 Tizanidine 4mg Tablet PO 11/03/25 15:36 Q8HP PRN muscle spasticity Discontinued Medications Generic Name Dose Route Start Last Admin Trade Name Freq PRN Reason Stop Dose Admin Diphenhydramine HCl 50 mg 10/04/25 15:40 Diphenhydramine 50mg/Ml Vial IV 10/04/25 15:41 ONCE ONE Heparin Sodium/Sodium Chloride 3,000 unit 10/04/25 15:40 Heparin 1,000 Units/500ml Ns (Securities Settlement Processor) IV 10/04/25 15:41 ONCE ONE Lidocaine HCl 10 ml 10/04/25 15:40 Lidocaine 1% 10ml Mdv IJ 10/04/25 15:41 ONCE ONE Lidocaine HCl 10 ml 10/04/25 15:40 Lidocaine 1% 5ml Pf Vial IJ 10/04/25 15:41 ONCE ONE Morphine Sulfate 4 mg 10/04/25 15:40 Morphine 4mg/Ml Syringe IV 10/04/25 15:41 ONCE ONE Non-Formulary Medication 4 mg 10/04/25 15:35 Tizanidine PO Q8HP PRN muscle spasticity Verapamil HCl 2.5 mg 10/04/25 15:40 Verapamil 2.5mg/Ml 2ml Vial IV 10/04/25 15:41 ONCE ONE ORDERS Category Date Time Status XR chest portable Stat Exams 10/04/25 14:22 Completed Complete Blood Count Auto Diff Stat Lab 10/04/25 13:54 Completed Comprehensive Metabolic Panel Stat Lab 10/04/25 13:54 Completed Magnesium Stat Lab 10/04/25 13:54 Completed NT Pro Brain Natriuretic Pep. Stat Lab 10/04/25 13:54 Completed PT INR [Prothrombin Time INR] Stat Lab 10/04/25 13:54 Completed Troponin I Q3H Lab 10/04/25 17:15 Ordered Troponin I Q3H Lab 10/04/25 20:15 Ordered Troponin I Stat Lab 10/04/25 13:54 Completed Medical Decision Narrative: 55-year-old male presents the emergency department with chest pain that has been waxing and waning ongoing for the last 2 to 3 days, differential diagnose include but not limited to ACS, costochondritis, pneumonia, pneumothorax, COPD exacerbation, cardiac arrhythmia, electrolyte disturbance among others. I discussed this patient's case with attending Dr. Nash Will obtain EKG, basic laboratory studies magnesium level proBNP PT/INR, troponin, and chest x-ray. I discussed this patient's case with the on-call banquet line cook at approximately 2:25 PM, he recommends starting the patient on IV nitroglycerin drip, will be on the Securities Settlement Processor schedule today. CMP is noted for hypochloremia 94, anion gap 16.5, I discussed this patient's case with the attending hospitalist physician 2:54 PM, he is in agreement with current admission plan/treatment plan, for unstable angina, with plan for Securities Settlement Processor today. CBC is unremarkable Coags within normal limits Troponin less than 0.01, proBNP within normal limits. I reviewed the patient's chest x-ray along the corresponding radiologic report, chronic changes that acute cardiopulmonary process Critical Care Critical Care Time Critical Care Time: No
[2025-10-04 14:22] LABS: Albumin Level 4.8 g/dl (3.5-5.0); Chloride 94 mmol/L (98-107)
--- NOTE | 2025-10-04 14:22 | XR_ITS ---
FINAL REPORT CLINICAL HISTORY: Shortness of breath and chest pain COMPARISON: 03/14/2025 FINDINGS: The heart size is normal. The mediastinum is normal. There is a small hiatal hernia. Chronic changes are noted in the lung bases. There is no focal infiltrate or edema. There are no pleural effusions. There is no pneumothorax. There is no osseous abnormality. IMPRESSION: Chronic changes without acute cardiopulmonary process Reviewed, Interpreted and Dictated by Duran Larios MD Transcribed by Lluvia Cyr Authenticated and [facility]
[2025-10-04 14:23] LABS: Potassium 3.5 mmoL/L (3.5-5.1); Sodium 136 mmol/L (136-145)
[2025-10-04 14:25] LABS: Alanine Aminotransferase 26 U/L (12-78); Alkaline Phosphatase 106 U/L (38-126); Anion Gap 16.5 mEq/L (5-15); Aspartate Amino Transferase 27 U/L (17-59); Bilirubin,Total 0.5 mg/dl (0.2-1.3); Blood Urea Nitrogen 10 mg/dl (9-20); Carbon Dioxide 29 mmol/L (22.0-30.0); Creatinine Clearance Estimated 120 mL/min (50-200); Creatinine,Serum 0.80 mg/dl (0.66-1.25); Estimated Glomerular Filt Rate 101 ml/min (>60); GFR (African American) 122 ML/MIN (>60)
[2025-10-04 14:26] LABS: Albumin/Globulin Ratio 1.5 (1.1-1.8); Calcium 9.2 mg/dl (8.4-10.2); Globulin 3.2 g/dL (1.3-3.2); Glucose 110 mg/dl (74-100); Magnesium 2.1 mg/dl (1.6-2.3); Total Protein,Serum 8.0 g/dl (6.3-8.2)
[2025-10-04 14:30] LABS: Hematocrit 41.8 % (42.0-52.0); Hemoglobin 14.6 g/dL (14.1-18.0); Immature Granulocytes % 0.3 %; Mean Corpuscular HGB Conc 34.9 g/dL (31.8-35.4); Mean Corpuscular Hemoglobin 30.7 pg (27.0-31.2); Mean Corpuscular Volume 87.8 fl (80-94); Nucleated Red Blood Cells % 0 %; Platelet Count 372 K/mm3 (142-424); Red Blood Count 4.76 M/mm3 (4.60-6.20); Red Cell Distribution Width-SD 42.6 fL; White Blood Count 7.4 K/mm3 (4.8-10.8)
[2025-10-04 14:35] LABS: NT Pro Brain Natriuretic Pep. 24.6 pg/mL (0-125)
--- NOTE | 2025-10-04 14:37 | HMH.PHAINT1 ---
Pharmacy Intervention Comments: MEDICATION RECONCILIATION COMPLETED ON PATIENT USING EXTERNAL FILL HISTORY FROM PHARMACY. -ANNA BANKS, HOMEROD
[2025-10-04 14:46] LABS: INR 0.92 (0.9-1.1); Prothrombin Time 10.3 seconds (10.1-12.5)
[2025-10-04 14:54] LABS: Troponin I < 0.01 ng/ml (0.00-0.034)
--- NOTE | 2025-10-04 15:06 | PC.NURSE ---
preparation plant supervisor contacted for bed
[2025-10-04] MEDS: NITROGLYCERIN IN 5 % DEXTROSE 250 ML 6 MG IV (15:08)
--- NOTE | 2025-10-04 15:35 | CA_ITS ---
APPROVED REPORT EXAM: Comprehensive 2D, Doppler, and color-flow Echocardiogram It Support Engineer: Annette Hutchinson RVT Ht: 6 ft 0 in Wt: 175lbs BSA: 2.01 BP: 130/83 mmHg Indications: ANGINA 2D Dimensions IVSd 1.18 cm M: 0.6-1.2 LVEF (Visual) 55.00 % PWd 0.93 cm M: 0.6 - 1.2 LA Volume 39.90 mL LVDd 4.18 cm M: 4.2 - 5.9 LA Volume Index 19.85 mL/m2 (M/F) 16-34 LVDs 3.00 cm M: 2.5 - 4.0 M-Mode Dimensions LA Diam 4.08 cm (1.9-4.0) TAPSE 2.59 (<1.7) LV Diastology E Decel Time 200 (160-240 msec) E/A Ratio 0.7 Aortic Valve ROCCO Index 2.07 cm2/m2 AoV Peak Prateek. 104.0 (50-130 cm/s) AO Peak GR. 4.40 mmHg AO Mean GR. 2.50 (<5 mmHg) AO VTI 16.3 (18-25 cm) ROCCO (VTI) 4.26 (2.5-4.5 cm2) Mitral Valve MV E Max Prateek. 54.0 (40-130 cm/s) MV A Velocity 73.0 (40-130 cm/s) E/A Ratio 0.74 MV PHT 59.0 ms Pulmonary Valve PV Peak Velocity 98.0 (50-150 cm/s) Left Ventricle The left ventricle is normal size. Left ventricular systolic function is normal. The left ventricular ejection fraction is within the normal range. There is increased left ventricular wall thickness. There is normal LV segmental wall motion. Transmitral Doppler flow pattern suggests impaired LV relaxation. LVEF is 65% Right Ventricle Right ventricle is mildly dilated. The right ventricular systolic function is normal. Atria Left atrium is mildly dilated. Right atrium is mildly dilated. There is no color Doppler evidence of interatrial shunt. Aortic Valve The aortic valve opens well. There is no hemodynamically significant aortic valvular stenosis. No aortic regurgitation is present. Mitral Valve The mitral valve is normal in structure. No evidence of mitral valve stenosis. Trace mitral regurgitation is present. Tricuspid Valve The tricuspid valve leaflets are thin and pliable. Trace tricuspid regurgitation. There is insufficient TR jet to estimate RVSP. Pulmonic Valve The pulmonary valve is grossly normal in structure. Trace pulmonic valve regurgitation is present. Great Vessels The aortic root is normal in size. IVC is normal in size and collapses >50% with inspiration. Pericardium There is no pericardial effusion. Other Information Study Quality: Fair Conclusion Normal biventricular systolic function. Mild RV dilation. Mild biatrial dilation. No significant valvular stenosis or regurgitation. Electronically signed by : Myriam Jacobson MD 10/05/2025 12:11:16
--- NOTE | 2025-10-04 15:43 | P.HP_ITS ---
<Statement entered by Daniel Ott MD - 10/10/25 11:09> Agree with plan of care as outlined by the CERAMIC RESEARCH ENGINEER. History of Present Illness *Admission Date: 10/04/25 *Reason for visit:: chest pain *History of present illness: Mr. Narayanan is a 55-year-old male who presented to his cardiology office today due to continued chest pain over the past few days. He rates it intermittently between 5?7 out of 10. States he has been having the pain since Friday, substernal sharp chest pain and diaphoresis. He states it is woken him up from sleep multiple times. He has a primary medical history of CAD, hypertension, hyperlipidemia, GERD, depression/anxiety, COPD, emphysema. EKG performed in cardiac office showed sinus rhythm with no ST elevation. Patient had a LHC in 06/2024 where he received 1 WINSOME. Patient was sent from the cardiac office to the emergency department for further evaluation of his unstable angina. Patient denies fever, chills, cough, congestion, abdominal pain, urinary symptoms. Endorses smoking daily but states he has cut back, occasional alcohol use, denies drug use. Workup in the emergency department was significant for troponin less than 0.01, proBNP within normal limits, coags normal, CBC unremarkable, CMP shows anion gap of 16.[address] Cm was consulted from the emergency department who recommended admission and and patient be placed on a IV nitroglycerin drip due to continued unstable angina. [facility] Disclaimer: The information contained in this section may have been updated after the jose lobo was seen, as this information can be updated by other users. Medical History Encounter for screening for malignant neoplasm of respiratory organs Mediastinal lymphadenopathy Coronary artery disease Angina pectoris Abnormal findings on diagnostic imaging of heart and coronary circulation Lesion of vocal cord Hoarseness Anxiety History of gastroesophageal reflux (GERD) Hypertension Heart attack X2 COPD mixed type Pulmonary emphysema Dyspnea on exertion Smoking greater than 30 pack years Hoarseness of voice Emphysema lung Erectile dysfunction Chest pain Surgical History History of throat surgery H/O heart artery stent History of ear surgery History of hernia surgery Family History Other Asthma COPD (chronic obstructive pulmonary disease) Diabetes Heart attack Hypertension Lung cancer Social History Smoking Status: Current every day smoker alcohol intake: never substance use type: denies use current occupational status: disabled Travel in the last 8 weeks?: None Have you lived/traveled outside US in past 30 days?: No Contact w/someone who lives/traveled outside US past 30 days?: No Exposure to someone with infectious disease in past 14 days?: No Do you have a fever (greater than 100.4 F or 38 C)?: No Have you tested positive for COVID-19?: No Exposed to someone with COVID-19 in past 14 days?: No Do you have a sore throat?: No Do you have a cough?: No Do you have any weakness?: No Do you have any diarrhea?: No Are you experiencing any unusual bleeding?: No Do you have any muscle aches/pain?: No Do you have any abdominal pain?: No Are you experiencing loss of taste or smell?: No Other Medical History Have you received the Flu Vaccine for this season: Yes Have you received the Pneumonia Vaccine: No Review of Systems *Cardiovascular Cardiovascular: Reports chest pain, Reports chest pain at rest, Reports chest pain with activity, Denies edema and Denies rapid heart rate Meds Home Medications and Allergies Home Medications ?Medication ?Instructions ?Recorded ?Confirmed ?Type amlodipine 10 mg tablet 10 mg PO DAILY 05/28/2209/17 History gabapentin 300 mg capsule 300 mg PO TID 05/28/2210/04 History omeprazole 40 mg capsule,delayed 40 mg PO DAILY 10/04/25 History release lisinopril 20 1 tab PO DAILY #90 tabs 05/1810/04/25 Rx mg-hydrochlorothiazide 25 mg tablet atorvastatin 40 mg tablet 40 mg PO DAILY #90 tabs 05/1910/04/25 Rx hydrocodone 5 mg-acetaminophen 325 1 tab PO TID 10/04/25 History mg tablet bupropion HCl 150 mg 24 hr tablet, 150 mg PO DAILY #90 tabs 06/16/25 10/04/25 Rx extended release (Wellbutrin XL) aspirin 81 mg tablet,delayed 81 mg PO DAILY #90 tabs 0 07/26/25 10/04/25 Rx release (Adult Aspirin Regimen) buspirone 10 mg tablet 10 mg PO TID #90 tabs 10/04/25 Rx carvedilol 6.25 mg tablet 6.25 mg PO BID 10/04/2509/17 History tizanidine 4 mg capsule 4 mg PO Q8HP PRN muscle spas ticity 10/04/25 10/04/25 History New Prescriptions to Start Prescriptions: Allergies Allergy/AdvReac Type Severity Reaction Status Date / Time Sulfa (Sulfonamide AdvReac Intermediate Rash Verified 10/04/25 13:22 Antibiotics) Exam Data for Last 24 hours Vital signs and Labs for Last 24 Hours: Temp Pulse Resp BP Pulse Ox O2 Del Method 98.3 F 95 H 18 109/71 L 93 L Room Air 10/04/25 13:50 10/04/25 15:30 10/04/25 15:30 10/04/25 15:30 10/04/25 15:30 10/04/25 13:50 Laboratory Results - last 24 hr 10/04/25 13:54: WBC 7.4, RBC 4.76, Hgb 14.6, Hct 41.8 L, MCV 87.8, MCH 30.7, MCHC 34.9, RDW 13.2, Plt Count 372, MPV 9.4, Neut % (Auto) 64.6, Lymph % (Auto) 19.8, [place] % (Auto) 13.7 H, Eos % (Auto) 1.2, Baso % (Auto) 0.4, Neut # (Auto) 4.8, Lymph # (Auto) 1.5, [place] # (Auto) 1.0, Eos # (Auto) 0.1, Baso # (Auto) 0.0, PT 10.3, INR 0.92, Sodium 136, Potassium 3.5, Chloride 94 L, Carbon Dioxide 29, Anion Gap 16.5 H, BUN 10, Creatinine 0.80, Estimated Creat Clear 120, Estimated GFR 101, Est GFR ( Amer) 122, Glucose 110 H, Calcium 9.2, Magnesium 2.1, Total Bilirubin 0.5, AST 27, ALT 26, Alkaline Phosphatase 106, Troponin I < 0.01, NT-Pro-B Natriuret Pep 24.6, Total Protein 8.0, Albumin 4.8, Globulin 3.2, Albumin/Globulin Ratio 1.5 I & O for Last 24 hours: Intake & Output 10/01/25 10/02/25 10/03/25 10/04/25 23:59 23:59 23:59 23:59 Weight 79.379 kg Constitutional Constitutional: no acute distress *Routine HEENT Exam Head: Present normocephalic Eye: Present EOMI and PERRL ENT: Present mucous membranes moist *Routine Neck Exam Neck: Present supple; Absent lymphadenopathy *Routine Respiratory Exam Respiratory: Present CTA bilaterally *Routine Cardiovascular Exam Cardiovascular: Present RRR *Routine Abdominal Exam Abdominal: Present soft and normoactive bowel sounds; Absent tenderness *Routine Rectal Exam Rectal:: deferred *Routine Genitalia Exam Genitalia:: deferred *Routine Extremities Exam Extremities: Absent cyanosis, clubbing or edema *Routine Skin Exam Skin: Present warm; Absent rash *Routine Neurological Exam Neurological: Present alert and oriented X3 Assessment and Plan *Assessment and plan (1) Unstable angina: Status: Acute Category: Medical Code(s): I20.0 - Unstable angina (2) HTN (hypertension): Status: Chronic Qualifiers: Hypertension type: primary hypertension Qualified Code(s): I10 - Essential (primary) hypertension Category: Medical Code(s): I10 - Essential (primary) hypertension (3) Coronary artery disease: Status: Acute Qualifiers: Associated angina: without angina Coronary Disease-Associated Artery/Lesion type: [place] artery Pl[place] vs. transplanted heart: [place] heart Qualified Code(s): I25.10 - Atherosclerotic heart disease of [place] coronary artery without angina pectoris Category: Medical Code(s): I25.10 - Atherosclerotic heart disease of [place] coronary artery without angina pectoris (4) Smoker: Status: Chronic Category: Social Hx Code(s): F17.200 - Nicotine dependence, unspecified, uncomplicated (5) Smoking greater than 30 pack years: Status: Acute Category: Social Hx Code(s): F17.210 - Nicotine dependence, cigarettes, uncomplicated (6) GERD (gastroesophageal reflux disease): Status: Acute Category: Medical Code(s): K21.9 - Gastro-esophageal reflux disease without esophagitis Plan Mr. Narayanan is a 55-year-old male who presented to his cardiology office today due to continued chest pain over the past few days. He rates it intermittently between 5?7 out of 10. States he has been having the pain since Friday, substernal sharp chest pain and diaphoresis. He states it is woken him up from sleep multiple times. He has a primary medical history of CAD, hypertension, hyperlipidemia, GERD, depression/anxiety, COPD, emphysema. EKG performed in cardiac office showed sinus rhythm with no ST elevation. Patient had a LHC in 06/2024 where he received 1 WINSOME. Patient was sent from the cardiac office to the emergency department for further evaluation of his unstable angina. Patient denies fever, chills, cough, congestion, abdominal pain, urinary symptoms. Endorses smoking daily but states he has cut back, occasional alcohol use, denies drug use. Workup in the emergency department was significant for troponin less than 0.01, proBNP within normal limits, coags normal, CBC unremarkable, CMP shows anion gap of 16.[address] Dr. Cm was consulted from the emergency department who recommended admission and and patient be placed on a IV nitroglycerin drip due to continued unstable angina. Hospital medicine was called for admission, I agreed to admit the patient. Plan of care as follows: #Unstable angina #Hypertension #CAD ? Patient has history of LHC with 1 WINSOME. He has known coronary artery disease, currently is prescribed amlodipine 10 mg daily, aspirin 81 mg daily, atorvasta tin 40 mg daily, carvedilol 6.25 mg twice daily, lisinopril?HCTZ 1 tab daily. Continue home cardiac medication last echocardiogram showed normal EF, repeat pending. ?Plans for [facility] today to evaluate unstable angina. Patient currently on nitroglycerin drip for chest pain. Cardiology consulted for further recommendation. ?Patient placed in stepdown for continuous cardiac telemetry and close monito ring. ?CBC, CMP, magnesium, lipid panel ordered for the a.m. #Tobacco use disorder: Nicotine patches ordered as needed, smoking cessation discussed. #GERD: Continue omeprazole 40 mg daily. #Chronic pain: Continue gabapentin 300 mg 3 times daily, tizanidine 4 mg every 8 hours as needed, and [place] 5/325 mg 3 times daily. #Mood disorder: Continue BuSpar 10 mg 3 times daily and return 150 mg daily. Full code Ambulate as tolerated N.p.o., cardiac diet post procedure VTE?Lovenox
--- NOTE | 2025-10-04 16:31 | PC.NURSE ---
arrived by w/c from ED
[2025-10-04 16:56] LABS: Thyroid Stimulating Hormone 0.63 uIU/mL (0.465-4.68)
[2025-10-04 18:03] LABS: Anion Gap 11.6 mEq/L (5-15); Blood Urea Nitrogen 9 mg/dl (9-20); Calcium 9.1 mg/dl (8.4-10.2); Carbon Dioxide 27 mmol/L (22.0-30.0); Chloride 94 mmol/L (98-107); Creatinine Clearance Estimated 137 mL/min (50-200); Creatinine,Serum 0.70 mg/dl (0.66-1.25); Estimated Glomerular Filt Rate 118 ml/min (>60); GFR (African American) 143 ML/MIN (>60); Glucose 110 mg/dl (74-100); Potassium 3.6 mmoL/L (3.5-5.1); Sodium 129 mmol/L (136-145)
--- OUTSIDE RECORDS SUMMARY | 2025-10-04 18:11 | XMS_ITS | Clinical Summary ---
Author Organization [facility] Address [address] [place] [address] Phone Care Team Providers Care Christian Science Practitioner Name Role Phone Oxana Sotelo MD Primary Care Provider [phone] Allergies Active Allergy Reactions Criticality Noted Date Comments Sulfa (Sulfonamide Antibiotics) Hives 07/19 Medications omeprazole (PRILOSEC) 10 mg Oral Capsule, Delayed Release(E.C.) Take 10 mg by mouth daily. Active lisinopril (PRINIVIL;ZESTRIL ) 10 mg Oral Tablet Take 10 mg by mouth daily. Active aspirin 81 mg Oral Tablet, Delayed Release (E.C.) Take 81 mg by mouth daily. Active ibuprofen (ADVIL;MOTRIN) 600 mg Oral Tablet Take 1 Tab by mouth every 6 hours as needed for Pain. 20 Tab 0 016 Active ondansetron (ZOFRAN-ODT) 8 mg Oral Tablet, Rapid Dissolve Take 1 Tab by mouth every 6 hours as needed for Nausea for up to 8 doses. 12 Tab 1 017 Active butalb/acetaminop hen/caffeine (FIORICET ORAL) Fioricet one every four hours as needed 021 Active ALPRAZolam (XANAX) 0.5 mg Oral Tablet 021 Active methylPREDNISolon e (MEDROL DOSPACK) 4 mg Oral Tablets, Dose Pack methylprednisolone 4 mg tablets in a dose pack Active carvediloL (COREG) 6.25 mg Oral Tablet carvedilol 6.25 mg tablet Active celecoxib (CELEBREX) 200 mg Oral Capsule 1 Capsule daily. Active cephALEXin (KEFLEX) 500 mg Oral Capsule cephalexin 500 mg capsule Active diclofenac (VOLTAREN) 1 % Top Gel diclofenac 1 % topical gel Active lisinopriL-hydroc hlorothiazide (PRINZIDE;ZESTORE TIC) 10-12.5 mg Oral Tablet Active meloxicam (MOBIC) 7.5 mg Oral Tablet Take 7.5 mg by mouth 2 times daily as needed. for pain Active Tadalafil 20 mg Oral Tablet Active diclofenac (VOLTAREN) 75 mg Oral Tablet, Delayed Release (E.C.)Indications :Sprain of right knee, unspecified ligament, initial encounter Take 1 Tablet by mouth 2 times daily. 30 Tablet Active Amoxicillin 500 mg Oral Tablet amoxicillin 500 mg tablet Take 1 tablet 3 times a day by oral route. Acti ve ergocalciferol (DRISDOL) 1,250 mcg (50,000 unit) Oral Capsule ergocalciferol (vitamin D2) 1,250 mcg (50,000 unit) capsule Active fexofenadine-pseu doephedrine (ARYA-D) 60-120 mg Oral Tablet Sustained Release 12 hr Arya-D 12 Hour 60 mg-120 mg tablet,extended release Active hydrOXYzine (ATARAX) 25 mg Oral Tablet hydroxyzine HCl 25 mg tablet Active etodolac (LODINE) 500 mg Oral TabletIndications :Primary osteoarthritis of both knees Take 1 Tablet by mouth 2 times daily. 60 Tablet 022 Active tiZANidine (ZANAFLEX) 2 mg Oral TabletIndications :Strain of lumbar region, initial encounter Take 2 Tablets by mouth nightly. 30 Tablet 022 Active HYDROcodone-aceta minophen (NORCO) 5-325 mg Oral TabletIndications :Sprain of right knee, unspecified ligament, initial encounter Take 1 Tablet by mouth every 8 hours as needed (pain). 20 Tablet 022 Active oxyCODONE (ROXICODONE) 5 mg Oral TabletIndications :Acute low back pain, unspecified back pain laterality, unspecified whether sciatica present Take 1 Tablet by mouth every 6 hours as needed for Acute Pain > 3 Days Medically Necessary (R52). 15 Tablet 022 Active tiZANidine (ZANAFLEX) 4 mg Oral Tablet Take 1 Tablet by mouth nightly as needed for Muscle spasms. 30 Tablet 022 Active methocarbamoL (ROBAXIN) 750 mg Oral TabletIndications :Cervical pain,Neck sprain, initial encounter Take 1 Tablet by mouth every 8 hours as needed. 20 Tablet 022 Active nabumetone (RELAFEN) 750 mg Oral TabletIndications :Cervical pain,Neck sprain, initial encounter Take 1 Tablet by mouth 2 times daily. 60 Tablet 022 Active oxyCODONE (ROXICODONE) 5 mg Oral TabletIndications :Cervical pain,Strain of lumbar region, initial encounter,Acute low back pain, unspecified back pain laterality, unspecified whether sciatica present Take 1 Tablet by mouth every 8 hours as needed for Acute Pain > 3 Days Medically Necessary (R52). 15 Tablet 022 Active Active Problems Patient Care Coordination No te Formatting of this note migh t be different from the original. 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 EAR SURGERY Medical History Medical History Date Comments Reflux Reflux esophagitis Hypertension [place] (myocardial infarction) (HCC) Heartburn Hiatal hernia Family History Medical History Relation Name Comments Hearing Loss Mother Heart Disease Mother Cancer Other Anesth Problems Neg Hx Relation Name Status Comments Mother Other Social History Tobacco Use Types Packs/Day Years Used Date Smoking Tobacco: Some Days Cigarettes Smokeless Tobacco: Never Tobacco Cessation:Ready to Q uit: No Comments:drinks and smokes on weekends Alcohol Use Standard Drinks/Week Comments Yes 12 (1 standard drink = 0.6 oz pu re alcohol) weekends Sex and Gender Information Value Date Recorded Sex Assigned at Not on file Legal Sex Male 9:54 AM EDT Gender Identity Not on file Sexual Orientation Not on file Last Filed Vital Signs Vital Sign Reading Time Taken Comments Blood Pressure 140/80 04/09/2022 8:58 AM EDT Pulse 51 04/09/2022 8:58 AM EDT Temperature 36.9 C (98.5 F) 08/06/2021 12:22 PM EDT Respiratory Rate 18 08/06/2021 2:58 PM EDT Oxygen Saturation 100% 04/09/2022 8:58 AM EDT Inhaled Oxygen Concentration - - Weight 97.1 kg (214 lb) 04/09/2022 8:58 AM EDT Height 180.3 cm (5' 11 ) 04/09/2022 8:58 AM EDT Body Mass Index 29.85 04/09/2022 8:58 AM EDT Plan of Treatment Health Maintenance Due Date Last Done Comments Annual Wellness Exam 1975 Hepatitis B Vaccine (1 of 3 - 19+ 3-dose series) 1991 Cologuard 2017 Colon Cancer Screening 2017 Colonoscopy 2017 FIT 2017 Sigmoidoscopy 2017 Virtual Colonography 2017 DTaP/TDaP/Td (2 - Td or Tdap) 03/13/2020, 01/21/1997 Pneumococcal Vaccine 50+ (1 of 1 - PCV) 2022 Zoster (1 of 2) 2022 COVID-19 Vaccine (3 - 2024-2 6 season) 2025 02/20/2021, 01/22/2021 Influenza Vaccine (#1) 2025 4, 07/29/2012 Meningococcal B Vaccine Aged Out No l onger eligible based on patient's age to complete this topic Medical Devices Implanted Type Area Corporate Travel Expert Device Identifier Shelf Expiration Date Model / Serial / Lot Prosthesis Stapes Classic Shaft 4mm X 0.6mm - [id number] Implanted:Qty: 1 on 04/07/2017 by Gene La MD at [facility] Right: Ear GYRUS ACMI:ENT 11/30/2026 [id number] / / [id number] Insurance [facility] [employer] [place] Advance Directives For more information, please contact: [phone] * Full Code (Latest Code Status on File) Date Activated Date Inactivated Comments 04/23/2016 6:53 PM 04/23/2016 11:31 PM Care Teams Christian Science Practitioner Relationship Specialty Start Date End Date Oxana Sotelo MD [address] [place] [id number] PCP - General Family Medicine 03/28/15
--- OUTSIDE RECORDS SUMMARY | 2025-10-04 18:11 | XMS_ITS | Clinical Summary ---
Author Organization [facility] Address [address] [place] [id number] Care Team Providers Care Juice Standardizer Name Role Phone Oxana Sotelo MD Primary Care Provider [phone] Source Comments This information has been disclosed to you from confidential records protectedfrom disclosure by state law. You shall make no further disclosure of thisinformation without the specific, written, and informed release of theindividual to whom it pertains, or as otherwise permitted by law. A generalauthorization for the release of medical or other information is not sufficientfor the purposes of therelease of HIV test results or diagnoses. [id number] Allergies No known active allergies Medications lisinopril-hydro chlorothiazide (PRINZIDE,ZESTOR ETIC) 20-12.5 mg per tablet Take 1 tablet by mouth daily. Active omeprazole (PRILOSEC) 20 MG capsule Take 20 mg by mouth every morning before breakfast. Active aspirin 81 MG EC tablet Take 1 tablet (81 mg total) by mouth daily with breakfast. 30 tablet 3 02/04/2014 Active atorvastatin (LIPITOR) 40 MG tablet Take 1 tablet (40 mg total) by mouth at bedtime. 30 tablet 3 02/04/2014 Active isosorbide mononitrate (IMDUR) 30 MG 24 hr tablet Take 1 tablet (30 mg total) by mouth daily. 30 tablet 3 02/04/2014 Active Active Problems Problem Noted Date Diagnosed Date Chest pain 02/03/2014 Immunizations Immunization Administration Dates Next Due Influenza, trivalent, with preservative 02/05/20 14,02/04/2014 Family History Medical History Relation Comments Heart disease Father Heart disease Mother Relation Status Comments Father Mother Social History Tobacco Use Types Packs/Day Years Used Date Smoking Tobacco: Every Day Cigarettes Alcohol Use Standard Drinks/Week Comments Yes 0 (1 standard drink = 0.6 oz pur e alcohol) Sex and Gender Information Value Date Recorded Sex Assigned at Not on file Legal Sex Male 4:20 PM EST Gender Identity Not on file Sexual Orientation Not on file Last Filed Vital Signs Vital Sign Reading Time Taken Comments Blood Pressure 130/72 02/04/2014 2:00 PM EDT Pulse 85 02/04/2014 2:00 PM EDT Temperature 36.4 C (97.5 F) 02/04/2014 8:58 AM EDT Respiratory Rate 21 02/04/2014 2:00 PM EDT Oxygen Saturation 95% 02/04/2014 2:00 PM EDT Inhaled Oxygen Concentration 95% 02/04/2014 2 :00 PM EDT Weight 89.5 kg (197 lb 6.4 oz) 02/04/2014 5:33 A M EDT Height - - Body Mass Index - - Plan of Treatment Not on file Insurance [employer] Advance Directives For more information, please contact: [phone] * Full Code (Latest Code Status on File) Date Activated Date Inactivated Comments 02/03/2014 8:51 PM 02/04/2014 6:26 PM Care Teams Juice Standardizer Relationship Specialty Start Date End Date Oxana Sotelo MD [address] [place] [address] [place] [address] PCP - General Family Medicine 02/03/14
--- OUTSIDE RECORDS SUMMARY | 2025-10-04 18:12 | XMS_ITS | Clinical Summary ---
Author Organization [facility] Address [address], [address] [place] [address] Care Team Providers Care Home Health Lvn Name Role Phone Unavailable Primary Care Provider Unavailabl e Allergies No known active allergies Medications gabapentin (NEURONTIN) 300 MG capsule 03/21/2021 Active HYDROcodone-acet aminophen (NORCO) 5-325 MG per tablet 03/05/2021 Active lisinopril-hydro CHLOROthiazide (PRINZIDE;ZESTOR ETIC) 10-12.5 MG per tablet 03/16/2021 Active methocarbamol (ROBAXIN) 500 MG tablet 01/26/2021 Active omeprazole (PRILOSEC) 40 MG delayed release capsule 03/05/2021 Active carvedilol (COREG) 6.25 MG tablet Take 6.25 mg by mouth 2 times daily (with meals) Active Active Problems No known active problems Family History Medical History Relation Name Comments Cancer Father Heart Disease Father High Blood Pressure Father Arthritis Mother Asthma Mother Relation Name Status Comments Father (Age 66) cancer Mother Alive Social History Tobacco Use Types Packs/Day Years Used Date Smoking Tobacco: Smoker, Current Status Unknown Smokeless Tobacco: Never Alcohol Use Standard Drinks/Week Comments Yes 0 (1 standard drink = 0.6 oz pur e alcohol) Sex and Gender Information Value Date Recorded Sex Assigned at Not on file Legal Sex Male 8:24 AM EDT Gender Identity Not on file Sexual Orientation Not on file Last Filed Vital Signs Vital Sign Reading Time Taken Comments Blood Pressure - - Pulse - - Temperature 36.4 C (97.5 F) 11/12/2021 1:39 PM EST Respiratory Rate - - Oxygen Saturation - - Inhaled Oxygen Concentration - - Weight 99.8 kg (220 lb) 11/12/2021 1:39 PM EST Height 180.3 cm (5' 11 ) 11/12/2021 1:39 PM EST Body Mass Index 30.68 11/12/2021 1:39 PM EST Plan of Treatment Not on file Insurance [facility]
--- OUTSIDE RECORDS SUMMARY | 2025-10-04 18:12 | XMS_ITS | Data Portability ---
Author Organization [facility] Address [address] [place] [address] Care Team Providers Care Bathhouse Attendant Name Role Phone DANA CM Administrative Judge Assessment Encounter Date Assessment Date Assessment LastModified by Organization Details LastModified Time 03/25/2025 03/25/2025 Will call with lab results when available. Call office with questions or concerns. RTO for new or worsening symptoms. Not available 03/25/2025 12:31:00 Plan of Treatment Reminders Order Date Submit Date Provider Last Modified By Organization Details Last Modified Time Details Appointments None recorded . Lab CBC w/ auto diff 2024 025 [facility], [address], Antonio F, [place], [address], 07:50:33 CMP, serum or plasma 2024 025 [facility], [address], Antonio F, [place], [address], 5 07:50:33 Referral None recorded . Procedures None recorded . Surgeries None recorded . Imaging XR, chest 2024 025 [facility], [address] [place], [address], 11:54:08 CT, chest, w/o contrast 2024 025 [facility], [address] [place] [address], [address], 5 14:03:18 electroc ardiogra m [email or web address] [place] [address], [address] [place] [address], [place], [address], 5 07:42:30 Medication Orders bupivaca ine (PF) 0.75 % (7.5 mg/mL) injectio n solution 2024 025 [email or web address] [facility], [address] [place] [address], [place], [address], 5 13:25:44 triamcin olone acetonid e 40 mg/mL suspensi on for injectio n 2024 025 [facility], [address] [place] [address], [place], [address], 5 09:14:22 ketorola c 60 mg/2 mL intramus cular solution 2024 025 [email or web address] [facility], [address] [place] [address], [place], [address], 5 13:33:45 Solu-Med rol (PF) 125 mg/2 mL solution for injectio n 2024 025 [email or web address] Not available 5 13:44:18 ceftriax one 1 gram solution for injectio n 2024 025 [email or web address] Not available 5 13:33:20 azithrom ycin 500 mg tablet 2024 025 [email or web address] [facility], [address] [place] [address], [place], [address], 5 10:40:19 predniso ne 20 mg tablet 2024 025 [facility], [address] [facility], [place], [address], 09:11:05 Patient TargetsNo targets recorded. Patient Instructions Encounter Date Encounter Id Patient Instructions Last Modified By Organization Details Last Modified Time 05/16/2025 [id number] smoking cessatio n counseling, greater than 3 [...] /uL 3.4-10 .8 normal Not Available [facility] ([facility]) [address] [place], [address], 03/26/2025 07:50:33 03/25/2003/26/2025 CBC WITH DIFFE RENTI AL/PL ATELE T RBC 4.32 x10e6 /uL 4.14-5 .80 normal Not Available [facility] ([facility]) [address] [place], [address], 03/26/2025 07:50:33 03/25/20 25 03/26/2025 CBC WITH DIFFE RENTI AL/PL ATELE T hemoglobin 13.6 g/dL 13.0-1 7.7 normal Not Available [facility] ([facility]) [address] [place], [address], 03/26/2025 07:50:33 03/25/20 25 03/26/2025 CBC WITH DIFFE RENTI AL/PL ATELE T hematocrit 40.3 % 37.5-5 1.0 normal Not Available [facility] ([facility]) [address] [facility], [place], [address], 03/26/2025 07:50:33 03/25/2003/26/2025 CBC WITH DIFFE RENTI AL/PL ATELE T MCV 93 fL 79-97 normal Not Available [facility] ([facility]) [address] [place], [address], 03/26/2025 07:50:33 03/25/20 25 03/26/2025 CBC WITH DIFFE RENTI AL/PL ATELE T MCH 31.5 pg 26.6-3 3.0 normal Not Available [facility] ([facility]) [address] [place], [address], 03/26/2025 07:50:33 03/25/20 25 03/26/2025 CBC WITH DIFFE RENTI AL/PL ATELE T MCHC 33.7 g/dL 31.5-3 5.7 normal Not Available [facility] ([facility]) [address] [place], [address], 03/26/2025 07:50:33 03/25/2003/26/2025 CBC WITH DIFFE RENTI AL/PL ATELE T RDW 12.9 % 11.6-1 5.4 Not Available [facility] ([facility]) [address] [place], [address], 03/26/2025 07:50:33 03/25/2003/26/2025 CBC WITH DIFFE RENTI AL/PL ATELE T platelets 567 x10e3 /uL 150-45 0 above high normal Not Available [facility] ([facility]) [address] [place], [address], 03/26/2025 07:50:33 03/25/20 25 03/26/2025 CBC WITH DIFFE RENTI AL/PL ATELE T neutrophils 62 % not estab. normal Not Available [facility] ([facility]) [address] [facility], [place], [address], 03/26/2025 07:50:33 03/25/20 25 03/26/2025 CBC WITH DIFFE RENTI AL/PL ATELE T lymphs 23 % not estab. normal Not Available [facility] ([facility]) [address] [facility], [place], [address], 03/26/2025 07:50:33 03/25/20 25 03/26/2025 CBC WITH DIFFE RENTI AL/PL ATELE T monocytes 13 % not estab. normal Not Available [facility] ([facility]) [address] [place], [address], 03/26/2025 07:50:33 03/25/20 25 03/26/2025 CBC WITH DIFFE RENTI AL/PL ATELE T eos 0 % not estab. normal Not Available [facility] ([facility]) [address] [facility], [place], [address], 03/26/2025 07:50:33 03/25/20 25 03/26/2025 CBC WITH DIFFE RENTI AL/PL ATELE T basos 1 % not estab. normal Not Available [facility] ([facility]) [address] [facility], [place], [address], 03/26/2025 07:50:33 03/25/20 25 03/26/2025 CBC WITH DIFFE RENTI AL/PL ATELE T immature cells [employer] Not Available [facility]) [address] [place], [address], 03/26/2025 07:50:33 03/25/20 25 03/26/2025 CBC WITH DIFFE RENTI AL/PL ATELE T neutrophils (absolute) 4.9 x10e3 /uL 1.4-7. 0 normal Not Available [facility] ([facility]) [address] [place], [address], 03/26/2025 07:50:33 03/25/20 25 03/26/2025 CBC WITH DIFFE RENTI AL/PL ATELE T lymphs (absolute) 1.8 x10e3 /uL 0.7-3. 1 normal Not Available [facility] ([facility]) [address] [facility], [place], [address], 03/26/2025 07:50:33 03/25/2003/26/2025 CBC WITH DIFFE RENTI AL/PL ATELE T monocytes(ab solute) 1.0 x10e3 /uL 0.1-0. 9 above high normal Not Available [facility] ([facility]) [address] [place], [address], 03/26/2025 07:50:33 03/25/20 25 03/26/2025 CBC WITH DIFFE RENTI AL/PL ATELE T eos (absolute) 0.0 x10e3 /uL 0.0-0. 4 normal Not Available [facility] ([facility]) [address] [place], [address], 03/26/2025 07:50:33 03/25/20 25 03/26/2025 CBC WITH DIFFE RENTI AL/PL ATELE T baso (absolute) 0.0 x10e3 /uL 0.0-0. 2 normal Not Available [facility] ([facility]) [address] [place], [address], 03/26/2025 07:50:33 03/25/20 25 03/26/2025 CBC WITH DIFFE RENTI AL/PL ATELE T immature granulocytes 1 % not estab. Not Available [facility] ([facility]) [address] [place], [address], 03/26/2025 07:50:33 03/25/20 25 03/26/2025 CBC WITH DIFFE RENTI AL/PL ATELE T immature grans (abs) 0.0 x10e3 /uL 0.0-0. 1 Not Available [facility] ([facility]) [address] [facility], [place], [address], 03/26/2025 07:50:33 03/25/20 25 03/26/2025 CBC WITH DIFFE RENTI AL/PL ATELE T NRBC [employer] Not Available [facility] ([facility]) [address] [facility], [place], [address], 03/26/2025 07:50:33 03/25/20 25 03/26/2025 CBC WITH DIFFE RENTI AL/PL ATELE T hematology comments: [employer] Not Available [facility] ([facility]) [address] [facility], [place], [address], 03/26/2025 07:50:33 03/25/20 25 03/26/2025 COMP. METAB OLIC PANEL (14) glucose 90 mg/dL 70-99 normal Not Available [facility] ([facility]) [address] [facility], [place], [address], 03/26/2025 07:50:33 03/25/20 25 03/26/2025 COMP. METAB OLIC PANEL (14) BUN 9 mg/dL 6-24 normal Not Available [facility] ([facility]) [address] [facility], [place], [address], 03/26/2025 07:50:33 03/25/20 25 03/26/2025 COMP. METAB OLIC PANEL (14) creatinine 0.73 mg/dL 0.76-1 .27 below low normal Not Available [facility] ([facility]) [address] [facility], [place], [address], 03/26/2025 07:50:33 03/25/20 25 03/26/2025 COMP. METAB OLIC PANEL (14) eGFR 109 mL/mi n/1.7 3 >59 normal Not Available [facility] ([facility]) [address] [facility] [place], [address], 03/26/2025 07:50:33 03/25/20 25 03/26/2025 COMP. METAB OLIC PANEL (14) BUN/creatini ne ratio 12 9-20 normal Not Available [facility] ([facility]) [address] [facility] [place], [address], 03/26/2025 07:50:33 03/25/20 25 03/26/2025 COMP. METAB OLIC PANEL (14) sodium 131 mmol/ L 134-14 4 below low normal Not Available [facility] ([facility]) [address] [facility] [place], [address], 03/26/2025 07:50:33 03/25/20 25 03/26/2025 COMP. METAB OLIC PANEL (14) potassium 3.9 mmol/ L 3.5-5. 2 normal Not Available [facility] ([facility]) [address] [facility] [place], [address], 03/26/2025 07:50:33 03/25/20 25 03/26/2025 COMP. METAB OLIC PANEL (14) chloride 92 mmol/ L 96-106 below low normal Not Available [facility] ([facility]) [address] [facility] [place], [address], 03/26/2025 07:50:33 03/25/20 25 03/26/2025 COMP. METAB OLIC PANEL (14) carbon dioxide, total 22 mmol/ L 20-29 normal Not Available [facility] ([facility]) [address] [facility] [place], [address], 03/26/2025 07:50:33 03/25/20 25 03/26/2025 COMP. METAB OLIC PANEL (14) calcium 9.3 mg/dL 8.7-10 .2 normal Not Available [facility] ([facility]) [address] [place], [address], 03/26/2025 07:50:33 03/25/20 25 03/26/2025 COMP. METAB OLIC PANEL (14) protein, total 6.6 g/dL 6.0-8. 5 normal Not Available [facility] ([facility]) [address] [facility] [place], [address], 03/26/2025 07:50:33 03/25/20 25 03/26/2025 COMP. METAB OLIC PANEL (14) albumin 4.5 g/dL 3.8-4. 9 normal Not Available [facility] ([facility]) [address] [facility] [place], [address], 03/26/2025 07:50:33 03/25/20 25 03/26/2025 COMP. METAB OLIC PANEL (14) globulin, total 2.1 g/dL 1.5-4. 5 Not Available [facility] ([facility]) [address] [facility] [place], [address], 03/26/2025 07:50:33 03/25/20 25 03/26/2025 COMP. METAB OLIC PANEL (14) bilirubin, total 0.4 mg/dL 0.0-1. 2 normal Not Available [facility] ([facility]) [address] [facility] [place], [address], 03/26/2025 07:50:33 03/25/20 25 03/26/2025 COMP. METAB OLIC PANEL (14) alkaline phosphatase 138 IU/L 44-121 above high normal Not Available [facility] ([facility]) [address] [facility] [place], [address], 03/26/2025 07:50:33 03/25/20 25 03/26/2025 COMP. METAB OLIC PANEL (14) AST (SGOT) 14 IU/L 0-40 normal Not Available [facility] ([facility]) [address] [facility], [place], [address], 03/26/2025 07:50:33 03/25/20 25 03/26/2025 COMP. METAB OLIC PANEL (14) ALT (SGPT) 27 IU/L 0-44 normal Not Available [facility] ([facility]) [address] [facility], [place], [address], 03/26/2025 07:50:33 01/27/20 25 01/20/2025 XR, lumba r spine , 2 view No observ ation record ed. [email or web address] Not Available 2024 08:02:22 01/27/20 25 01/20/2025 XR, cervi she spine , 4 or 5 view No observ ation record ed. [email or web address] Not Available 2024 08:02:22 03/14/20 25 03/14/2025 elect rocar diogr am No observ ation record ed. [email or web address] [facility] [address] [place], [address], 03/14/2025 16:12:24 03/14/20 25 elect rocar diogr am No observ ation record ed. [email or web address] [facility] [address] [facility] [address] [place], [address], 03/15/2025 07:26:23 04/14/20 CT, chest , w/o contr ast No observ ation record ed. [email or web address] [address], [place], [address], 04/15/2025 16:11:11 05/16/20 25 05/16/2025 XR, chest No observ ation record ed. [facility] [address] [facility] [address] [place], [address], 05/16/2025 13:49:51 Result Notes None recorded. Problems Name Problem SNOMED Code Status Onset Date Resolution Date Notes Provider Name and Address Organization Details Recorded Time Suspecte d COVID-19 255153090 Completed 07/17/2021 Removal Reason: Problem added by user [email or web address] from the COVID-19 watch flag Silvana Tolbert null, [place] - [facility] 1 14:03:40 Hyperlip idemia 22046337 Active 2016 Cha Satya null, [place] - [facility] 7 13:29:52 Hyperten sive disorder 15953171 Active 2016 Cha Satya null, [place] - [facility] 7 13:29:58 Acid reflux 419123196 Active 2016 Cha Satya [place], [place] [facility] 7 13:30:06 Hiatal hernia 85267214 Active 2016 Beatrice Guerrero null, [place] - [facility] 7 13:58:30 Nicotine dependen ce 52120165 Active 2017 Lilo Espinosa null, [place] - [facility] 8 15:41:18 Osteoart hritis of knee 214011094 Active 2017 Antony Tao MD [address], [place], [address] , [place] - [facility] 8 16:30:05 Upper respirat ory infectio n 95949586 Completed 201709/18/2018 Annette Ena null, [place] - [facility] 8 12:54:04 Chronic back pain 228453246 Active 2019 Antony Tao MD [address], [place], [address] , [place] [facility] 0 13:46:24 Degenera tion of lumbar interver tebral disc 26438962 Active 2019 Antony Tao MD [address], [place], [address] , [place] - [facility] 0 11:48:59 Headache 21134418 Completed 202001/20/2023 Annette Mathias RN [address], [place], [address] , [place] - [facility] 3 09:19:08 Insect bite - wound 682947481 Completed 202012/05/2021 Antony Tao MD [address], [place], [address] , [place] [facility] 2 17:03:40 Cellulit is 584050690 Completed 202012/05/2021 Antony Tao MD [address], [place], [address] , [place] [facility] 2 17:03:14 Chest pain 97537292 Completed 202101/20/2023 Michael Carpenter, CLIENT SERVICE SUPERVISOR [address], [place], [address] , [place] [facility] 5 13:41:05 Spasm of back muscles 243242332 Active 2023 Tj Muniz MD [address], [place], [address] , [place] [facility] 4 09:39:30 Chest pain 74528200 Active 2024 Michael Carpenter, CLIENT SERVICE SUPERVISOR [address], [place], [address] , [place] [facility] 5 13:41:05 Hyponatr emia 48086948 Active 2024 Sherrie Velazquez, CLIENT SERVICE SUPERVISOR [address], [place], [address] , [place] [facility] 5 11:04:44 Hematocr it - PCV level - finding 988970539 Active 2024 Sherrie Velazquez APRN [address], [place], [address] , [place] [facility] 5 11:05:15 Pneumoni a 282334029 Active 2024 Sherrie Velazquez APRN [address], [place], [address] , [place] [facility] 5 12:28:14 Mediasti nal lymphade nopathy 81131795 Active 2024 Sherrie Velazquez APRN [address], [place], [address] , [place] [facility] 5 12:31:00 Alkaline phosphat ase above referenc e range 002149496 Active 2024 Sherrie Velazquez, CLIENT SERVICE SUPERVISOR [address], [place], [address] , [place] - [facility] 5 13:02:45 Platelet count above referenc e range 733603148 Active 2024 Sherrie Velazquez, CLIENT SERVICE SUPERVISOR [address], [place], [address] , [place] - [facility] 5 13:03:15 CT of chest abnormal 38392772933 420090 Active 2024 Allison Karina, CLIENT SERVICE SUPERVISOR [address], [place], [place], [address] , [place] - [facility] 5 09:30:26 Problem Notes None recorded. Procedures Surgical History Date Name Laterality Status Provider Name and Address Organization Details Recorded Time 03/25 Medication Reconcilliation completed Humza Menjivar [place] - [facility] 5 10:39:25 01/28 Joint Injection completed Tj Muniz MD [address], [place], [address] , [place] - [facility] 5 14:05:56 12/21 Joint Injection completed Tj Muniz MD [address], [place], [address] , [place] - [facility] 5 18:08:41 09/02 Joint Injection completed Tj Muniz MD [address], [place], [address] , [place] - [facility] 4 12:10:57 05/23 [...] - [facility] 0 09:29:01 07/13 esophagogastroduodenoscopy completed Gabriel on [place] - [facility] 2 10:49:17 [...] Name and Address Organization Details Recorded Time 24125 Substance with sulfonami de structure and antibacte rial mechanism of action (substanc e) medicatio n hives Not available Not available 01/05/2018 74994 8003 SNOMED Beatrice Yolanda null, [place] - [...] Not Available Not Available Not Available methocarb liliya 750 mg tablet Take 1 tablet every [...] Updated DateTime 5 182.88 cm 29.7 kg/m2 04713.7 3 g 97 % 97 % 97.7 [...] Updated DateTime 5 182.88 cm 29.1 kg/m2 99759.5 7 g 98 /min 97.8 [degF] 97 [...] Updated DateTime 5 182.88 cm 28.9 kg/m2 19850.5 7 g 97.7 [degF] 78 /min 97 % 97 % 18 /min 0 110/72 mm[Hg] Allison Otto [place] - [facility] 5 10:39:20 Date Recorded Body height Body mass index (BMI) Body weight Heart rate Oxygen saturation Oxygen saturation in Arterial blood by Pulse oximetry Respiratory rate Pain severity - 0-10 verbal numeric rating [Score] - Reported Systolic And Diastolic Provider Name and Address Organization Details Last Updated DateTime 5 182.88 cm 29.2 kg/m2 11318.3 6 g 74 /min 96 % 96 % 18 /min 0 102/70 mm[Hg] Annette Sutherland [place] - [facility] 5 09:17:28 Social History Question Answer Notes LastModified by Organizat ion Details LastModified Time Tobacco Smoking Status Current Every Day Smoker Tessy mac [place] - [facility] 01/22/2024 13:25:00 Do You Have An Advance Directive? No [email or web address] Information not available 03/11/2017 Are You Blind Or Do You Have Difficulty Seeing? No Information not available 07/24/2023 Is Blood Transfusion Acceptable In An Emergency? Yes Information not available 07/24/2023 What Is Your Level Of Caffeine Consumption? Moderate [email or web address] Information not available 03/11/2017 How Much Tobacco Do You Chew? None Information not available 03/11/2017 Are You Deaf Or Do You Have Serious Difficulty Hearing? No [email or web address] Information not available 03/11/2017 What Type Of Diet Are You Following? REGULAR Information not available 07/24/2023 Which Illicit Or Recreational Drugs Have You Used? None [email or web address] Information not available 03/11/2017 What Is The Highest Grade Or Level Of School You Have Completed Or The Highest Degree You Have Received? [id number] Information not available 07/24/2023 Swimming/diving Yes Informati [...] available 12/02/2023 What Is Your Relationship Status? [email or web address] Information not available 03/11/2017 Do You Use [...] Age Did You Start Smoking Tobacco? 20 [email or web address] Information not available 02/10/2020 Are You Passively Exposed To Smoke? Yes [email or web address] Information no t available 03/11/2017 How Much Tobacco Do You Smoke? 0.25 PPD [email or web address] Information not available 07/27/2024 General Stress Level Medium Information not available 07/24/2023 Do You Use Sunscreen Routinely? Yes [email or web address] Information not available 03/11/2017 Has Tobacco Cessation [...] use any illicit or recreational drugs? No [email or web address] Information not available 04/25/2022 Do you or have you ever used any other forms of tobacco or nicotine? No Information not available 07/24/2023 What is your level of alcohol consumption? Occasional [email or web address] Information not available 03/11/2017 Do you or have you ever used smokeless tobacco? Never used smokeless tobacco [email or web address] Information not available 02/10/2020 Are you currently employed? No Information not available 07/24/2023 Are you able to walk independently without assistance or assistive devices? [email or web address] Information not available 07/24/2023 Do you have difficulty doing errands alone? No Information not available 07/24/2023 Are you able to care for yourself independently? 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 No Information not available 07/24/2023 Do you or have you ever used e-cigarettes or vape? Never used electronic cigarettes [email or web address] Information not available 02/10/2020 What is your exercise level? Occasional [email or web address] Information not available 03/11/2017 Mental Status Question [...] Y Acid Reflux (GERD) Y Hyperlipidemia Y Hypertension Y Depression Y Asthma Y Immunizations Vaccine Type Date Status Note Provider Nam e and Address Organization Details Recorded Time influenza, unspecified formulation 2 completed Not Available [facility] 12/02/2023 09:48:22 Tdap 0 completed Not Available [facility] 12/02/2023 09:48:22 Tdap 3 completed Antony Tao MD [facility] [address], [place], [address], [place] - [facility] 05/29/2023 09:30:18 Td (adult), [...] ICD10 Code Diagnosis IMO Codes Diagnosis Note [id number] Beatrice Guerrero APRN [facility] [address] [place] [address] 03/11/2017 13:21:51 03/11/2017 14:37:17 Body mass index 25-29 - overweight 180728691 Z68.29 Chest pain 41171097 R07. 9 Hypertensive disorder 38 442231 I10 Hyperlipidemia 44731800 E78.5 Cough 54980199 R05 Fatigue 13176835 R53.83 [id number] Beatrice Guerrero [address] [address] 12/29/2017 16:16:58 12/29/2017 16:48:41 Body mass index 25-29 - overweight 209586740 Z68.27 Hiatal hernia 89679274 K 44.9 Acid reflux 652024237 K2 1.9 Hypertensive disorder 38 988540 I10 Hyperlipidemia 73733781 E78.5 Cellulitis of foot 82180 6007 L03.157 [id number] Beatrice Guerrero [address] [place] [address] 01/05/2018 13:52:41 01/05/2018 14:53:09 Headache 80514177 R51 Cellulitis of foot 72999 6007 L03.498 [id number] Beatrice Guerrero [address] [place] [address] 01/22/2018 16:14:56 01/22/2018 17:40:14 Pain of joint 27472327 M25.50 Cellulitis of foot 09028 6007 L03.119 Hypertensive disorder 38 610195 I10 [id number] Antony Tao MD [address] [place] [address] 04/09/2018 13:22:20 04/09/2018 15:49:11 Body mass index 25-29 - overweight 359644402 Z68.27 Overweight 331925045 E66 .3 Osteoarthr itis of knee 553329224 M17.0 Hypertensive disorder 38 511067 I10 Hyperlipidemia 72723049 E78.5 Bilateral knee pain 1187 519168 3404206 M25.561 M25.562 Low back pain 989304759 M54.5 [id number] Antony Tao MD [address] [address] 06/24/2018 14:45:20 06/24/2018 16:59:32 Nicotine dependence 88125367 F17.200 Bilateral knee pain 1187 948494 9892493 M25.561 M25.562 Hypertensive disorder 38 187373 I10 Hyperlipidemia 66822945 E78.5 Osteoarthr itis of knee 438730683 M17.0 Low back pain 858216432 M54.5 [id number] Antony Tao MD [address] [place] [address] 07/22/2018 10:37:45 07/22/2018 11:47:22 Body mass index 25-29 - overweight 520287388 Z68.27 Overweight 001188476 E66 .3 Upper resp iratory infection 52988875 J06.9 Osteoarthr itis of knee 602345418 M17.0 [id number] Antony Tao MD [address] [place] [address] 09/17/2018 14:23:55 09/17/2018 16:11:59 Increased frequency of urination 561885884 R35.0 Prostatitis 9012380 N41. 9 Osteoarthr itis of knee 596423604 M17.0 Hypertensive disorder 38 548597 I10 Hyperlipidemia 34242756 E78.5 Acid reflux 651466434 K2 1.9 [id number] Antony Tao MD [address] [place] [address] 10/30/2018 15:24:57 10/30/2018 17:14:19 Low back pain 202364972 M54.5 Constipation 11121050 K5 9.00 Osteoarthr itis of knee 339673234 M17.0 Hypertensive disorder 38 459618 I10 Hyperlipidemia 12841973 E78.5 Acid reflux 566949082 K2 1.9 Hiatal hernia 90704639 K 44.9 [id number] Beatrice Guerrero APRN [address] [place] [address] 04/26/2019 14:57:35 04/26/2019 15:59:28 Cellulitis of lower limb 417108860 L03.119 Costal chondritis 285663 04 M94.0 Cramp in lower limb 4499 06720 R25.2 Restless l egs syndrome 33798616 G25.81 Acid reflux 020966568 K2 1.9 [id number] Beatrice Guerrero [address] [place] [address] 06/01/2019 14:19:00 06/01/2019 15:10:17 Hypertensive disorder 04710870 I10 Eczema 16953057 L30.9 Acid reflux 212009324 K2 1.9 [id number] Antony Tao MD [address] [place] [address] 11/26/2019 08:11:20 11/26/2019 10:13:53 Hypertensive disorder 27296915 I10 Upper resp iratory infection 88978875 J06.9 [id number] Nilda Honorio [address] [address] 12/08/2019 10:10:28 12/08/2019 11:49:49 Cough 24977741 R05 Upper resp iratory infection 21488337 J06.9 [id number] Antony Tao MD [address] [place] [address] 02/10/2020 09:17:29 02/10/2020 16:33:03 Body mass index 25-29 - overweight 765465142 Z68.27 Hand pain 08999618 M79.6 41 Pain in right knee 80992 22915 77732 M25.561 Primary er ectile dysfunction 923192827 N52.9 Acid reflux 441085987 K2 1.9 Hyperlipidemia 15267009 E78.5 Hypertensive disorder 38 882197 I10 Osteoarthr itis of knee 466969962 M17.0 Chronic back pain 310417 002 G89.29 [id number] Antony Tao MD [address] [place] [address] 05/31/2020 15:12:13 05/31/2020 16:59:14 Chronic back pain 616482946 G89.29 Low back pain 857377282 M54.5 Hyperlipidemia 92165063 E78.5 Hypertensive disorder 38 942611 I10 Nicotine dependence 5629 4008 F17.200 Osteoarthr itis of knee 809460707 M17.0 Lumbar radiculopathy 128 519808 M54.16 [id number] Antony Tao MD [address] [place] [address] 07/14/2020 15:55:14 07/14/2020 17:04:08 Chronic back pain 308741489 G89.29 Osteoarthr itis of knee 175137354 M17.0 Hypertensive disorder 38 850261 I10 Hyperlipidemia 36783818 E78.5 [id number] Antony Tao MD [address] [place] [address] 08/16/2020 14:14:53 08/16/2020 16:57:16 Chronic back pain 800981895 G89.29 Hyperlipidemia 27021744 E78.5 Hypertensive disorder 38 768802 I10 Nicotine dependence 5629 4008 F17.200 Degenerati on of lumbar intervertebral disc 21973507 M51.36 [id number] Antony Tao MD [address] [place] [address] 05/18/2021 14:47:08 05/18/2021 17:08:58 Degeneration of lumbar intervertebral disc 59131965 M51.36 Chronic back pain 817479 002 G89.29 Osteoarthr itis of knee 536060101 M17.0 Nicotine dependence 5629 4008 F17.200 Hypertensive disorder 38 745777 I10 Hyperlipidemia 00057756 E78.5 Acid reflux 559811478 K2 1.9 Hiatal hernia 19911546 K 44.9 Headache 93035716 R51.9 [id number] Antony Tao MD [address] [place] [address] 06/28/2021 11:14:47 06/28/2021 11:48:01 Headache 60130178 R51.9 Nicotine dependence 5629 4008 F17.200 Chronic back pain 179886 002 G89.29 Bilateral knee pain 1187 179242 4267873 M25.561 M25.562 Degenerati on of lumbar intervertebral disc 06373225 M51.36 Osteoarthr itis of knee 552650722 M17.0 Erectile dysfunction 860 581844 F52.21 Hyperlipidemia 48582685 E78.5 Hypertensive disorder 38 703423 I10 [id number] Nilda OlmedoBON [address] [place] [address] 07/17/2021 09:30:17 07/17/2021 10:25:06 Viral screening 578310474 Z11.52 Upper resp iratory infection 89314513 J06.9 [id number] Antony Tao MD [address] [place] [address] 09/14/2021 13:14:45 09/14/2021 16:39:20 Skin lesion 95722196 L98.9 Wound of skin 803391653 T14.8XXA Chronic back pain 130045 002 G89.29 Degenerati on of lumbar intervertebral disc 65684637 M51.36 Hyperlipidemia 58077961 E78.5 Hypertensive disorder 38 447792 I10 Cellulitis 451709573 L03 .90 [id number] Antoyn Tao MD [address] [place] [address] 09/28/2021 13:43:02 09/28/2021 15:54:36 Cellulitis 976989773 L03.90 Insect bite - wound 2764 11845 T14.8XXD Itching of skin 95388060 0 L29.9 Chronic back pain 316133 002 G89.29 Degenerati on of lumbar intervertebral disc 90538488 M51.36 Hyperlipidemia 14037797 E78.5 Osteoarthr itis of knee 569114266 M17.0 [id number] Antony Tao MD [address] [place] [address] 12/05/2021 14:08:35 12/05/2021 16:20:34 Headache 49306017 R51.9 Degenerati on of lumbar intervertebral disc 04289381 M51.36 Chronic back pain 718082 002 G89.29 Pruritic rash 37822949 L 28.2 Acid reflux 036159033 K2 1.9 Hyperlipidemia 89391350 E78.5 Hypertensive disorder 38 932187 I10 Osteoarthr itis of knee 041151727 M17.0 [id number] Antony Tao MD [address] [address] 01/03/2022 14:50:51 01/03/2022 17:13:59 Headache 00288473 R51.9 Degenerati on of lumbar intervertebral disc 17918113 M51.36 Chronic back pain 325836 002 G89.29 Osteoarthr itis of knee 190884925 M17.0 Hypertensive disorder 38 328330 I10 Nicotine dependence 5629 4008 F17.200 Hyperlipidemia 06969215 E78.5 Acid reflux 470707730 K2 1.9 Fatigue 27418431 R53.83 Hiatal hernia 43841080 K 44.9 [id number] Antony Tao MD [address] [place] [address] 01/11/2022 14:55:30 01/11/2022 16:43:00 Headache 95494733 R51.9 Degenerati on of lumbar intervertebral disc 22506423 M51.36 Chronic back pain 960946 002 G89.29 Osteoarthr itis of knee 354047720 M17.0 Nasal congestion 3289003 0 R09.81 Body mass index 25-29 - overweight 746108891 Z68.27 Vitamin D deficiency 347 18539 E55.9 [id number] Antony Tao MD [address] [place] [place] [address] 03/01/2022 11:05:16 03/01/2022 13:05:35 Chronic back pain 517169297 G89.29 Hyperlipidemia 91833472 E78.5 Hypertensive disorder 38 654593 I10 Degenerati on of lumbar intervertebral disc 17030612 M51.36 [id number] Antony Tao MD [address] [place] [address] 03/07/2022 08:38:49 03/07/2022 09:27:49 Chronic back pain 129302239 G89.29 Degenerati on of lumbar intervertebral disc 78728064 M51.36 Hyperlipidemia 77660064 E78.5 Hypertensive disorder 38 561670 I10 [id number] Antony Tao MD [address] [place] [place] [address] 04/25/2022 09:34:07 04/25/2022 11:11:08 Degeneration of lumbar intervertebral disc 48046679 M51.36 Headache 28047161 R51.9 Chronic back pain 626271 002 G89.29 Osteoarthr itis of knee 038920719 M17.0 Nicotine dependence 5629 4008 F17.200 Hypertensive disorder 38 209830 I10 Hyperlipidemia 93361543 E78.5 Acid reflux 599871740 K2 1.9 Anxiety 22805005 F41.9 Mild depression 13491556 3 F32.0 Abnormal gait 05140283 R 26.9 handicappe d form completed for patient today, see copy in chart [id number] Antony Tao MD [address] [place] [address] 05/23/2022 13:06:31 05/23/2022 14:50:07 Chest pain 08359728 R07.9 Hypertensive disorder 38 234860 I10 Dizziness 167617569 R42 Chronic back pain 508272 002 G89.29 Aftercare 362185762 Z51. 89 Acid reflux 719876988 K2 1.9 Hyperlipidemia 43472756 E78.5 [id number] Antony Tao MD [address] [place] [place] [address] 06/07/2022 09:34:25 06/07/2022 11:23:56 Body mass index 25-29 - overweight 940805390 Z68.27 27.1 Headache 26732672 R51.9 Degenerati on of lumbar intervertebral disc 01307026 M51.36 Chronic back pain 768061 002 G89.29 Anxiety 81859136 F41.9 [id number] Tj Muniz MD [address] [place] [address] 10/22/2022 14:44:48 10/22/2022 16:19:18 Acute laryngitis 6233141 J04.0 [id number] Antony Tao MD [facility] [address] [place], [place] [address] [place] [address] 01/31/2023 09:23:49 01/31/2023 11:41:57 General examination of patient 459820973 Z00.00 Screening for malignant neoplasm of prostate 438657075 Z12.5 Endocrine/ metabolic screening 808275424 Z13.228 Exercises education, guidance, and counseling 338579774 Z71.82 The patient was advised to continue a healthy diet and exercise regularly. Dietary ma nagement surveillance 596878318 Z71.3 Hyperlipidemia 09902018 E78.5 Hypertensive disorder 38 503484 I10 Chronic back pain 316882 002 G89.29 [id number] Antony Tao MD [address] [place] [place] [address] 02/20/2023 14:06:23 02/21/2023 14:32:49 Chronic hoarseness 0295301350 105 R49.0 [id number] Antony Tao MD [address] [place] [address] 05/29/2023 08:43:58 05/29/2023 09:19:01 General examination of patient 126270929 Z00.00 Hyperlipid emia screening 994496194 Z13.220 Screening for malignant neoplasm of prostate 552676653 Z12.5 Endocrine/ metabolic screening 218277589 Z13.228 Exercises education, guidance, and counseling 890887278 Z71.82 The patient was advised to continue a healthy diet and exercise regularly. Dietary ma nagement surveillance 423471519 Z71.3 Administra tion of diphtheria, pertussis, and tetanus vaccine 465299268 Z23 Body mass index 25-29 - overweight 714808671 Z68.28 28.1 Overweight 981953822 E66 .3 Tobacco user 766708013 Z 72.0 Hyperlipidemia 10342124 E78.5 Hypertensive disorder 38 057871 I10 Acid reflux 867545761 K2 1.9 Chronic back pain 477752 002 G89.29 [id number] Tj Muniz MD [address] [place] [address] 07/24/2023 14:56:29 07/24/2023 15:22:28 Nausea and vomiting 97547608 R11.2 [id number] Tj Muniz MD [address] [place] [address] 11/18/2023 10:56:34 11/18/2023 11:40:15 Upper respiratory infection 50931069 J06.9 [id number] Tj Muniz MD [address] [place] [address] 12/02/2023 09:46:30 12/02/2023 10:27:43 Hypertensive disorder 91746631 I10 Chronic, Stable at this time; no changes to current regimen. Follow up as below. Anxiety 09369774 F41.9 Chronic, Stable at this time; no changes to current regimen. Follow up as below. Acid reflux 872636680 K2 1.9 Chronic, Stable at this time; no changes to current regimen. Follow up as below. Essential hypertension 17804862 I10 Chronic, Stable at this time; no changes to current regimen. Follow up as below. Hyperlipidemia 16394038 E78.5 Chronic, Stable at this time; no changes to current regimen. Follow up as below. [id number] Tj Muniz MD [address] [place] [address] 01/22/2024 13:10:23 01/22/2024 13:44:19 Body mass index 25-29 - overweight 062631434 Z68.28 Overweight 962355411 E66 .3 Viral screening 58557008 4 Z11.59 Upper resp iratory infection 89747431 J06.9 Erectile dysfunction 860 988625 F52.21 [id number] Tj Muniz MD [address] [place] [address] 07/01/2024 10:49:38 07/01/2024 11:18:43 Essential hypertension 92667043 I10 Chronic, Stable at this time; no changes to current regimen. Follow up as below. Hypertensive disorder 38 514590 I10 Chronic, Stable at this time; no changes to current regimen. Follow up as below. Body mass index 30+ - obesity 167916401 Z68.30 Obesity 758497842 E66.9 [id number] Tj Muniz MD [address] [place] [address] 07/27/2024 13:10:36 07/27/2024 14:14:24 Body mass index 25-29 - overweight 777955947 Z68.27 Tinea corporis 28992476 B35.4 Plaque psoriasis 3870715 09 L40.0 [id number] Tj Muniz MD [address] [place] [address] 08/31/2024 08:53:24 08/31/2024 09:20:47 Pain in bilateral legs 8780264810 3880427 M79.604 M79.605 Pt will schedule for injection Hypertensive disorder 38 217542 I10 Chronic, Stable at this time; no changes to current regimen. Follow up as below. Hyperlipidemia 79068633 E78.5 Chronic, Stable at this time; no changes to current regimen. Follow up as below. [id number] Tj Muniz MD [address] [place] [address] 09/02/2024 09:16:20 09/02/2024 09:31:41 Pain of right knee joint 3637878423 81431 M25.475 [id number] Tj Muniz MD [address] [place] [place] [address] 11/15/2024 14:58:23 11/15/2024 15:36:04 Upper respiratory infection 35943399 J06.9 Screening for malignant neoplasm of colon 405859469 Z12.11 [id number] Tj Muniz MD [address] [place] [place] [address] 12/21/2024 16:29:55 12/21/2024 17:04:34 Pain of left knee joint 6605247459 17534 M25.562 Erectile dysfunction 860 780695 F52.21 refill requested [id number] Tj Muniz MD [address] [place] [place] [address] 01/10/2025 15:54:43 01/10/2025 16:24:25 Spasm of back muscles 999707929 M62.830 refill requested Pain of le ft knee joint 8063203966 12581 M25.729 [id number] Tj Muniz MD [address] [place] [place] [address] 01/18/2025 15:55:11 01/18/2025 16:25:01 Upper respiratory infection 58055075 J06.9 [id number] Tj Muniz MD [address] [place] [address] 01/28/2025 12:51:44 01/28/2025 13:13:25 Pain of left knee joint 5435029885 73445 M25.398 [id number] Michael Carpenter APRN [address] [place] [address] 03/14/2025 13:19:02 03/15/2025 07:42:30 Chest pain 52867068 R07.9 R06.00 73076657 PE noted with flushed face, mild labored [...] he was going to his daughter in [place] who will take him on to ER. He reports that he plans on going to [facility] where Dr. Cm practices, advised again the nearest ER is in [facility]. Patient is high risk for cardiovasc ular compromise . Patient agreeable to go to ER. F/U as needed. [id number] Sherrie Velazquez [facility] [address] [place], [place] [address] [place] [address] 03/25/2025 10:11:57 03/25/2025 11:13:[address] of chest completed at [facility]. Results reviewed. Diffuse left lung pneumonia noted.Will plan for f/u chest CT in 2 weeks to evaluate for resolution . Seen in department 37307 1009 Z76.89 3995469855 Hyponatremia 92718722 E8 7.1 02905 Emergency room lab results reviewed. Sodium of 131 noted Hematocrit - PCV level - finding 173692440 D64.9 [id number] Emergency room lab results reviewed. Hematocrit of 39.9 noted Mediastina l lymphadenopathy 32155039 R59.[address] of chest completed at [facility]. Results reviewed. 1.2 cm prominent mediastina l lymph node noted.Will plan for f/u chest CT in 2 weeks to evaluate for resolution . [id number] Allison Collins [place] [address] [place] [address] 05/16/2025 09:03:07 05/16/2025 09:38:35 Nicotine dependence 86535371 F17.200 67772536 Pneumonia 746814407 J18. 9 265851801 Overweight 376593920 E66 .3 Overweight in adulthood with body mass index of 25 or more but less than [address] of chest abnormal 678 4502937 3057101 R93.89 [id number] Health Concerns Section Related Observation LastModified by Organization Detai ls LastModified Time None Recorded Concern Status LastModified by Organization Details LastModified Time None Recorded Advance Directives Directive N: Payers Insurance Date Sequence Insurance Name Policy Number Policy Collado Covered Member ID Collado Member ID Guarantor Name 05/13/2025 1 [facility] (MEDICAID REPLACEMENT - HMO) Antony Narayanan [id number] Antony Narayanan 08/13/2023 2 MEDICAID-[facility] CHO[facility] - FFS/TRADITIONA L Antony Narayanan [id number] Antony Narayanan 05/13/2025 [place] [facility] [place]ICAID[place] Antony Narayanan [id number] Antony Narayanan 08/03/2025 [employer] (MEDICARE REPLACEMENT/AD VANTAGE - PPO) Antony Narayanan [id number] Antony Narayanan 08/13/2023 1 [facility] [id number] Antony Narayanan [id number] Antony Narayanan 08/13/2023 2 [facility] (PPO) [id number] Antony Amanda Lady [id number] Antony Narayanan 08/13/2023 1 [facility] [id number] Antony Narayanan [id number] Antony Narayanan 03/18/2022 1 UNSPECIFIED REMIT PAYOR Antony Narayanan 08/13/2023 2 [employer] (PPO) Antony Narayanan [id number] Antony Narayanan Notes Date Note Type Note [...] contacts. Tj Muniz MD [address], [place], [address], [place] [facility] 01/18/2025 17:47:00 5 text/html [...] deficits. Tj Muniz MD [address], [place], [address], [place] [facility] 02/01/2025 14:06:06 5 text/html [...] He denies any n/v, diarrhea. Michael Carpenter, CLIENT SERVICE SUPERVISOR [address], [place], [address], [place] [facility] 03/14/2025 16:21:11 5 text/html Emergency Department Follow-Up RecordReported by PatientEmergency Room Follow-Up RecordFor discharge information, patient reportsname of hospital/urgent care patient was seen: (),patient presented to hospital/urgent care on or around: [...] presents for emergency room f/u. Sherrie Velazquez, CLIENT SERVICE SUPERVISOR [address], [place], [address], [place] [facility] 03/25/2025 12:31:19 5 text/html ROS as noted in the HPI Presents for follow up regarding recent CT chestFeeling wellNo chest pain, shortness of breath, dizziness, lightheadedness, syncope, palpitations or edema.No fever, chills or cough.Follows with pain management for gabapentin and opiateCompliant with medicationsSmoking 0.5 pack per weekDenies alcohol and illicit drug usage Allison Collins, CLIENT SERVICE SUPERVISOR [address], [place], [address], [place] [facility] 07/31/2025 15:19:12
--- OUTSIDE RECORDS SUMMARY | 2025-10-04 18:12 | XMS_ITS | Clinical Summary ---
Author Organization [facility] Address [address] [place] [address] [place] [address] Care Team Providers Care Alternative Education Teacher Name Role Phone Antony Tao MD Primary Care Provider [phone] Social History Tobacco Use Types Packs/Day Years Used Date Smoking Tobacco: Never Assessed Food Insecurities Answer Date Recorded Worried about running out of food Not on file 12/09/2023 Food Bought Not on file 12/09/2023 Housing/Utilities Answer Date Recorded Worried about losing home Not on file 2023 Stayed outside house Not on file 12/09/2023 Unable to get utilities Not on file 12/09/19 24 Interpersonal Safety Answer Date Record ed Feel physically or emotionally unsafe where curr ently live Not on file 12/09/2023 Harm by anyone Not on file 12/09/2023 Emotionally Harmed Not on file 12/09/2023 Transportation Answer Date Recorded Worried about transportation Not on file Utilities Answer Date Recorded Worried about losing home Not on file 2023 Stayed outside house Not on file 03/22/2024 Unable to get utilities Not on file 03/22/20 24 Sex and Gender Information Value Date Recorded Sex Assigned at Not on file Legal Sex Male 10:52 AM EDT Gender Identity Not on file Sexual Orientation Not on file Plan of Treatment Health Maintenance Due Date Last Done Comments DTap,Tdap,and Td (1 - Tdap) 01/22/1997 01/21/1997 Colonoscopy 2017 PSA YEARLY 2022 Pneumococcal 50+ (1 of 1 - PCV) 2022 Shingrix (#1) 2022 Influenza Vaccine (#1) 2025 4, 07/29/2012 RSV Vaccine (60+ or ) (1 - 1-dose 75+ series) 2047 HPV Aged Out No longer eligi ble based on patient's age to complete this topic Meningococcal conjugate janey nt 4 (MCV4) Aged Out No longer eligible b ased on patient's age to complete this topic RSV Immunization (<20 months) Aged Out No longer eligible based on patient's age to complete this topic Care Teams Alternative Education Teacher Relationship Specialty Start Date End Date Antony Tao MD PCP - General Family Medicine 06/22/21
[2025-10-04 18:15] LABS: Troponin I < 0.01 ng/ml (0.00-0.034)
[2025-10-04] MEDS: NITROGLYCERIN 800MCG/8ML SYR (CATH LAB) 800 MCG IA (18:43)
[2025-10-04] MEDS: HEPARIN 1,000 UNITS/500ML NS (CATH LAB) 3000 UNIT IV (18:43)
[2025-10-04] MEDS: HEPARIN 1,000 UNITS/ML 10ML VIAL (CATH LAB) 5000 UNIT IV (18:45)
[2025-10-04] MEDS: 0.9 % SODIUM CHLORIDE 500 ML 25 ML IV (18:45)
[2025-10-04] MEDS: VERAPAMIL 2.5MG/ML 2ML VIAL 2.5 MG IV (18:46)
[2025-10-04] MEDS: LIDOCAINE 1% 10ML MDV 10 ML IJ (18:46)
[2025-10-04 18:57] LABS: Hemoglobin A1C 5.9 % (4.0-6.0)
[2025-10-04] MEDS: FENTANYL 100MCG/2ML VIAL 50 MCG IV (19:02)
[2025-10-04] MEDS: MIDAZOLAM HCL 1MG/ML 5ML VIAL 1 MG IV (19:02)
[2025-10-04] MEDS: PRASUGREL 10MG TAB 60 MG PO (19:03)
[2025-10-04] MEDS: IOPAMIDOL-370 (76%);100ML BOTTLE 90 ML IV (19:12)
[2025-10-04 19:14] LABS: CATHL Activated Clotting Time 309 SEC (74-125)
[2025-10-04] MEDS: GABAPENTIN 300MG CAPSULE 300 MG PO (20:57)
[2025-10-04] MEDS: HYDROCODONE/APAP 5/325 MG TABLET 1 TAB PO (20:57)
[2025-10-04] MEDS: BUSPIRONE HCL 10 MG TABLET PO (20:57)
[2025-10-04] MEDS: PANTOPRAZOLE 40MG TABLET 40 MG PO (20:57)
[2025-10-04 21:13] LABS: Troponin I < 0.01 ng/ml (0.00-0.034)
--- NOTE | 2025-10-04 23:07 | PC.NURSE ---
attempted to remove 2 ml of air from radial band at 2004, patient began bleeding, air was replaced. small amounts of air began being removed at 2044 without issues and radial band was removed at 2219, telfa and tegaderm were applied.
[2025-10-05] VITALS (8 sets, daily range): BP systolic 105–127; BP diastolic 64–79; PULSE 70–107; RESP 16–20; TEMP 36.4–37.1; O2SAT 92–96; BMI 29.5
[2025-10-05 05:51] LABS: Hematocrit 39.1 % (42.0-52.0); Hemoglobin 13.4 g/dL (14.1-18.0); Immature Granulocytes % 0.4 %; Mean Corpuscular HGB Conc 34.3 g/dL (31.8-35.4); Mean Corpuscular Hemoglobin 30.2 pg (27.0-31.2); Mean Corpuscular Volume 88.3 fl (80-94); Nucleated Red Blood Cells % 0 %; Platelet Count 300 K/mm3 (142-424); Red Blood Count 4.43 M/mm3 (4.60-6.20); Red Cell Distribution Width-SD 42.9 fL; White Blood Count 5.5 K/mm3 (4.8-10.8)
[2025-10-05 07:43] LABS: Alanine Aminotransferase 25 U/L (12-78); Albumin Level 4.4 g/dl (3.5-5.0); Albumin/Globulin Ratio 1.8 (1.1-1.8); Alkaline Phosphatase 108 U/L (38-126); Anion Gap 9.7 mEq/L (5-15); Aspartate Amino Transferase 28 U/L (17-59); Bilirubin,Total 0.7 mg/dl (0.2-1.3); Blood Urea Nitrogen 8 mg/dl (9-20); Calcium 9.1 mg/dl (8.4-10.2); Carbon Dioxide 28 mmol/L (22.0-30.0); Chloride 97 mmol/L (98-107); Cholesterol 97 mg/dl (140-200); Creatinine Clearance Estimated 149 mL/min (50-200); Creatinine,Serum 0.80 mg/dl (0.66-1.25); Estimated Glomerular Filt Rate 101 ml/min (>60); GFR (African American) 122 ML/MIN (>60); Globulin 2.5 g/dL (1.3-3.2); Glucose 116 mg/dl (74-100); HDL Cholesterol 36 mg/dl (40-60); Magnesium 2.1 mg/dl (1.6-2.3); Potassium 3.7 mmoL/L (3.5-5.1); Sodium 131 mmol/L (136-145); Total Protein,Serum 6.9 g/dl (6.3-8.2); Triglycerides 94 mg/dl (30-150)
[2025-10-05] MEDS: ASPIRIN EC 81MG TABLET 81 MG PO (08:13)
[2025-10-05] MEDS: ATORVASTATIN 40MG TABLET 40 MG PO (08:13)
[2025-10-05] MEDS: BUSPIRONE HCL 10 MG TABLET PO (08:14)
[2025-10-05] MEDS: GABAPENTIN 300MG CAPSULE 300 MG PO (08:14)
[2025-10-05] MEDS: LISINOPRIL/HCTZ 10-12.5MG TABLET 2 EACH PO (08:14)
[2025-10-05] MEDS: AMLODIPINE 10MG TABLET 10 MG PO (08:14)
[2025-10-05] MEDS: PRASUGREL 10MG TAB 10 MG PO (08:57)
--- NOTE | 2025-10-05 10:30 | P.DS_ITS ---
<Statement entered by Daniel Ott MD - 10/05/25 16:08> Agree with plan of care as outlined by the [facility] [employer]. General Admission date:: 10/04/25 Discharge date: 10/05/25 HPI HPI HPI: Mr. Narayanan is a 55-year-old male who presented to his cardiology office today due to continued chest pain over the past few days. He rates it intermittently between 5?7 out of 10. States he has been having the pain since Friday, substernal sharp chest pain and diaphoresis. He states it is woken him up from sleep multiple times. He has a primary medical history of CAD, hypertension, hyperlipidemia, GERD, depression/anxiety, COPD, emphysema. EKG performed in cardiac office showed sinus rhythm with no ST elevation. Patient had a LHC in 06/2024 where he received 1 WINSOME. Patient was sent from the cardiac office to the emergency department for further evaluation of his unstable angina. Patient denies fever, chills, cough, congestion, abdominal pain, urinary symptoms. Endorses smoking daily but states he has cut back, occasional alcohol use, denies drug use. Workup in the emergency department was significant for troponin less than 0.01, proBNP within normal limits, coags normal, CBC unremarkable, CMP shows anion gap of 16.[address] Cm was consulted from the emergency department who recommended admission and and patient be placed on a IV nitroglycerin drip due to continued unstable angina. Hospital Course Hospital Course Hospital Course: Mr. Narayanan is a 55-year-old male who presented to his cardiology office yesterday due to continued chest pain over the past few days. He rates it intermittently between 5?7 out of 10. States he has been having the pain since Friday, substernal sharp chest pain and diaphoresis. He states it is woken him up from sleep multiple times. He has a primary medical history of CAD, hypertension, hyperlipidemia, GERD, depression/anxiety, COPD, emphysema. EKG performed in cardiac office showed sinus rhythm with no ST elevation. Patient had a LHC in 06/2024 where he received 1 WINSOME. Patient was sent from the cardiac office to the emergency department for further evaluation of his unstable angina. Patient denies fever, chills, cough, congestion, abdominal pain, urinary symptoms. Endorses smoking daily but states he has cut back, occasional alcohol use, denies drug use. Workup in the emergency department was significant for troponin less than 0.01, proBNP within normal limits, coags normal, CBC unremarkable, CMP shows anion gap of 16.[address]. Cm was consulted from the emergency department who recommended admission and and patient be placed on a IV nitroglycerin drip due to continued unstable angina. Hospital medicine was called for admission, I agreed to admit the patient. Hospital course was as follows: #Unstable angina #Hypertension #CAD ? Patient has history of LHC with 1 WINSOME. He has known coronary artery disease, currently is prescribed amlodipine 10 mg daily, aspirin 81 mg daily, atorvastatin 40 mg daily, carvedilol 6.25 mg twice daily, lisinopril?HCTZ 1 tab daily. Patient underwent LHC yesterday which showed endothelial dysfunction down LAD and circumflex. Stenting to the midcodominant RCA with 1 WINSOME. Normal EF. Normal LVEDP. Recommendations for continued Effient 10 mg daily and aspirin 81 mg daily along with long-acting antianginal and Ranexa, discussed this with cardiology. Blood pressure is stable and patient denies any chest pain. Cardiology will evaluate the need for long-acting nitrates/Ranexa at follow-up in 1 week. Echocardiogram shows normal BiV systolic function, no significant valvular stenosis or regurgitation, LVEF is calculated at 65%. Day of discharge assessment patient denies any chest pain, shortness of breath. Vitals have remained hemodynamically stable. ?CBC unremarkable, sodium 131, normal kidney function, LDL 47, total cholesterol 97. #Tobacco use disorder: Discussed smoking cessation with patient. He states he smokes occasionally, approximately half to 1 pack/week. #GERD: Continue omeprazole 40 mg daily. #Chronic pain: Continue gabapentin 300 mg 3 times daily, tizanidine 4 mg every 8 hours as needed, and [place] 5/325 mg 3 times daily. #Mood disorder: Continue BuSpar 10 mg 3 times daily and return 150 mg daily. Total time spent on discharge 32 minutes in counseling, documentation, chart review, and direct care with patient. Exam Data for Last 24 hours Vital signs and Labs for Last 24 Hours: Temp Pulse Resp BP Pulse Ox O2 Del Method O2 Flow Rate 98.3 F 100 H 16 127/79 96 Room Air 1 10/05/25 07:33 10/05/25 08:00 10/05/25 07:33 10/05/25 07:33 10/05/25 07:33 10/05/25 07:33 10/05/25 03:00 Laboratory Results - last 24 hr 10/04/25 13:54: WBC 7.4, RBC 4.76, Hgb 14.6, Hct 41.8 L, MCV 87.8, MCH 30.7, MCHC 34.9, RDW 13.2, Plt Count 372, MPV 9.4, Neut % (Auto) 64.6, Lymph % (Auto) 19.8, [place] % (Auto) 13.7 H, Eos % (Auto) 1.2, Baso % (Auto) 0.4, Neut # (Auto) 4.8, Lymph # (Auto) 1.5, [place] # (Auto) 1.0, Eos # (Auto) 0.1, Baso # (Auto) 0.0, PT 10.3, INR 0.92, Sodium 136, Potassium 3.5, Chloride 94 L, Carbon Dioxide 29, Anion Gap 16.5 H, BUN 10, Creatinine 0.80, Estimated Creat Clear 120, Estimated GFR 101, Est GFR ( Amer) 122, Glucose 110 H, Hemoglobin A1c 5.9, Calcium 9.2, Magnesium 2.1, Total Bilirubin 0.5, AST 27, ALT 26, Alkaline Phosphatase 106, Troponin I < 0.01, NT-Pro-B Natriuret Pep 24.6, Total Protein 8.0, Albumin 4.8, Globulin 3.2, Albumin/Globulin Ratio 1.5, TSH 0.63 10/04/25 17:29: Sodium 129 L, Potassium 3.6, Chloride 94 L, Carbon Dioxide 27, Anion Gap 11.6, BUN 9, Creatinine 0.70, Estimated Creat Clear 137, Estimated GFR 118, Est GFR ( Amer) 143, Glucose 110 H, Calcium 9.1, Troponin I < 0.01 10/04/25 20:04: Activated Clotting Time 309 H* 10/04/25 20:29: Troponin I < 0.01 10/05/25 05:40: WBC 5.5 D, RBC 4.43 L, Hgb 13.4 L, Hct 39.1 L, MCV 88.3, MCH 30.2, MCHC 34.3, RDW 13.2, Plt Count 300, MPV 8.9, Neut % (Auto) 69.1, Lymph % (Auto) 17.6, [place] % (Auto) 11.2 H, Eos % (Auto) 1.3, Baso % (Auto) 0.4, Neut # (Auto) 3.8, Lymph # (Auto) 1.0, [place] # (Auto) 0.6, Eos # (Auto) 0.1, Baso # (Auto) 0.0, Sodium 131 L, Potassium 3.7, Chloride 97 L, Carbon Dioxide 28, Anion Gap 9.7, BUN 8 L, Creatinine 0.80, Estimated Creat Clear 149, Estimated GFR 101, Est GFR ( Amer) 122, Glucose 116 H, Calcium 9.1, Magnesium 2.1, Total Bilirubin 0.7, AST 28, ALT 25, Alkaline Phosphatase 108, Total Protein 6.9, Albumin 4.4, Globulin 2.5, Albumin/Globulin Ratio 1.8, Triglycerides 94, Cholesterol 97 L, LDL Cholesterol Direct 47.51 L, VLDL Cholesterol 19, HDL Cholesterol 36 L, Cholesterol/HDL Ratio 2.7 I & O for Last 24 hours: Intake & Output 10/02/25 10/03/25 10/04/25 10/05/25 23:59 23:59 23:59 23:59 Intake Total 980 / 980 Balance 980 / 980 Weight 98.968 kg 98.883 kg Constitutional Constitutional: no acute distress, average body habitus and cooperative *Routine HEENT Exam Head: Present normocephalic Eye: Present EOMI and PERRL ENT: Present mucous membranes moist *Routine Neck Exam Neck: Present supple; Absent lymphadenopathy *Routine Respiratory Exam Respiratory: Present CTA bilaterally *Routine Cardiovascular Exam Cardiovascular: Present RRR *Routine Abdominal Exam Abdominal: Present soft and normoactive bowel sounds; Absent tenderness *Routine Extremities Exam Extremities: Absent cyanosis, clubbing or edema *Routine Skin Exam Skin: Present warm; Absent rash *Routine Neurological Exam Neurological: Present alert and oriented X3 Results Data Completed and Pending Labs on day of discharge: Labs from last 24 hours 10/05/25 10/04/25 10/04/25 05:40 20:29 20:04 WBC 5.5 D RBC 4.43 L Hgb 13.4 L Hct 39.1 L MCV 88.3 MCH 30.2 MCHC 34.3 RDW 13.2 Plt Count 300 MPV 8.9 Neut % (Auto) 69.1 Lymph % (Auto) 17.6 [place] % (Auto) 11.2 H Eos % (Auto) 1.3 Baso % (Auto) 0.4 Neut # (Auto) 3.8 Lymph # (Auto) 1.0 [place] # (Auto) 0.6 Eos # (Auto) 0.1 Baso # (Auto) 0.0 PT INR Activated Clotting Time 309 H* Sodium 131 L Potassium 3.7 Chloride 97 L Carbon Dioxide 28 Anion Gap 9.7 BUN 8 L Creatinine 0.80 Estimated Creat Clear 149 Estimated GFR 101 Est GFR ( Amer) 122 Glucose 116 H Hemoglobin A1c Calcium 9.1 Magnesium 2.1 Total Bilirubin 0.7 AST 28 ALT 25 Alkaline Phosphatase 108 Troponin I < 0.01 NT-Pro-B Natriuret Pep Total Protein 6.9 Albumin 4.4 Globulin 2.5 Albumin/Globulin Ratio 1.8 Triglycerides 94 Cholesterol 97 L LDL Cholesterol Direct 47.51 L VLDL Cholesterol 19 HDL Cholesterol 36 L Cholesterol/HDL Ratio 2.7 TSH 10/04/25 10/04/25 17:29 13:54 WBC 7.4 RBC 4.76 Hgb 14.6 Hct 41.8 L MCV 87.8 MCH 30.7 MCHC 34.9 RDW 13.2 Plt Count 372 MPV 9.4 Neut % (Auto) 64.6 Lymph % (Auto) 19.8 [place] % (Auto) 13.7 H Eos % (Auto) 1.2 Baso % (Auto) 0.4 Neut # (Auto) 4.8 Lymph # (Auto) 1.5 [place] # (Auto) 1.0 Eos # (Auto) 0.1 Baso # (Auto) 0.0 PT 10.3 INR 0.92 Activated Clotting Time Sodium 129 L 136 Potassium 3.6 3.5 Chloride 94 L 94 L Carbon Dioxide 27 29 Anion Gap 11.6 16.5 H BUN 9 10 Creatinine 0.70 0.80 Estimated Creat Clear 137 120 Estimated GFR 118 101 Est GFR ( Amer) 143 122 Glucose 110 H 110 H Hemoglobin A1c 5.9 Calcium 9.1 9.2 Magnesium 2.1 Total Bilirubin 0.5 AST 27 ALT 26 Alkaline Phosphatase 106 Troponin I < 0.01 < 0.01 NT-Pro-B Natriuret Pep 24.6 Total Protein 8.0 Albumin 4.8 Globulin 3.2 Albumin/Globulin Ratio 1.5 Triglycerides Cholesterol LDL Cholesterol Direct VLDL Cholesterol HDL Cholesterol Cholesterol/HDL Ratio TSH 0.63 DS: Diagnosis Discharge Diagnosis (1) Unstable angina: Status: Acute Code(s): I20.0 - Unstable angina (2) HTN (hypertension): Status: Chronic Code(s): I10 - Essential (primary) hypertension Qualifiers: Hypertension type: primary hypertension Qualified Code(s): I10 - Essential (primary) hypertension (3) Coronary artery disease: Status: Acute Code(s): I25.10 - Atherosclerotic heart disease of [place] coronary artery without angina pectoris Qualifiers: Associated angina: without angina Coronary Disease-Associated Artery/Lesion type: [place] artery [place] vs. transplanted heart: [place] heart Qualified Code(s): I25.10 - Atherosclerotic heart disease of [place] coronary artery without angina pectoris (4) Smoker: Status: Chronic Code(s): F17.200 - Nicotine dependence, unspecified, uncomplicated (5) Smoking greater than 30 pack years: Status: Acute Code(s): F17.210 - Nicotine dependence, cigarettes, uncomplicated (6) GERD (gastroesophageal reflux disease): Status: Acute Code(s): K21.9 - Gastro-esophageal reflux disease without esophagitis Meds Home Medications and Allergies Home Medications ?Medication ?Instructions ?Recorded ?Confirmed ?Type amlodipine 10 mg tablet 10 mg PO DAILY 05/28/2209/17 History gabapentin 300 mg capsule 300 mg PO TID 05/28/2210/04 History omeprazole 40 mg capsule,delayed 40 mg PO DAILY 10/04/25 History release lisinopril 20 1 tab PO DAILY #90 tabs 05/1810/04/25 Rx mg-hydrochlorothiazide 25 mg tablet atorvastatin 40 mg tablet 40 mg PO DAILY #90 tabs 05/1910/04/25 Rx hydrocodone 5 mg-acetaminophen 325 1 tab PO TID 10/04/25 History mg tablet bupropion HCl 150 mg 24 hr tablet, 150 mg PO DAILY #90 tabs 06/16/25 10/04/25 Rx extended release (Wellbutrin XL) aspirin 81 mg tablet,delayed 81 mg PO DAILY #90 tabs 0 07/26/25 10/04/25 Rx release (Adult Aspirin Regimen) buspirone 10 mg tablet 10 mg PO TID #90 tabs 10/04/25 Rx carvedilol 6.25 mg tablet 6.25 mg PO BID 10/04/2509/17 History tizanidine 4 mg capsule 4 mg PO Q8HP PRN muscle spas ticity 10/04/25 10/04/25 History prasugrel HCl 10 mg tablet 10 mg PO DAILY 30 days #30 tabs 10/05/25 Rx New Prescriptions to Start Prescriptions: prasugrel HCl Angela Harvey Allergies Allergy/AdvReac Type Severity Reaction Status Date / Time Sulfa (Sulfonamide AdvReac Intermediate Rash Verified 10/04/25 13:22 Antibiotics) Discharge Plan Disposition Patient Disposition: Home, Self-Care Condition: Good Follow up Plan Follow up with: Cheryle Wolf APRN [Nurse Practitioner, Cardiology] - 1 week Heber Knott MD [Primary Care Provider, Family Practice] - Enter time for follow up Prescriptions/Medication Reconciliation: New prasugrel HCl 10 mg Tablet 10 mg PO DAILY 30 Days Qty: 30 0RF Continued amlodipine 10 mg tablet 10 mg PO DAILY gabapentin 300 mg capsule 300 mg PO TID omeprazole 40 mg capsule,delayed release(DR/EC) 40 mg PO DAILY lisinopril-hydrochlorothiazide 20-25 mg tablet 1 tab PO DAILY Qty: 90 3RF atorvastatin 40 mg tablet 40 mg PO DAILY Qty: 90 3RF hydrocodone-acetaminophen 5-325 mg tablet 1 tab PO TID Patient Comments: TAKE ONE TABLET BY MOUTH THREE TIMES DAILY bupropion HCl [Wellbutrin XL] 150 mg tablet extended release 24 hr 150 mg PO DAILY Qty: 90 3RF aspirin [Adult Aspirin Regimen] 81 mg tablet,delayed release (DR/EC) 81 mg PO DAILY Qty: 90 1RF buspirone 10 mg tablet 10 mg PO TID Qty: 90 2RF carvedilol 6.25 mg tablet 6.25 mg PO BID tizanidine 4 mg capsule 4 mg PO Q8HP PRN (Reason: muscle spasticity) Problem Reconciliation Problems Reviewed?: Yes Patient Discharge Instructions ACTIVITY: Continue current activity and No heavy lifting DIET: continue same diet Patient Instructions: Coronary Artery Disease, Cardiac Catheterization, DI for Surgical Site Infection, DI for Chest Pain Print Language: Fijian Providers Primary Care Provider: Heber Knott Admit Provider: Daniel Ott Attending Provider: Daniel Ott
--- NOTE | 2025-10-05 11:04 | EXP.CARD.CON ---
History of Present Illness History of Present Illness Consult date: 10/05/25 Requesting physician: Daniel Ott Consult reason: chest pain and shortness of breath Chief complaint: Unstable angina History of present illness: Hospitalist note: Mr. Narayanan is a 55-year-old male who presented to his cardiology office today due to continued chest pain over the past few days. He rates it intermittently between 5?7 out of 10. States he has been having the pain since Friday, substernal sharp chest pain and diaphoresis. He states it is woken him up from sleep multiple times. He has a primary medical history of CAD, hypertension, hyperlipidemia, GERD, depression/anxiety, COPD, emphysema. EKG performed in cardiac office showed sinus rhythm with no ST elevation. Patient had a LHC in 06/2024 where he received 1 WINSOME. Patient was sent from the cardiac office to the emergency department for further evaluation of his unstable angina. Patient denies fever, chills, cough, congestion, abdominal pain, urinary symptoms. Endorses smoking daily but states he has cut back, occasional alcohol use, denies drug use. Workup in the emergency department was significant for troponin less than 0.01, proBNP within normal limits, coags normal, CBC unremarkable, CMP shows anion gap of 16.[address] Dr. Cm was consulted from the emergency department who recommended admission and and patient be placed on a IV nitroglycerin drip due to continued unstable angina. Cardiology note: s/o LHC yesterday which revealed slow flow down the LAD ramus intermedius and circumflex consistent with endothelial dysfunction. Severe disease in the mid codominant right coronary artery with stenting with 1 WINSOME. EF appeared normal on LV gram. LVEDP was normal. Official echo read is pending. This morning patient reports he is feeling much better. He denies chest pain or shortness of breath. Morning labs reviewed and stable. [facility] Disclaimer: The information contained in this section may have been updated after the patient was seen, as this information can be updated by other users. Medical History Encounter for screening for malignant neoplasm of respiratory organs Mediastinal lymphadenopathy Coronary artery disease Angina pectoris Abnormal findings on diagnostic imaging of heart and coronary circulation Lesion of vocal cord Hoarseness Anxiety History of gastroesophageal reflux (GERD) Hypertension Heart attack X2 COPD mixed type Pulmonary emphysema Dyspnea on exertion Smoking greater than 30 pack years Hoarseness of voice Emphysema lung Erectile dysfunction Chest pain Surgical History History of throat surgery H/O heart artery stent History of ear surgery History of hernia surgery Family History Other Asthma COPD (chronic obstructive pulmonary disease) Diabetes Heart attack Hypertension Lung cancer Social History Smoking Status: Current every day smoker alcohol intake: never substance use type: denies use current occupational status: disabled Travel in the last 8 weeks?: None Have you lived/traveled outside [place] in past 30 days?: No Contact w/someone who lives/traveled outside US past 30 days?: No Exposure to someone with infectious disease in past 14 days?: No Do you have a fever (greater than 100.4 F or 38 C)?: No Have you tested positive for COVID-19?: No Exposed to someone with COVID-19 in past 14 days?: No Do you have a sore throat?: No Do you have a cough?: No Do you have any weakness?: No Do you have any diarrhea?: No Are you experiencing any unusual bleeding?: No Do you have any muscle aches/pain?: No Do you have any abdominal pain?: No Are you experiencing loss of taste or smell?: No Review of Systems Review of Systems Review of systems:: pertinent systems reviewed and negative unless documented below Constitutional Constitutional: Reports system reviewed and no additional complaints, except as documented *Cardiovascular Cardiovascular: Reports system reviewed and no additional complaints, except as documented, Reports chest pain and Reports dyspnea *Respiratory Respiratory: Reports system reviewed and no additional complaints, except as documented and Reports dyspnea *Gastrointestinal Gastrointestinal: Reports system reviewed and no additional complaints, except as documented *Neurologic Neurologic: Reports system reviewed and no additional complaints, except as documented and Denies confusion Psychiatric Psychiatric: Reports system reviewed and no additional complaints, except as documented and Denies confusion Exam Data for Last 24 hours Vital signs and Labs for Last 24 Hours: Temp Pulse Resp BP Pulse Ox O2 Del Method O2 Flow Rate 98.3 F 100 H 16 127/79 96 Room Air 1 10/05/25 07:33 10/05/25 08:00 10/05/25 07:33 10/05/25 07:33 10/05/25 07:33 10/05/25 07:33 10/05/25 03:00 Laboratory Results - last 24 hr 10/04/25 13:54: WBC 7.4, RBC 4.76, Hgb 14.6, Hct 41.8 L, MCV 87.8, MCH 30.7, MCHC 34.9, RDW 13.2, Plt Count 372, MPV 9.4, Neut % (Auto) 64.6, Lymph % (Auto) 19.8, [place] % (Auto) 13.7 H, Eos % (Auto) 1.2, Baso % (Auto) 0.4, Neut # (Auto) 4.8, Lymph # (Auto) 1.5, [place] # (Auto) 1.0, Eos # (Auto) 0.1, Baso # (Auto) 0.0, PT 10.3, INR 0.92, Sodium 136, Potassium 3.5, Chloride 94 L, Carbon Dioxide 29, Anion Gap 16.5 H, BUN 10, Creatinine 0.80, Estimated Creat Clear 120, Estimated GFR 101, Est GFR ( Amer) 122, Glucose 110 H, Hemoglobin A1c 5.9, Calcium 9.2, Magnesium 2.1, Total Bilirubin 0.5, AST 27, ALT 26, Alkaline Phosphatase 106, Troponin I < 0.01, NT-Pro-B Natriuret Pep 24.6, Total Protein 8.0, Albumin 4.8, Globulin 3.2, Albumin/Globulin Ratio 1.5, TSH 0.63 10/04/25 17:29: Sodium 129 L, Potassium 3.6, Chloride 94 L, Carbon Dioxide 27, Anion Gap 11.6, BUN 9, Creatinine 0.70, Estimated Creat Clear 137, Estimated GFR 118, Est GFR ( Amer) 143, Glucose 110 H, Calcium 9.1, Troponin I < 0.01 10/04/25 20:04: Activated Clotting Time 309 H* 10/04/25 20:29: Troponin I < 0.01 10/05/25 05:40: WBC 5.5 D, RBC 4.43 L, Hgb 13.4 L, Hct 39.1 L, MCV 88.3, MCH 30.2, MCHC 34.3, RDW 13.2, Plt Count 300, MPV 8.9, Neut % (Auto) 69.1, Lymph % (Auto) 17.6, [place] % (Auto) 11.2 H, Eos % (Auto) 1.3, Baso % (Auto) 0.4, Neut # (Auto) 3.8, Lymph # (Auto) 1.0, [place] # (Auto) 0.6, Eos # (Auto) 0.1, Baso # (Auto) 0.0, Sodium 131 L, Potassium 3.7, Chloride 97 L, Carbon Dioxide 28, Anion Gap 9.7, BUN 8 L, Creatinine 0.80, Estimated Creat Clear 149, Estimated GFR 101, Est GFR ( Amer) 122, Glucose 116 H, Calcium 9.1, Magnesium 2.1, Total Bilirubin 0.7, AST 28, ALT 25, Alkaline Phosphatase 108, Total Protein 6.9, Albumin 4.4, Globulin 2.5, Albumin/Globulin Ratio 1.8, Triglycerides 94, Cholesterol 97 L, LDL Cholesterol Direct 47.51 L, VLDL Cholesterol 19, HDL Cholesterol 36 L, Cholesterol/HDL Ratio 2.7 I & O for Last 24 hours: Intake & Output 10/02/25 10/03/25 10/04/25 10/05/25 23:59 23:59 23:59 23:59 Intake Total 980 / 980 Balance 980 / 980 Weight 218 lb 3 oz 218 lb Constitutional Constitutional: no acute distress *Routine Respiratory Exam Respiratory: Present CTA bilaterally and symmetric chest movement *Routine Cardiovascular Exam Cardiovascular: Present RRR, Normal S1 and Normal S2 *Routine Abdominal Exam Abdominal: Present soft and normoactive bowel sounds; Absent tenderness *Routine Extremities Exam Extremities: Present full ROM and normal capillary refill; Absent edema *Routine Skin Exam Skin: Present intact, dry and warm Detailed Neck Exam: Thyroids Thyroid: Absent bruit Meds Home Medications and Allergies Home Medications ?Medication ?Instructions ?Recorded ?Confirmed ?Type amlodipine 10 mg tablet 10 mg PO DAILY 05/28/22 10/04/25 History gabapentin 300 mg capsule 300 mg PO TID 05/28/22 10/04/25 History omeprazole 40 mg capsule,delayed 40 mg PO DAILY 05/28/22 10/04/25 History release lisinopril 20 1 tab PO DAILY #90 tabs 06/13/22 10/04/25 Rx mg-hydrochlorothiazide 25 mg tablet atorvastatin 40 mg tablet 40 mg PO DAILY #90 tabs 06/16/24 10/04/25 Rx hydrocodone 5 mg-acetaminophen 325 1 tab PO TID 10/06/24 10/04/25 History mg tablet bupropion HCl 150 mg 24 hr tablet, 150 mg PO DAILY #90 tabs 06/16/25 10/04/25 Rx extended release (Wellbutrin XL) aspirin 81 mg tablet,delayed 81 mg PO DAILY #90 tabs 07/26/25 10/04/25 Rx release (Adult Aspirin Regimen) buspirone 10 mg tablet 10 mg PO TID #90 tabs 08/15/25 10/04/25 Rx carvedilol 6.25 mg tablet 6.25 mg PO BID 10/04/25 10/04/25 History tizanidine 4 mg capsule 4 mg PO Q8HP PRN muscle spasticity 10/04/25 10/04/25 History New Prescriptions to Start Prescriptions: Allergies Allergy/AdvReac Type Severity Reaction Status Date / Time Sulfa (Sulfonamide AdvReac Intermediate Rash Verified 10/04/25 13:22 Antibiotics) Assessment and Plan *Assessment and plan (1) Unstable angina: Status: Acute Category: Medical Code(s): I20.0 - Unstable angina (2) Coronary artery disease: Status: Acute Qualifiers: Coronary Disease-Associated Artery/Lesion type: [place] artery [place] vs. transplanted heart: [place] heart Associated angina: without angina Qualified Code(s): I25.10 - Atherosclerotic heart disease of [place] coronary artery without angina pectoris Category: Medical Code(s): I25.10 - Atherosclerotic heart disease of [place] coronary artery without angina pectoris Plan History of CAD Unstable angina Hxof stenting [facility] 10/05/2025: Endothelial dysfunction down LAD and circumflex. Stenting to mid codominant RCA with 1 WINSOME. Normal EF. Normal LVEDP Repeat echo pending Continue DAPT therapy with aspirin and Effient. Continue atorvastatin 40 mg p.o. daily 10/05/2025: Offical Echo is pending, if normal is CV stable for dc home. Please have patient follow up with cardiology office next week for re-eval.
--- NOTE | 2025-10-06 10:35 | SW/DCPLANNER ---
Spoke with patient on the phone. Patient stated that he is doing good. Patient stated that he is aware of his upcoming appointments. 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 Patient stated that he has no concerns or questions at this time. Mickey Sheikh
== END 2025-10-05 13:19 | disposition home or self-care (01) ==
LOC: ER 15:22 → 2ND 15:32
PROVIDERS: Internal Medicine; Physician Assistant; Admitting Provider Student in an Organized Health Care Education/Training Program; Emergency Provider Student in an Organized Health Care Education/Training Program; PCP Family Medicine; Visit Provider Student in an Organized Health Care Education/Training Program
PROC: 4A023N7 Measurement of Cardiac Sampling and Pressure, Left Heart, Percutaneous Approach (ICD-10-PCS; CPT 93452; principal; 2025-10-04 16:05)
DX: I25.110 Atherosclerotic heart disease of native coronary artery with unstable angina pectoris (principal); I10 Essential (primary) hypertension; J44.9 Chronic obstructive pulmonary disease, unspecified; K21.9 Gastro-esophageal reflux disease without esophagitis; E78.5 Hyperlipidemia, unspecified; E03.9 Hypothyroidism, unspecified; F17.210 Nicotine dependence, cigarettes, uncomplicated; Z95.5 Presence of coronary angioplasty implant and graft; Z79.02 Long term (current) use of antithrombotics/antiplatelets; Z79.890 Hormone replacement therapy; Z79.899 Other long term (current) drug therapy; Z79.82 Long term (current) use of aspirin; Z88.2 Allergy status to sulfonamides; Z82.49 Family history of ischemic heart disease and other diseases of the circulatory system; Z83.6 Family history of other diseases of the respiratory system
CPT/HCPCS: 36415; 71045; 80048; 80053; 80061; 83036; 83735; 83880; 84443; 84484; 85025; 85347; 85610; 92928; 93005; 93306; 93458; 99152; 99153; 99285; C1725; C1769; C1874; C9600; G0378; J1200; J1450; J1644; J1650; J2003; J2250; J3010; J7040; Q9967

== ENCOUNTER 2025-10-08 11:27 | Emergency (ER) | payer MEDICARE, SELFPAY ==
--- NOTE | 2025-10-08 11:30 | ECG_ITS ---
APPROVED REPORT Exam: Resting ECG HR:69 bpm ECG Measurements Heart Rate 69 AXES AR 168 P 53 QRSd 89 QRS 27 QT 378 T 46 QTc 397 Conclusion SINUS RHYTHM POSSIBLE RIGHT VENTRICULAR CONDUCTION DELAY [RSR (QR) IN V1/V2] BORDERLINE ECG UNCONFIRMED REPORT Normal sinus rhythm. No ST elevation or depression. QTc normal at 397 Electronically signed by : PAOLA MAI, 10/08/2025 15:33:04
[2025-10-08 11:31] VITALS: BP 133/89; PULSE 76; RESP 19; TEMP 36.8; O2SAT 97; BMI 29.1
--- OUTSIDE RECORDS SUMMARY | 2025-10-08 11:35 | XMS_ITS | Clinical Summary ---
Author Organization [facility] Address [address] [place] [address] Care Team Providers Care Wax Ball Molder Name Role Phone Oxana Sotelo MD Primary Care Provider [phone] Source Comments This information has been disclosed [...] therelease of HIV test results or diagnoses. [id number] Allergies No known active allergies Medications [...] Advance Directives For more information, please contact: [phone] * Full Code (Latest Code Status on File) Date Activated Date Inactivated Comments 02/03/2014 8:51 PM 02/04/2014 6:26 PM Care Teams Wax Ball Molder Relationship Specialty Start Date End Date Oxana Sotelo MD [address] [place] [address] [place] [address] PCP - General Family Medicine 02/03/14
--- OUTSIDE RECORDS SUMMARY | 2025-10-08 11:35 | XMS_ITS | Clinical Summary ---
Author Organization [facility] Address [address] [place] [address] [place] [address] Care Team Providers Care Freelance Court Reporter Name Role Phone Antony Tao MD Primary Care Provider [phone] Social History Tobacco Use Types Packs/Day Years [...] age to complete this topic Care Teams Freelance Court Reporter Relationship Specialty Start Date End Date Antony Tao MD PCP - General Family Medicine 06/22/21
--- OUTSIDE RECORDS SUMMARY | 2025-10-08 11:35 | XMS_ITS | Clinical Summary ---
Author Organization [facility] Address [address] [place] [address] Phone Care Team Providers Care Corporate Analyst Name Role Phone Oxana Sotelo MD Primary Care Provider [phone] Allergies Active Allergy Reactions Criticality Noted Date [...] original. Sid ENTAS Controlled report completed 04/04/2017 Request#[id number] Informed consent signed 02/28/2017 [facility] - Glen Vila MD Interventional Pain Protocol: Sid report completed (EVERY 3 MONTHS) (04/04/2022) Pharmacy:[place] [address] [address] [facility] [phone] Sp[facility] Center additional info (Transportation, WC, Compound, [...] STAPEDECTOMY ; Surgeon: Gene La MD; Location: [facility] MAIN OR; Service: ENT Medical devices from this surgery are in the Medical Devices section. EAR SURGERY Medical History Medical History Date Comments Reflux Reflux esophagitis Hypertension PR (myocardial infarction) (HCC) Heartburn Hiatal hernia Family [...] this topic Medical Devices Implanted Type Area Director Process Engineering Device Identifier Shelf Expiration Date Model / Serial / Lot Prosthesis Stapes Classic Shaft 4mm X 0.6mm - [id number] Implanted:Qty: 1 on 04/07/2017 by Gene La MD at [facility] Right: Ear GYRUS ACMI:ENT 11/30/2026 [id number] / / [id number] Insurance [facility] [employer] [place] Advance Directives For more information, please contact: [phone] * Full Code (Latest Code Status on File) Date Activated Date Inactivated Comments 04/23/2016 6:53 PM 04/23/2016 11:31 PM Care Teams Corporate Analyst Relationship Specialty Start Date End Date Oxana Sotelo MD [address] [place] [id number] PCP - General Family Medicine 03/28/15
--- NOTE | 2025-10-08 11:36 | XR_ITS ---
PROCEDURE INFORMATION: Exam: XR Chest Exam date and time: 10/08/2025 12:15 PM Age: 55 years old Clinical indication: Shortness of breath; Additional info: Chest pain, short of breath TECHNIQUE: Imaging protocol: Radiologic exam of the chest. Views: 1 view. Total images: 1 COMPARISON: CR XR CHEST PORTABLE 10/04/2025 2:28 PM FINDINGS: Lungs: Patchy airspace opacity, consistent with developing pneumonia noted within the left upper lobe. Bilateral hyperinflation is present. Atelectatic changes within both lung bases. Pleural spaces: No pleural effusion. No pneumothorax. Heart/Mediastinum: The heart is not enlarged. Vasculature: Tortuosity of the thoracic aorta. Bones/joints: Rightward curvature of the thoracic spine with mild degenerative changes. IMPRESSION: 1. Patchy airspace opacity, consistent with developing pneumonia noted within the left upper lobe. 2. Bilateral hyperinflation is present. 3. Atelectatic changes within both lung bases.
--- OUTSIDE RECORDS SUMMARY | 2025-10-08 11:36 | XMS_ITS | Clinical Summary ---
Author Organization [facility] Address [address] [facility], [address] [place] [address] Care Team Providers Care Stamping Mill Tender Name Role Phone Unavailable Primary Care Provider [...] Plan of Treatment Not on file Insurance [facility]
--- OUTSIDE RECORDS SUMMARY | 2025-10-08 11:36 | XMS_ITS | Data Portability ---
Author Organization [facility] Address [address] [place] [address] Care Team Providers Care Ice Hockey Coach Name Role Phone DANA CM Reconciliation Coordinator [phone] Assessment Encounter Date Assessment Date Assessment LastModified [...] Lab CBC w/ auto diff 2024 025 [place] [facility], [address], Antonio F, [place], [address], 07:50:33 CMP, serum or plasma 2024 025 [place] [facility], [address], Antonio F, [place], [address], 5 07:50:33 Referral None recorded . Procedures None recorded . Surgeries None recorded . Imaging XR, chest 2024 025 [facility], [address] [place], [address], 11:54:08 CT, chest, w/o contrast 2024 025 [facility], [address] [place] [address], [address], 5 14:03:18 electroc ardiogra m [email or web address] [place] [address], [address] [place] [address], [place], [address], 5 07:42:30 Medication Orders bupivaca ine (PF) 0.75 % (7.5 mg/mL) injectio n solution 2024 025 [email or web address] [facility], [address] [place] [address], [place], [address], 5 13:25:44 triamcin olone acetonid e 40 mg/mL suspensi on for injectio n 2024 025 [facility], [address] [place] [address], [place], [address], 5 09:14:22 ketorola c 60 mg/2 mL intramus cular solution 2024 025 [email or web address] [facility], [address] [place] [address], [place], [address], 5 13:33:45 Solu-Med rol (PF) 125 mg/2 mL solution for injectio n 2024 025 [email or web address] Not available 5 13:44:18 ceftriax one 1 gram solution for injectio n 2024 025 [email or web address] Not available 5 13:33:20 azithrom ycin 500 mg tablet 2024 025 [email or web address] [facility] [place], [address] [place] [address], [place], [address], 5 10:40:19 predniso ne 20 mg tablet 2024 025 [facility] [place], [address] [facility], [place], [address], 09:11:05 Patient TargetsNo targets recorded. Patient Instructions Encounter Date Encounter Id Patient Instructions Last Modified By Organization Details Last Modified Time 05/16/2025 [id number] smoking cessatio n counseling, greater than 3 [...] /uL 3.4-10 .8 normal Not Available [facility] ([facility]) [address] [place], [address], 03/26/2025 07:50:33 03/25/2003/26/2025 CBC WITH DIFFE RENTI AL/PL ATELE T RBC 4.32 x10e6 /uL 4.14-5 .80 normal Not Available [facility] ([facility]) [address] [place], [address], 03/26/2025 07:50:33 03/25/20 25 03/26/2025 CBC WITH DIFFE RENTI AL/PL ATELE T hemoglobin 13.6 g/dL 13.0-1 7.7 normal Not Available [facility] ([facility]) [address] [place], [address], 03/26/2025 07:50:33 03/25/20 25 03/26/2025 CBC WITH DIFFE RENTI AL/PL ATELE T hematocrit 40.3 % 37.5-5 1.0 normal Not Available [facility] ([facility]) [address] [facility], [place], [address], 03/26/2025 07:50:33 03/25/2003/26/2025 CBC WITH DIFFE RENTI AL/PL ATELE T MCV 93 fL 79-97 normal Not Available [facility] ([facility]) [address] [place], [address], 03/26/2025 07:50:33 03/25/20 25 03/26/2025 CBC WITH DIFFE RENTI AL/PL ATELE T MCH 31.5 pg 26.6-3 3.0 normal Not Available [facility] ([facility]) [address] [place], [address], 03/26/2025 07:50:33 03/25/20 25 03/26/2025 CBC WITH DIFFE RENTI AL/PL ATELE T MCHC 33.7 g/dL 31.5-3 5.7 normal Not Available [facility] ([facility]) [address] [place], [address], 03/26/2025 07:50:33 03/25/2003/26/2025 CBC WITH DIFFE RENTI AL/PL ATELE T RDW 12.9 % 11.6-1 5.4 Not Available [facility] ([facility]) [address] [place], [address], 03/26/2025 07:50:33 03/25/2003/26/2025 CBC WITH DIFFE RENTI AL/PL ATELE T platelets 567 x10e3 /uL 150-45 0 above high normal Not Available [facility] ([facility]) [address] [place], [address], 03/26/2025 07:50:33 03/25/20 25 03/26/2025 CBC WITH DIFFE RENTI AL/PL ATELE T neutrophils 62 % not estab. normal Not Available [facility] ([facility]) [address] [facility], [place], [address], 03/26/2025 07:50:33 03/25/20 25 03/26/2025 CBC WITH DIFFE RENTI AL/PL ATELE T lymphs 23 % not estab. normal Not Available [facility] ([facility]) [address] [facility], [place], [address], 03/26/2025 07:50:33 03/25/20 25 03/26/2025 CBC WITH DIFFE RENTI AL/PL ATELE T monocytes 13 % not estab. normal Not Available [facility] ([facility]) [address] [place], [address], 03/26/2025 07:50:33 03/25/20 25 03/26/2025 CBC WITH DIFFE RENTI AL/PL ATELE T eos 0 % not estab. normal Not Available [facility] ([facility]) [address] [facility], [place], [address], 03/26/2025 07:50:33 03/25/20 25 03/26/2025 CBC WITH DIFFE RENTI AL/PL ATELE T basos 1 % not estab. normal Not Available [facility] ([facility]) [address] [facility], [place], [address], 03/26/2025 07:50:33 03/25/20 25 03/26/2025 CBC WITH DIFFE RENTI AL/PL ATELE T immature cells MACHINIST OUTSIDE Not Available [facility]) [address] [place], [address], 03/26/2025 07:50:33 03/25/20 25 03/26/2025 CBC WITH DIFFE RENTI AL/PL ATELE T neutrophils (absolute) 4.9 x10e3 /uL 1.4-7. 0 normal Not Available [facility] ([facility]) [address] [place], [address], 03/26/2025 07:50:33 03/25/20 25 03/26/2025 CBC WITH DIFFE RENTI AL/PL ATELE T lymphs (absolute) 1.8 x10e3 /uL 0.7-3. 1 normal Not Available [facility] ([facility]) [address] [facility], [place], [address], 03/26/2025 07:50:33 03/25/2003/26/2025 CBC WITH DIFFE RENTI AL/PL ATELE T monocytes(ab solute) 1.0 x10e3 /uL 0.1-0. 9 above high normal Not Available [facility] ([facility]) [address] [place], [address], 03/26/2025 07:50:33 03/25/20 25 03/26/2025 CBC WITH DIFFE RENTI AL/PL ATELE T eos (absolute) 0.0 x10e3 /uL 0.0-0. 4 normal Not Available [facility] ([facility]) [address] [place], [address], 03/26/2025 07:50:33 03/25/20 25 03/26/2025 CBC WITH DIFFE RENTI AL/PL ATELE T baso (absolute) 0.0 x10e3 /uL 0.0-0. 2 normal Not Available [facility] ([facility]) [address] [place], [address], 03/26/2025 07:50:33 03/25/20 25 03/26/2025 CBC WITH DIFFE RENTI AL/PL ATELE T immature granulocytes 1 % not estab. Not Available [facility] ([facility]) [address] [place], [address], 03/26/2025 07:50:33 03/25/20 25 03/26/2025 CBC WITH DIFFE RENTI AL/PL ATELE T immature grans (abs) 0.0 x10e3 /uL 0.0-0. 1 Not Available [facility] ([facility]) [address] [facility], [place], [address], 03/26/2025 07:50:33 03/25/20 25 03/26/2025 CBC WITH DIFFE RENTI AL/PL ATELE T NRBC MACHINIST OUTSIDE Not Available [facility] ([facility]) [address] [facility], [place], [address], 03/26/2025 07:50:33 03/25/20 25 03/26/2025 CBC WITH DIFFE RENTI AL/PL ATELE T hematology comments: MACHINIST OUTSIDE Not Available [facility] ([facility]) [address] [facility], [place], [address], 03/26/2025 07:50:33 03/25/20 25 03/26/2025 COMP. METAB OLIC PANEL (14) glucose 90 mg/dL 70-99 normal Not Available [facility] ([facility]) [address] [facility], [place], [address], 03/26/2025 07:50:33 03/25/20 25 03/26/2025 COMP. METAB OLIC PANEL (14) BUN 9 mg/dL 6-24 normal Not Available [facility] ([facility]) [address] [facility], [place], [address], 03/26/2025 07:50:33 03/25/20 25 03/26/2025 COMP. METAB OLIC PANEL (14) creatinine 0.73 mg/dL 0.76-1 .27 below low normal Not Available [facility] ([facility]) [address] [facility], [place], [address], 03/26/2025 07:50:33 03/25/20 25 03/26/2025 COMP. METAB OLIC PANEL (14) eGFR 109 mL/mi n/1.7 3 >59 normal Not Available [facility] ([facility]) [address] [place], [address], 03/26/2025 07:50:33 03/25/20 25 03/26/2025 COMP. METAB OLIC PANEL (14) BUN/creatini ne ratio 12 9-20 normal Not Available [facility] ([facility]) [address] [place], [address], 03/26/2025 07:50:33 03/25/20 25 03/26/2025 COMP. METAB OLIC PANEL (14) sodium 131 mmol/ L 134-14 4 below low normal Not Available [facility] ([facility]) [address] [place], [address], 03/26/2025 07:50:33 03/25/20 25 03/26/2025 COMP. METAB OLIC PANEL (14) potassium 3.9 mmol/ L 3.5-5. 2 normal Not Available [facility] ([facility]) [address] [place], [address], 03/26/2025 07:50:33 03/25/20 25 03/26/2025 COMP. METAB OLIC PANEL (14) chloride 92 mmol/ L 96-106 below low normal Not Available [facility] ([facility]) [address] [place], [address], 03/26/2025 07:50:33 03/25/20 25 03/26/2025 COMP. METAB OLIC PANEL (14) carbon dioxide, total 22 mmol/ L 20-29 normal Not Available [facility] ([facility]) [address] [place], [address], 03/26/2025 07:50:33 03/25/20 25 03/26/2025 COMP. METAB OLIC PANEL (14) calcium 9.3 mg/dL 8.7-10 .2 normal Not Available [facility] ([facility]) [address] [place], [address], 03/26/2025 07:50:33 03/25/20 25 03/26/2025 COMP. METAB OLIC PANEL (14) protein, total 6.6 g/dL 6.0-8. 5 normal Not Available [facility] ([facility]) [address] [place], [address], 03/26/2025 07:50:33 03/25/20 25 03/26/2025 COMP. METAB OLIC PANEL (14) albumin 4.5 g/dL 3.8-4. 9 normal Not Available [facility] ([facility]) [address] [place], [address], 03/26/2025 07:50:33 03/25/20 25 03/26/2025 COMP. METAB OLIC PANEL (14) globulin, total 2.1 g/dL 1.5-4. 5 Not Available [facility] ([facility]) [address] [place], [address], 03/26/2025 07:50:33 03/25/20 25 03/26/2025 COMP. METAB OLIC PANEL (14) bilirubin, total 0.4 mg/dL 0.0-1. 2 normal Not Available [facility] ([facility]) [address] [place], [address], 03/26/2025 07:50:33 03/25/20 25 03/26/2025 COMP. METAB OLIC PANEL (14) alkaline phosphatase 138 IU/L 44-121 above high normal Not Available [facility] ([facility]) [address] [place], [address], 03/26/2025 07:50:33 03/25/20 25 03/26/2025 COMP. METAB OLIC PANEL (14) AST (SGOT) 14 IU/L 0-40 normal Not Available [facility] ([facility]) [address] [facility], [place], [address], 03/26/2025 07:50:33 03/25/20 25 03/26/2025 COMP. METAB OLIC PANEL (14) ALT (SGPT) 27 IU/L 0-44 normal Not Available [facility] ([facility]) [address] [facility], [place], [address], 03/26/2025 07:50:33 01/27/20 25 01/20/2025 XR, lumba r spine , 2 view No observ ation record ed. [email or web address] Not Available 2024 08:02:22 01/27/20 25 01/20/2025 XR, cervi she spine , 4 or 5 view No observ ation record ed. [email or web address] Not Available 2024 08:02:22 03/14/20 25 03/14/2025 elect rocar diogr am No observ ation record ed. [email or web address] [facility] [address] [place], [address], 03/14/2025 16:12:24 03/14/20 25 elect rocar diogr am No observ ation record ed. [email or web address] [facility] [address] [facility] [facility] [address] [place], [address], 03/15/2025 07:26:23 04/14/20 CT, chest , w/o contr ast No observ ation record ed. [email or web address] [address], [place], [address], 04/15/2025 16:11:11 05/16/20 25 05/16/2025 XR, chest No observ ation record ed. [facility] [address] [facility] [facility] [address] [place], [address], 05/16/2025 13:49:51 Result Notes None recorded. Problems Name Problem SNOMED Code Status Onset Date Resolution Date Notes Provider Name and Address Organization Details Recorded Time Suspecte d COVID-19 676567841 Completed 07/17/2021 Removal Reason: Problem added by user [email or web address] from the COVID-19 watch flag Silvana Tolbert null, [place] - [facility] 1 14:03:40 Hyperlip idemia 74423936 Active 2016 Cha Satya null, [place] - [facility] 7 13:29:52 Hyperten sive disorder 60953518 Active 2016 Cha Satya null, [place] - [facility] 7 13:29:58 Acid reflux 748502545 Active 2016 Cha Satya null, [place] [facility] 7 13:30:06 Hiatal hernia 66007411 Active 2016 Beatrice Guerrero null, [place] - [facility] 7 13:58:30 Nicotine dependen ce 11465553 Active 2017 Lilo Espinosa null, [place] - [facility] 8 15:41:18 Osteoart hritis of knee 309783382 Active 2017 Antony Tao MD [address], [place], [address] , [place] - [facility] 8 16:30:05 Upper respirat ory infectio n 00636541 Completed 201709/18/2018 Annette Ena null, [place] - [facility] 8 12:54:04 Chronic back pain 393840964 Active 2019 Antony Tao MD [address], [place], [address] , [place] [facility] 0 13:46:24 Degenera tion of lumbar interver tebral disc 27598305 Active 2019 Antony Tao MD [address], [place], [address] , [place] [facility] 0 11:48:59 Headache 41435533 Completed 202001/20/2023 Annette Mathias RN [address], [place], [address] , [place] - [facility] 3 09:19:08 Insect bite - wound 046257121 Completed 202012/05/2021 Antony Tao MD [address], [place], [address] , [place] [facility] 2 17:03:40 Cellulit is 259846438 Completed 202012/05/2021 Antony Tao MD [address], [place], [address] , [place] [facility] 2 17:03:14 Chest pain 39320022 Completed 202101/20/2023 Michael Carpenter, [employer] [address], [place], [address] , [place] [facility] 5 13:41:05 Spasm of back muscles 151737033 Active 2023 Tj Muniz MD [address], [place], [address] , [place] [facility] 4 09:39:30 Chest pain 20700379 Active 2024 Michael Carpenter, [employer] [address], [place], [address] , [place] [facility] 5 13:41:05 Hyponatr emia 44646950 Active 2024 Sherrie Velazquez, [employer] [address], [place], [address] , [place] [facility] 5 11:04:44 Hematocr it - PCV level - finding 396931862 Active 2024 Sherrie Velazquez APRN [address], [place], [address] , [place] [facility] 5 11:05:15 Pneumoni a 827568155 Active 2024 Sherrie Velazquez APRN [address], [place], [address] , [place] [facility] 5 12:28:14 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 Active 2024 Sherrie Velazquez APRN [address], [place], [address] , [place] [facility] 5 12:31:00 Alkaline phosphat ase above referenc e range 154115608 Active 2024 Sherrie Velazquez, [employer] [address], [place], [address] , [place] - [facility] 5 13:02:45 Platelet count above referenc e range 593404582 Active 2024 Sherrie Velazquez, [employer] [address], [place], [address] , [place] - [facility] 5 13:03:15 CT of chest abnormal 79023156489 730987 Active 2024 Allison Karina, [employer] [address], [place], [place], [address] , [place] - [facility] 5 09:30:26 Problem Notes None recorded. Procedures Surgical History Date Name Laterality Status Provider Name and Address Organization Details Recorded Time 03/25 Medication Reconcilliation completed Humza Menjivar [place] - [facility] 5 10:39:25 01/28 Joint Injection completed Tj Muniz MD [address], [place], [address] , [place] - [facility] 5 14:05:56 12/21 Joint Injection completed Tj Muniz MD [address], [place], [address] , [place] - [facility] 5 18:08:41 09/02 Joint Injection completed Tj Muniz MD [address], [place], [address] , [place] - [facility] 4 12:10:57 05/23 [...] Name and Address Organization Details Recorded Time 22149 Substance with sulfonami de structure and antibacte rial mechanism of action (substanc e) medicatio n hives Not available Not available 01/05/2018 22021 8003 SNOMED Beatrice Yolanda null, [place] - [...] 10/25/20 13;Indic ation: Hyperten mekhi - (07.4019 00);Phar Sky fied: 07/27/20 13 8:16AM Not Available Not [...] height Body temperature Heart rate Oxygen saturation Respiratory rate Systolic And Diastolic Provider Name and Address Organization Details Last Updated DateTime 5 182.88 cm 97.8 [degF] 88 /min 97 % 18 /min 122/70 mm[Hg] Nicole Dewey es [place] - [facility] 5 16:13:09 Date Recorded Body height Body mass index (BMI) Body weight Oxygen saturation Body temperature Heart rate Respiratory rate Pain severity - 0-10 verbal numeric rating [Score] - Reported Systolic And Diastolic Provider Name and Address Organization Details Last Updated DateTime 5 182.88 cm 29.7 kg/m2 25486.7 3 g 97 % 97.7 [degF] 97 /min 18 /min 7 120/78 mm[Hg] Nicole Dewey es [place] - [facility] 5 12:58:39 Date Recorded Body height Body mass index (BMI) Body weight Heart rate Body temperature Oxygen saturation Respiratory rate Systolic And Diastolic Provider Name and Address Organization Details Last Updated DateTime 5 182.88 cm 29.1 kg/m2 43322.5 7 g 98 /min 97.8 [degF] 97 % 18 /min 140/82 mm[Hg] Nicole [facility]ry [facility] [place] - [facility] 5 13:24:55 Date Recorded Body height Body mass index (BMI) Body weight Body temperature Heart rate Oxygen saturation Respiratory rate Pain severity - 0-10 verbal numeric rating [Score] - Reported Systolic And Diastolic Provider Name and Address Organization Details Last Updated DateTime 5 182.88 cm 28.9 kg/m2 19572.5 7 g 97.7 [degF] 78 /min 97 % 18 /min 0 110/72 mm[Hg] Allison Menjivar [place] - [facility] 5 10:39:20 Date Recorded Body height Body mass index (BMI) Body weight Heart rate Oxygen saturation Respiratory rate Pain severity - 0-10 verbal numeric rating [Score] - Reported Systolic And Diastolic Provider Name and Address Organization Details Last Updated DateTime 5 182.88 cm 29.2 kg/m2 94571.3 6 g 74 /min 96 % 18 /min 0 102/70 mm[Hg] Annette Sutherland [place] - [facility] 5 09:17:28 Social History Question Answer Notes LastModified by Organizat ion Details LastModified Time Tobacco Smoking Status Current Every Day Smoker Tessy mac, [place] - [facility] 01/22/2024 13:25:00 Do You Have An Advance Directive? No Information not available 03/11/2017 Are You Blind Or Do You Have Difficulty Seeing? No Information not available 07/24/2023 Is Blood Transfusion Acceptable In An Emergency? Yes Information not available 07/24/2023 What Is Your Level Of Caffeine Consumption? Moderate [email or web address] Information not available 03/11/2017 How Much Tobacco Do You Chew? None Information not available 03/11/2017 Are You Deaf Or Do You Have Serious Difficulty Hearing? No [email or web address] Information not available 03/11/2017 What Type Of Diet Are You Following? REGULAR Information not available 07/24/2023 Which Illicit Or Recreational Drugs Have You Used? None [email or web address] Information not available 03/11/2017 What Is The Highest Grade Or Level Of School You Have Completed Or The Highest Degree You Have Received? [id number] Information not available 07/24/2023 Swimming/diving Yes Informati [...] available 12/02/2023 What Is Your Relationship Status? [email or web address] Information not available 03/11/2017 Do You Use [...] Age Did You Start Smoking Tobacco? 20 [email or web address] Information not available 02/10/2020 Are You Passively Exposed To Smoke? Yes Information no t available 03/11/2017 How Much Tobacco Do You Smoke? 0.25 PPD [email or web address] Information not available 07/27/2024 General Stress Level Medium Information not available 07/24/2023 Do You Use Sunscreen Routinely? Yes [email or web address] Information not available 03/11/2017 Has Tobacco Cessation [...] use any illicit or recreational drugs? No [email or web address] Information not available 04/25/2022 Do you or have you ever used any other forms of tobacco or nicotine? No Information not available 07/24/2023 What is your level of alcohol consumption? Occasional [email or web address] Information not available 03/11/2017 Do you or have you ever used smokeless tobacco? Never used smokeless tobacco [email or web address] Information not available 02/10/2020 Are you currently employed? No Information not available 07/24/2023 Are you able to walk independently without assistance or assistive devices? [email or web address] Information not available 07/24/2023 Do you have difficulty doing errands alone? No Information not available 07/24/2023 Are you able to care for yourself independently? 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 No Information not available 07/24/2023 Do you or have you ever used e-cigarettes or vape? Never used electronic cigarettes [email or web address] Information not available 02/10/2020 What is your exercise level? Occasional Information not available 03/11/2017 Mental Status Question [...] influenza, unspecified formulation 2 completed Not Available [facility] 12/02/2023 09:48:22 Tdap 0 completed Not Available [facility] 12/02/2023 09:48:22 Tdap 3 completed Antony Tao MD [address], [place], [address], [place] [facility] 05/29/2023 09:30:18 Td (adult), 2 Lf tetanus toxoid, preservative free, adsorbed 7 completed Crystalmary ArceMarcos null, [place] - [facility] 10/22/2022 15:09:46 Influenza, split virus, quadrivalent, PF 2 completed Crystale Marcos [place] [facility] 10/22/2022 15:09:46 COVID-19, mRNA, LNP-S, PF, 30 mcg/0.3 mL dose 1 completed Crystale Marcos [place], [place] [facility] 10/22/2022 15:09:46 Influenza, split virus, trivalent, PF 2 completed Crystale Marcos [place] [facility] 10/22/2022 15:09:46 COVID-19, mRNA, LNP-S, PF, 30 mcg/0.3 mL dose 1 completed Crystale Marcos [place] [facility] 10/22/2022 15:09:46 Past Encounters Encounter ID Performer Location Encounter Start Date Encounter Closed Date Diagnosis/Indication Diagnosis SNOMED-CT Code Diagnosis ICD10 Code Diagnosis IMO Codes Diagnosis Note [id number] Beatrice Guerrero APRN [facility] [address] [place] [address] 03/11/2017 13:21:51 03/11/2017 14:37:17 Body mass index 25-29 - overweight 584038558 Z68.29 Chest pain 55219946 R07. 9 Hypertensive disorder 38 823154 I10 Hyperlipidemia 35925972 E78.5 Cough 72352512 R05 Fatigue 77352105 R53.83 [id number] Beatrice Yolanda [address] [place] [address] 12/29/2017 16:16:58 12/29/2017 16:48:41 Body mass index 25-29 - overweight 241865197 Z68.27 Hiatal hernia 37962559 K 44.9 Acid reflux 880600766 K2 1.9 Hypertensive disorder 38 703279 I10 Hyperlipidemia 48737480 E78.5 Cellulitis of foot 73424 6007 L03.495 [id number] Beatrice Yolanda[address] [place] [address] 01/05/2018 13:52:41 01/05/2018 14:53:09 Headache 01013617 R51 Cellulitis of foot 86383 6007 L03.837 [id number] Beatricealeshia Guerrero [address] [place] [address] 01/22/2018 16:14:56 01/22/2018 17:40:14 Pain of joint 64399032 M25.50 Cellulitis of foot 47386 6007 L03.119 Hypertensive disorder 38 692601 I10 [id number] Antony Tao MD [address] [place] [address] 04/09/2018 13:22:20 04/09/2018 15:49:11 Body mass index 25-29 - overweight 863187651 Z68.27 Overweight 187142631 E66 .3 Osteoarthr itis of knee 078386231 M17.0 Hypertensive disorder 38 435250 I10 Hyperlipidemia 44209421 E78.5 Bilateral knee pain 1187 171093 8345164 M25.561 M25.562 Low back pain 368088794 M54.5 [id number] Antony Tao MD [address] [place] [address] 06/24/2018 14:45:20 06/24/2018 16:59:32 Nicotine dependence 59082471 F17.200 Bilateral knee pain 1187 117309 9115543 M25.561 M25.562 Hypertensive disorder 38 135550 I10 Hyperlipidemia 58807698 E78.5 Osteoarthr itis of knee 051481629 M17.0 Low back pain 072459545 M54.5 [id number] Antony Tao MD [facility] [address] [place], [place] [address] [place] [address] 07/22/2018 10:37:45 07/22/2018 11:47:22 Body mass index 25-29 - overweight 987064703 Z68.27 Overweight 423263546 E66 .3 Upper resp iratory infection 67069144 J06.9 Osteoarthr itis of knee 881941071 M17.0 [id number] Antony Tao MD [address] [place] [address] 09/17/2018 14:23:55 09/17/2018 16:11:59 Increased frequency of urination 163372660 R35.0 Prostatitis 1326142 N41. 9 Osteoarthr itis of knee 895513379 M17.0 Hypertensive disorder 38 351307 I10 Hyperlipidemia 71315748 E78.5 Acid reflux 296730402 K2 1.9 [id number] Antony Tao MD [facility] [address] [place] [address] [place] [address] 10/30/2018 15:24:57 10/30/2018 17:14:19 Low back pain 784984111 M54.5 Constipation 77661975 K5 9.00 Osteoarthr itis of knee 044756782 M17.0 Hypertensive disorder 38 831380 I10 Hyperlipidemia 97068582 E78.5 Acid reflux 360490399 K2 1.9 Hiatal hernia 27489514 K 44.9 [id number] Beatrice Guerrero APRN [facility] [address] [place], [place] [address] [place] [place] [address] 04/26/2019 14:57:35 04/26/2019 15:59:28 Cellulitis of lower limb 907958563 L03.119 Costal chondritis 923248 04 M94.0 Cramp in lower limb 4499 84798 R25.2 Restless l egs syndrome 47357092 G25.81 Acid reflux 224981233 K2 1.9 [id number] Beatrice Guerrero [address] [place] [address] 06/01/2019 14:19:00 06/01/2019 15:10:17 Hypertensive disorder 36604870 I10 Eczema 68541749 L30.9 Acid reflux 736368070 K2 1.9 [id number] Antnoy Tao MD [address] [place] [address] 11/26/2019 08:11:20 11/26/2019 10:13:53 Hypertensive disorder 32356429 I10 Upper resp iratory infection 58770610 J06.9 [id number] Nilda Olmedo [address] [place] [address] 12/08/2019 10:10:28 12/08/2019 11:49:49 Cough 72487016 R05 Upper resp iratory infection 31792664 J06.9 [id number] Antony Tao MD [address] [place] [address] 02/10/2020 09:17:29 02/10/2020 16:33:03 Body mass index 25-29 - overweight 323952252 Z68.27 Hand pain 18492985 M79.6 41 Pain in right knee 87229 70802 70620 M25.561 Primary er ectile dysfunction 000449011 N52.9 Acid reflux 745970355 K2 1.9 Hyperlipidemia 09137683 E78.5 Hypertensive disorder 38 530036 I10 Osteoarthr itis of knee 668904392 M17.0 Chronic back pain 195037 002 G89.29 [id number] Antony Tao MD [address] [place] [address] 05/31/2020 15:12:13 05/31/2020 16:59:14 Chronic back pain 889763752 G89.29 Low back pain 442944743 M54.5 Hyperlipidemia 28809931 E78.5 Hypertensive disorder 38 813137 I10 Nicotine dependence 5629 4008 F17.200 Osteoarthr itis of knee 053412432 M17.0 Lumbar radiculopathy 128 464649 M54.16 [id number] Antony Tao MD [address] [place] [address] 07/14/2020 15:55:14 07/14/2020 17:04:08 Chronic back pain 129728881 G89.29 Osteoarthr itis of knee 386882584 M17.0 Hypertensive disorder 38 391432 I10 Hyperlipidemia 81554179 E78.5 [id number] Antony Tao MD [address] [place] [address] 08/16/2020 14:14:53 08/16/2020 16:57:16 Chronic back pain 326150118 G89.29 Hyperlipidemia 20873199 E78.5 Hypertensive disorder 38 504176 I10 Nicotine dependence 5629 4008 F17.200 Degenerati on of lumbar intervertebral disc 10212186 M51.36 [id number] Antony Tao MD [address] [place] [address] 05/18/2021 14:47:08 05/18/2021 17:08:58 Degeneration of lumbar intervertebral disc 09500939 M51.36 Chronic back pain 636505 002 G89.29 Osteoarthr itis of knee 232711565 M17.0 Nicotine dependence 5629 4008 F17.200 Hypertensive disorder 38 054674 I10 Hyperlipidemia 38294114 E78.5 Acid reflux 211771689 K2 1.9 Hiatal hernia 26430897 K 44.9 Headache 43054449 R51.9 [id number] Antony Tao MD [address] [place] [address] 06/28/2021 11:14:47 06/28/2021 11:48:01 Headache 68204962 R51.9 Nicotine dependence 5629 4008 F17.200 Chronic back pain 126088 002 G89.29 Bilateral knee pain 1187 295050 1315518 M25.561 M25.562 Degenerati on of lumbar intervertebral disc 41703549 M51.36 Osteoarthr itis of knee 941898218 M17.0 Erectile dysfunction 860 047946 F52.21 Hyperlipidemia 08235956 E78.5 Hypertensive disorder 38 353571 I10 [id number] Nilda Olmedo APRN [address] [place] [address] 07/17/2021 09:30:17 07/17/2021 10:25:06 Viral screening 672036731 Z11.52 Upper resp iratory infection 85883763 J06.9 [id number] Antony Tao MD [address] [place] [address] 09/14/2021 13:14:45 09/14/2021 16:39:20 Skin lesion 95496705 L98.9 Wound of skin 424008752 T14.8XXA Chronic back pain 945420 002 G89.29 Degenerati on of lumbar intervertebral disc 11633891 M51.36 Hyperlipidemia 37321072 E78.5 Hypertensive disorder 38 325034 I10 Cellulitis 603974150 L03 .90 [id number] Antony Tao MD [address] [place] [address] 09/28/2021 13:43:02 09/28/2021 15:54:36 Cellulitis 573011543 L03.90 Insect bite - wound 2764 46815 T14.8XXD Itching of skin 10568842 0 L29.9 Chronic back pain 149392 002 G89.29 Degenerati on of lumbar intervertebral disc 57956245 M51.36 Hyperlipidemia 27381426 E78.5 Osteoarthr itis of knee 342378904 M17.0 [id number] Antony Tao MD [address] [place] [address] 12/05/2021 14:08:35 12/05/2021 16:20:34 Headache 48359400 R51.9 Degenerati on of lumbar intervertebral disc 82880458 M51.36 Chronic back pain 665981 002 G89.29 Pruritic rash 95563915 L 28.2 Acid reflux 345225848 K2 1.9 Hyperlipidemia 58962895 E78.5 Hypertensive disorder 38 643573 I10 Osteoarthr itis of knee 352093021 M17.0 [id number] Antony Tao MD [address] [place] [address] 01/03/2022 14:50:51 01/03/2022 17:13:59 Headache 66634190 R51.9 Degenerati on of lumbar intervertebral disc 30530621 M51.36 Chronic back pain 713365 002 G89.29 Osteoarthr itis of knee 781763132 M17.0 Hypertensive disorder 38 278897 I10 Nicotine dependence 5629 4008 F17.200 Hyperlipidemia 73135695 E78.5 Acid reflux 121201375 K2 1.9 Fatigue 18859761 R53.83 Hiatal hernia 69722403 K 44.9 [id number] Antony Tao MD [address] [place] [address] 01/11/2022 14:55:30 01/11/2022 16:43:00 Headache 70349403 R51.9 Degenerati on of lumbar intervertebral disc 29392367 M51.36 Chronic back pain 315939 002 G89.29 Osteoarthr itis of knee 649315381 M17.0 Nasal congestion 8317549 0 R09.81 Body mass index 25-29 - overweight 773818899 Z68.27 Vitamin D deficiency 347 13136 E55.9 [id number] Antony Tao MD [address] [place] [address] 03/01/2022 11:05:16 03/01/2022 13:05:35 Chronic back pain 630893391 G89.29 Hyperlipidemia 27292563 E78.5 Hypertensive disorder 38 240357 I10 Degenerati on of lumbar intervertebral disc 71850967 M51.36 [id number] Antony Tao MD [address] [place] [address] 03/07/2022 08:38:49 03/07/2022 09:27:49 Chronic back pain 764467527 G89.29 Degenerati on of lumbar intervertebral disc 18221913 M51.36 Hyperlipidemia 85060714 E78.5 Hypertensive disorder 38 134268 I10 [id number] Antony Tao MD [address] [place] [address] 04/25/2022 09:34:07 04/25/2022 11:11:08 Degeneration of lumbar intervertebral disc 79393861 M51.36 Headache 28733003 R51.9 Chronic back pain 870678 002 G89.29 Osteoarthr itis of knee 581819285 M17.0 Nicotine dependence 5629 4008 F17.200 Hypertensive disorder 38 816605 I10 Hyperlipidemia 91640234 E78.5 Acid reflux 416504796 K2 1.9 Anxiety 94252039 F41.9 Mild depression 87961401 3 F32.0 Abnormal gait 74585554 R 26.9 handicappe d form completed for patient today, see copy in chart [id number] Antony Tao MD [address] [place] [address] 05/23/2022 13:06:31 05/23/2022 14:50:07 Chest pain 77491810 R07.9 Hypertensive disorder 38 031610 I10 Dizziness 543765062 R42 Chronic back pain 358015 002 G89.29 Aftercare 919378016 Z51. 89 Acid reflux 503405118 K2 1.9 Hyperlipidemia 56185262 E78.5 [id number] Antony Tao MD [address] [place] [address] 06/07/2022 09:34:25 06/07/2022 11:23:56 Body mass index 25-29 - overweight 237188506 Z68.27 27.1 Headache 81731141 R51.9 Degenerati on of lumbar intervertebral disc 86856979 M51.36 Chronic back pain 007825 002 G89.29 Anxiety 13793463 F41.9 [id number] Tj Muniz MD [address] [place] [address] 10/22/2022 14:44:48 10/22/2022 16:19:18 Acute laryngitis 6304076 J04.0 [id number] Antony Tao MD [address] [place] [address] 01/31/2023 09:23:49 01/31/2023 11:41:57 General examination of patient 982243583 Z00.00 Screening for malignant neoplasm of prostate 477455482 Z12.5 Endocrine/ metabolic screening 819703721 Z13.228 Exercises education, guidance, and counseling 135699240 Z71.82 The patient was advised to continue a healthy diet and exercise regularly. Dietary ma nagement surveillance 355638112 Z71.3 Hyperlipidemia 71732861 E78.5 Hypertensive disorder 38 801314 I10 Chronic back pain 049555 002 G89.29 [id number] Antony Tao MD [address] [place] [address] 02/20/2023 14:06:23 02/21/2023 14:32:49 Chronic hoarseness 7848608960 105 R49.0 [id number] Antony Tao MD [address] [place] [address] 05/29/2023 08:43:58 05/29/2023 09:19:01 General examination of patient 588121563 Z00.00 Hyperlipid emia screening 018062028 Z13.220 Screening for malignant neoplasm of prostate 960780347 Z12.5 Endocrine/ metabolic screening 006793589 Z13.228 Exercises education, guidance, and counseling 819265975 Z71.82 The patient was advised to continue a healthy diet and exercise regularly. Dietary ma nagement surveillance 579953477 Z71.3 Administra tion of diphtheria, pertussis, and tetanus vaccine 635659572 Z23 Body mass index 25-29 - overweight 517264434 Z68.28 28.1 Overweight 796348953 E66 .3 Tobacco user 164097178 Z 72.0 Hyperlipidemia 85806556 E78.5 Hypertensive disorder 38 172798 I10 Acid reflux 771005412 K2 1.9 Chronic back pain 000916 002 G89.29 [id number] Tj Muniz MD [address] [place] [address] 07/24/2023 14:56:29 07/24/2023 15:22:28 Nausea and vomiting 63466301 R11.2 [id number] Tj Muniz MD [address] [place] [address] 11/18/2023 10:56:34 11/18/2023 11:40:15 Upper respiratory infection 09115039 J06.9 [id number] Tj Muniz MD [address] [place] [address] 12/02/2023 09:46:30 12/02/2023 10:27:43 Hypertensive disorder 66827868 I10 Chronic, Stable at this time; no changes to current regimen. Follow up as below. Anxiety 48669593 F41.9 Chronic, Stable at this time; no changes to current regimen. Follow up as below. Acid reflux 925801449 K2 1.9 Chronic, Stable at this time; no changes to current regimen. Follow up as below. Essential hypertension 14902870 I10 Chronic, Stable at this time; no changes to current regimen. Follow up as below. Hyperlipidemia 52580018 E78.5 Chronic, Stable at this time; no changes to current regimen. Follow up as below. [id number] Tj Muniz MD [address] [place] [address] 01/22/2024 13:10:23 01/22/2024 13:44:19 Body mass index 25-29 - overweight 101455344 Z68.28 Overweight 655719354 E66 .3 Viral screening 71254099 4 Z11.59 Upper resp iratory infection 63701731 J06.9 Erectile dysfunction 860 334588 F52.21 [id number] Tj Muniz MD [address] [place] [address] 07/01/2024 10:49:38 07/01/2024 11:18:43 Essential hypertension 97572014 I10 Chronic, Stable at this time; no changes to current regimen. Follow up as below. Hypertensive disorder 38 226637 I10 Chronic, Stable at this time; no changes to current regimen. Follow up as below. Body mass index 30+ - obesity 914636938 Z68.30 Obesity 972559100 E66.9 [id number] Tj Muniz MD [address] [place] [address] 07/27/2024 13:10:36 07/27/2024 14:14:24 Body mass index 25-29 - overweight 384006928 Z68.27 Tinea corporis 38289490 B35.4 Plaque psoriasis 3830390 09 L40.0 [id number] Tj Muniz MD [address] [address] 08/31/2024 08:53:24 08/31/2024 09:20:47 Pain in bilateral legs 3155788325 2502124 M79.604 M79.605 Pt will schedule for injection Hypertensive disorder 38 103542 I10 Chronic, Stable at this time; no changes to current regimen. Follow up as below. Hyperlipidemia 99888255 E78.5 Chronic, Stable at this time; no changes to current regimen. Follow up as below. [id number] Tj Muniz MD [address] [place] [address] 09/02/2024 09:16:20 09/02/2024 09:31:41 Pain of right knee joint 4142567888 35765 M25.956 [id number] Tj Muniz MD [address] [address] 11/15/2024 14:58:23 11/15/2024 15:36:04 Upper respiratory infection 02763217 J06.9 Screening for malignant neoplasm of colon 827952537 Z12.11 [id number] Tj Muniz MD [address] [place] [address] 12/21/2024 16:29:55 12/21/2024 17:04:34 Pain of left knee joint 9382145016 42150 M25.562 Erectile dysfunction 860 607019 F52.21 refill requested [id number] Tj Muniz MD [address] [place] [address] 01/10/2025 15:54:43 01/10/2025 16:24:25 Spasm of back muscles 182201887 M62.830 refill requested Pain of le ft knee joint 8773086668 04169 M25.160 [id number] Tj Muniz MD [facility] [address] [place] [address] 01/18/2025 15:55:11 01/18/2025 16:25:01 Upper respiratory infection 26363843 J06.9 [id number] Tj Muniz MD [facility] [address] [place], [place] [address] [place] [address] 01/28/2025 12:51:44 01/28/2025 13:13:25 Pain of left knee joint 9309379671 53209 M25.610 [id number] Michael Carpenter APRN [facility] [address] [place], [place] [address] [place] [address] 03/14/2025 13:19:02 03/15/2025 07:42:30 Chest pain 39686828 R07.9 R06.00 02722390 PE noted with flushed face, mild labored [...] he was going to his daughter in [place] who will take him on to ER. He reports that he plans on going to [facility] where Dr. Cm practices, advised again the nearest ER is in [facility]. Patient is high risk for cardiovasc ular compromise . Patient agreeable to go to ER. F/U as needed. [id number] Sherrie Velazquez [facility] [address] [place] [address] 03/25/2025 10:11:57 03/25/2025 11:13:45 [address]18[address] of chest completed at [facility]. Results reviewed. Diffuse left lung pneumonia noted.Will plan for f/u chest CT in 2 weeks to evaluate for resolution . Seen in department 53191 1009 Z76.89 1472048173 Hyponatremia 34331450 E8 7.1 87021 Emergency room lab results reviewed. Sodium of 131 noted Hematocrit - PCV level - finding 752983182 D64.9 [id number] Emergency room lab results reviewed. Hematocrit of 39.9 noted Mediastina l lymphadenopathy 82386734 R59.[address] of chest completed at [facility]. Results reviewed. 1.2 cm prominent mediastina l lymph node noted.Will plan for f/u chest CT in 2 weeks to evaluate for resolution . [id number] Allison Collins [facility] [address] [place] [address] 05/16/2025 09:03:07 05/16/2025 09:38:35 Nicotine dependence 16421584 F17.200 59438290 Pneumonia 405502280 J18. 9 269302708 Overweight 922870705 E66 .3 Overweight in adulthood with body mass index of 25 or more but less than [address] of chest abnormal 653 2266524 4011052 R93.89 671521 Health Concerns Section Related Observation LastModified by Organization Detai ls LastModified Time None Recorded Concern Status LastModified by Organization Details LastModified Time None Recorded Advance Directives Directive N: Payers Insurance Date Sequence Insurance Name Policy Number Policy Collado Covered Member ID Collado Member ID Guarantor Name 05/13/2025 1 [facility] (MEDICAID REPLACEMENT - HMO) Antony Narayanan [id number] Antony Narayanan 08/13/2023 2 [place] [employer] - FFS/[facility] Antony Narayanan [id number] Antony Narayanan 05/13/2025 [place] [facility] Antony Narayanan [id number] Antony Patel Lady 08/03/2025 [employer] (MEDICARE REPLACEMENT/AD VANTAGE - PPO) Antony Moorejihan [id number] Antony Moorejihan 08/13/2023 1 [place] [id number] Antony Moorejihan [id number] Antony Mary Moorejihan 08/13/2023 2 [place] [id number] Antony Narayanan [id number] Antony Narayanan 08/13/2023 1 [place] [id number] Antony Moorejihan [id number] Antony Mary Lady 03/18/2022 1 UNSPECIFIED REMIT PAYOR Antony Patel Lady 08/13/2023 2 [employer] (PPO) Antony Mary Lady [id number] Antony Mary Lady Notes Date Note Type Note Provider Name [...] contacts. Tj Muniz MD [address], [place], [address], [facility] - [facility] 01/18/2025 17:47:00 5 text/html Pt [...] deficits. Tj Muniz MD [address], [place], [address], [facility] - [facility] 02/01/2025 14:06:06 5 text/html ROS [...] He denies any n/v, diarrhea. Michael Carpenter, [employer] [address], [place], [address], [employer] - [facility] 03/14/2025 16:21:11 5 text/html Emergency Department Follow-Up RecordReported by PatientEmergency Room Follow-Up RecordFor discharge information, patient reportsname of hospital/urgent care patient was seen: ([facility]patient presented to hospital/urgent care on or [...] presents for emergency room f/u. Sherrie Velazquez, [employer] [address], [place], [address], [place] - [facility] 03/25/2025 12:31:19 5 text/html ROS as noted in the HPI Presents for follow up regarding recent CT chestFeeling wellNo chest pain, shortness of breath, dizziness, lightheadedness, syncope, palpitations or edema.No fever, chills or cough.Follows with pain management for gabapentin and opiateCompliant with medicationsSmoking 0.5 pack per weekDenies alcohol and illicit drug usage Allison Collins, [employer] [address], [place], [address], [place] - [facility] 07/31/2025 15:19:12
--- NOTE | 2025-10-08 11:38 | [facility].EDCP ---
Discharge Plan Disposition Patient Disposition: Home, Self-Care Prescriptions Prescriptions: New isosorbide mononitrate 30 mg tablet extended release 24 hr 30 mg PO DAILY Qty: 30 0RF doxycycline hyclate 100 mg capsule 100 mg PO BID 7 Days Qty: 14 0RF amoxicillin-pot clavulanate 875-125 mg tablet 1 tab PO BID Qty: 14 0RF No Action amlodipine 10 mg tablet 10 mg PO DAILY gabapentin 300 mg capsule 300 mg PO TID omeprazole 40 mg capsule,delayed release(DR/EC) 40 mg PO DAILY lisinopril-hydrochlorothiazide 20-25 mg tablet 1 tab PO DAILY Qty: 90 3RF atorvastatin 40 mg tablet 40 mg PO DAILY Qty: 90 3RF hydrocodone-acetaminophen 5-325 mg tablet 1 tab PO TID Patient Comments: TAKE ONE TABLET BY MOUTH THREE TIMES DAILY bupropion HCl [Wellbutrin XL] 150 mg tablet extended release 24 hr 150 mg PO DAILY Qty: 90 3RF aspirin [Adult Aspirin Regimen] 81 mg tablet,delayed release (DR/EC) 81 mg PO DAILY Qty: 90 1RF buspirone 10 mg tablet 10 mg PO TID Qty: 90 2RF carvedilol 6.25 mg tablet 6.25 mg PO BID tizanidine 4 mg capsule 4 mg PO Q8HP PRN (Reason: muscle spasticity) prasugrel HCl 10 mg Tablet 10 mg PO DAILY 30 Days Qty: 30 0RF Referrals Follow up/Referrals: Heber Knott MD [Primary Care Provider, Family Practice] - See instructions Activity Restrictions/Add. 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 I encourage you to stop smoking. Per Dr. Cm, start taking Imdur 30 mg daily to help with your symptoms. Continue your aspirin and blood thinner as well. I do encourage you to follow-up with the cardiology team him on Friday as scheduled. You were also found to have a left-sided pneumonia. I am prescribing 2 antibiotics, Augmentin and doxycycline. Take these as prescribed. If you develop any new or worsening symptoms, such as chest pain, shortness of breath, fevers, or if you become concerned for you health for any reason, return to the ED. Clinical Impressions Clinical Impression: Chest pain, Pneumonia Print Language Print Language: Trinidadian Discharge ED Provider: Frandy Flor HPI General Chief Complaint: Chest Pain Stated Complaint: chest pain Time Seen by Provider: 10/08/25 11:32 History of Present Illness HPI narrative: Antony Narayanan is a 55-year-old male with past medical history of tobacco use, GERD, hypothyroidism, hyperlipidemia, coronary artery disease on aspirin, atorvastatin, prasugrel who underwent right coronary artery stent on 10/04/[address] Cm. Patient states he had been doing well since he been home, however 2 days ago, he sneezed and has had discomfort in his chest ever since. He does not describe it as pain but said it is uncomfortable. He says that he is weak today and 2 days ago, he woke up in a pool of sweat. He states that this does not feel similar to when he needed the stent. He took aspirin this morning and was started on his blood thinner 2 days ago. He denies any fevers or cough. Related Data Home Medications ?Medication ?Instructions ?Recorded ?Confirmed amlodipine 10 mg tablet 10 mg PO DAILY 05/28/22 10/04/25 gabapentin 300 mg capsule 300 mg PO TID 05/28/22 10/04/25 omeprazole 40 mg capsule,delayed 40 mg PO DAILY 05/28/22 10/04/25 release hydrocodone 5 mg-acetaminophen 325 1 tab PO TID 10/06/24 10/04/25 mg tablet carvedilol 6.25 mg tablet 6.25 mg PO BID 10/04/25 10/04/25 tizanidine 4 mg capsule 4 mg PO Q8HP PRN muscle spasticity 10/04/25 10/04/25 Previous Rx's ?Medication ?Instructions ?Recorded lisinopril 20 1 tab PO DAILY #90 tabs 06/13/22 mg-hydrochlorothiazide 25 mg tablet atorvastatin 40 mg tablet 40 mg PO DAILY #90 tabs 06/16/24 bupropion HCl 150 mg 24 hr tablet, 150 mg PO DAILY #90 tabs 06/16/25 extended release (Wellbutrin XL) aspirin 81 mg tablet,delayed 81 mg PO DAILY #90 tabs 07/26/25 release (Adult Aspirin Regimen) buspirone 10 mg tablet 10 mg PO TID #90 tabs 08/15/25 prasugrel HCl 10 mg tablet 10 mg PO DAILY 30 days #30 tabs 10/05/25 amoxicillin 875 mg-potassium 1 tab PO BID #14 tabs 10/08/25 clavulanate 125 mg tablet doxycycline hyclate 100 mg capsule 100 mg PO BID 7 days #14 caps 10/08/25 isosorbide mononitrate 30 mg 30 mg PO DAILY #30 tabs 10/08/25 tablet,extended release 24 hr Allergies Allergy/AdvReac Type Severity Reaction Status Date / Time Sulfa (Sulfonamide AdvReac Intermediate Rash Verified 10/04/25 13:22 Antibiotics) [facility] Disclaimer: The information contained in this section may have been updated after the patient was seen, as this information can be updated by other users. Medical History Encounter for screening for malignant neoplasm of respiratory organs Mediastinal lymphadenopathy Coronary artery disease Angina pectoris Abnormal findings on diagnostic imaging of heart and coronary circulation Lesion of vocal cord Hoarseness Anxiety History of gastroesophageal reflux (GERD) Hypertension Heart attack X2 COPD mixed type Pulmonary emphysema Dyspnea on exertion Smoking greater than 30 pack years Hoarseness of voice Emphysema lung Erectile dysfunction Chest pain Surgical History History of throat surgery H/O heart artery stent History of ear surgery History of hernia surgery Family History Other Asthma COPD (chronic obstructive pulmonary disease) Diabetes Heart attack Hypertension Lung cancer Social History Smoking Status: Current every day smoker alcohol intake: never substance use type: denies use current occupational status: disabled Travel in the last 8 weeks?: None Have you lived/traveled outside [place] in past 30 days?: No Contact w/someone who lives/traveled outside [place] past 30 days?: No Exposure to someone with infectious disease in past 14 days?: No Do you have a fever (greater than 100.4 F or 38 C)?: No Have you tested positive for COVID-19?: No Exposed to someone with COVID-19 in past 14 days?: No Do you have a sore throat?: No Do you have a cough?: No Do you have any weakness?: No Do you have any diarrhea?: No Are you experiencing any unusual bleeding?: No Do you have any muscle aches/pain?: No Do you have any abdominal pain?: No Are you experiencing loss of taste or smell?: No Other Medical History Have you received the Flu Vaccine for this season: No Have you received the Pneumonia Vaccine: No ROS Obtained: Yes Systems reviewed as appropriate & no additional complaints except as documented Physical Exam General General appearance: alert and in no apparent distress Comment: appears uncomfortable Head Head exam: atraumatic Eye Eye exam: Present normal appearance ENT ENT exam: Present normal external ear exam Neck Neck exam: Present full ROM Chest Chest inspection: Present symmetric chest wall rise Respiratory Respiratory exam: Present normal lung sounds bilaterally; Absent respiratory distress, wheezes or stridor Cardiovascular Cardiovascular exam: Present regular rate and normal rhythm Abdominal Exam Abdominal exam: Present soft; Absent tenderness or guarding exam: Present deferred Extremities Exam Extremities exam: Present normal inspection Back Exam Back exam: Present normal inspection Neurological Exam Neurological exam: Present alert and oriented X3 Psychiatric Psychiatric exam: Present normal affect Skin Skin exam: Present warm and dry HEART Score HEART Score HEART Score assessment performed?: Yes History (anamnesis): Moderately suspicious ECG: Normal Age: 45-65 years Risk factors: Atherosclerosis history Troponin: 1-3x normal limit HEART Score: 5 Critical Care Critical Care Time Critical Care Time: No Medical Decision Making Sid Inquiry Pt receiving controlled substance: No Vital Signs Vital Signs: 10/08/25 11:31 10/08/25 11:47 10/08/25 12:00 Temperature 98.2 F Temperature Source Oral Pulse Rate 80 87 Pulse Rate [Left Radial] 76 Respiratory Rate 19 15 10 L Blood Pressure 125/76 99/57 L Blood Pressure [Right Arm] 133/89 Blood Pressure Mean [Right Arm] 103 02 Sat by Pulse Oximetry 97 97 97 Oxygen Delivery Method Room Air Room Air Room Air 10/08/25 12:30 10/08/25 13:00 10/08/25 13:19 Temperature 98.0 F Temperature Source Pulse Rate 80 81 76 Pulse Rate [Left Radial] Respiratory Rate 17 12 16 Blood Pressure 105/74 L 118/80 118/80 Blood Pressure [Right Arm] Blood Pressure Mean [Right Arm] 02 Sat by Pulse Oximetry 97 99 Oxygen Delivery Method Room Air Room Air Lab Data Labs: Lab Results 10/08/25 11:28: WBC 6.7, RBC 5.01, Hgb 15.2, Hct 44.1, MCV 88.0, MCH 30.3, MCHC 34.5, RDW 12.9, Plt Count 376 D, MPV 8.9, Neut % (Auto) 69.1, Lymph % (Auto) 18.1, [place] % (Auto) 11.1 H, Eos % (Auto) 1.0, Baso % (Auto) 0.3, Neut # (Auto) 4.7, Lymph # (Auto) 1.2, [place] # (Auto) 0.8, Eos # (Auto) 0.1, Baso # (Auto) 0.0, Sodium 131 L, Potassium 3.9, Chloride 93 L, Carbon Dioxide 28, Anion Gap 13.9, BUN 8 L, Creatinine 0.80, Estimated Creat Clear 147, Estimated GFR 101, Est GFR ( Amer) 122, Glucose 120 H, Calcium 9.8, Total Bilirubin 0.7, AST 28, ALT 31, Alkaline Phosphatase 118, Troponin I 0.06 H, C-Reactive Protein 3.4, NT-Pro-B Natriuret Pep < 20.0, Total Protein 8.3 H, Albumin 5.1 H, Globulin 3.2, Albumin/Globulin Ratio 1.6 10/08/25 11:28 10/08/25 11:28 Response Orders (Tests/Meds): ED MEDICATIONS Discontinued Medications Generic Name Dose Route Start Last Admin Trade Name Freq PRN Reason Stop Dose Admin Aspirin 325 mg 10/08/25 11:36 10/08/25 11:48 Aspirin 325mg Tablet PO 10/08/25 11:37 325 mg ONCE ONE Administration Nitroglycerin 0.4 mg 10/08/25 11:36 10/08/25 11:48 Nitroglycerin 0.4mg Sl Tablet SL 10/08/25 11:37 0.4 mg ONCE ONE Administration ORDERS Category Date Time Status CXR --portable [XR chest portable] Stat Exams 10/08/25 11:36 Completed POCUS Point of Care (ER Only) Stat Exams 10/08/25 12:22 Completed BNP [NT Pro Brain Natriuretic Pep.] Stat Lab 10/08/25 11:28 Completed CBC w/Auto Diff [Complete Blood Count Auto Diff] Stat Lab 10/08/25 11:28 Completed CMP [Comprehensive Metabolic Panel] Stat Lab 11/22/25 11:28 Completed CRP [C-Reactive Protein] Stat Lab 10/08/25 11:28 Completed Troponin I Stat Lab 10/08/25 11:28 Completed ECG Data Tracing #1: Attestation: I reviewed this ECG and interpreted as documented below: ECG Narrative: Normal sinus rhythm. No ST elevation or depression. No inverted T waves. QTc of 397 MDM Narrative Medical Decision Narrative: Antony Narayanan is a 55-year-old male with past medical history of tobacco use, GERD, hypothyroidism, hyperlipidemia, coronary artery disease on aspirin, atorvastatin, prasugrel who underwent right coronary artery stent on 10/04/[address] Cm. Patient states he had been doing well since he been home, however 2 days ago, he sneezed and has had discomfort in his chest ever since. He does not describe it as pain but said it is uncomfortable. He says that he is weak today and 2 days ago, he woke up in a pool of sweat. He states that this does not feel similar to when he needed the stent. He took aspirin this morning and was started on his blood thinner 2 days ago. He denies any fevers or cough. On arrival, patient is normotensive, heart rate within normal limits, afebrile, oxygen saturation 97% on room air. Physical exam, stated above, revealed overall well-appearing male in no respiratory distress. He speaking full sentences. Cardiopulmonary exam revealed no wheezing, rales or rhonchi. No murmurs or rubs. Abdomen is soft, nontender nondistended. He has no significant peripheral edema. Differential diagnosis includes, but is not limited to: ACS, pericarditis, pneumonia, myocarditis, pleurisy, costochondritis, among others. The most morbid conditions were considered and workup was based on these. Patient was administered 325 mg of aspirin as well as 1 sublingual nitroglycerin tablet EKG interpreted by me personally showed no evidence of ischemia. See interpretation above. Chest x-ray was also interpreted by me personally. Patient does have some patchy airway opacities in the left upper lobe, likely representing pneumonia. See final radiology report for details. Patient's laboratory studies showed no leukocytosis, stable low sodium at 131, potassium normal at 3.9. No MILTON. Liver enzymes and bilirubin within normal limits. Initial troponin is elevated at 0.06. CRP normal at 3.4, NT proBNP normal at less than 20. On reassessment, patient states that his symptoms have completely resolved and he is no longer having any chest discomfort. At approximately 1300, I did discuss patient's case with Dr. Cm due to patient's elevated troponin and symptoms concerning for NSTEMI/angina. Dr. Cm stated that patient has significant endothelial damage, which was apparent on his most recent heart cath, likely secondary to his tobacco use. Dr. Cm stated that his symptoms are almost certainly secondary to this and that he will likely have chest pain as long as he continues to smoke. He recommended starting patient on Imdur 30 mg extended release daily, encouraging tobacco cessation, and given that he is pain-free his okay for discharge at this time. Patient has follow-up with cardiology team on Friday. I discussed this plan with patient and he continues to remain pain-free and is in agreement with this plan. I did have a significant discussion with the patient about tobacco cessation. Patient did state that he has not smoked over the last several days since his heart cath. I encouraged him to continue to avoid smoking if possible. I did give patient strict return precautions that if he had any worsening of his symptoms to return to the emergency department immediately. Encouraged him to attend his follow-up appointment on Friday with cardiology team as scheduled. All questions were answered. He demonstrated understanding and was in agreement this plan. He will be discharged from the emergency department on Augmentin and doxycycline for his pneumonia Augmentin and doxycycline for his pneumonia as well as Imdur.
[2025-10-08 11:44] LABS: Hematocrit 44.1 % (42.0-52.0); Hemoglobin 15.2 g/dL (14.1-18.0); Immature Granulocytes % 0.4 %; Mean Corpuscular HGB Conc 34.5 g/dL (31.8-35.4); Mean Corpuscular Hemoglobin 30.3 pg (27.0-31.2); Mean Corpuscular Volume 88.0 fl (80-94); Nucleated Red Blood Cells % 0 %; Platelet Count 376 K/mm3 (142-424); Red Blood Count 5.01 M/mm3 (4.60-6.20); Red Cell Distribution Width-SD 41.8 fL; White Blood Count 6.7 K/mm3 (4.8-10.8)
[2025-10-08 11:47] VITALS: BP 125/76; PULSE 80; RESP 15; O2SAT 97
[2025-10-08] MEDS: ASPIRIN 325MG TABLET 325 MG PO (11:48)
[2025-10-08] MEDS: NITROGLYCERIN 0.4MG SL TABLET 0.4 MG SL (11:48)
[2025-10-08 11:50] LABS: Alanine Aminotransferase 31 U/L (12-78); Albumin Level 5.1 g/dl (3.5-5.0); Albumin/Globulin Ratio 1.6 (1.1-1.8); Alkaline Phosphatase 118 U/L (38-126); Anion Gap 13.9 mEq/L (5-15); Aspartate Amino Transferase 28 U/L (17-59); Bilirubin,Total 0.7 mg/dl (0.2-1.3); Blood Urea Nitrogen 8 mg/dl (9-20); Calcium 9.8 mg/dl (8.4-10.2); Carbon Dioxide 28 mmol/L (22.0-30.0); Chloride 93 mmol/L (98-107); Creatinine Clearance Estimated 147 mL/min (50-200); Creatinine,Serum 0.80 mg/dl (0.66-1.25); Estimated Glomerular Filt Rate 101 ml/min (>60); GFR (African American) 122 ML/MIN (>60); Globulin 3.2 g/dL (1.3-3.2); Glucose 120 mg/dl (74-100); Potassium 3.9 mmoL/L (3.5-5.1); Sodium 131 mmol/L (136-145); Total Protein,Serum 8.3 g/dl (6.3-8.2)
[2025-10-08 11:55] LABS: C-Reactive Protein 3.4 mg/L (0-4)
[2025-10-08 12:00] VITALS: BP 99/57; PULSE 87; RESP 10; O2SAT 97
[2025-10-08 12:04] LABS: NT Pro Brain Natriuretic Pep. < 20.0 pg/mL (0-125); Troponin I 0.06 ng/ml (0.00-0.034)
[2025-10-08 12:30] VITALS: BP 105/74; PULSE 80; RESP 17; O2SAT 97
[2025-10-08 13:00] VITALS: BP 118/80; PULSE 81; RESP 12; O2SAT 99
[2025-10-08 13:19] VITALS: BP 118/80; PULSE 76; RESP 16; TEMP 36.7; O2SAT 98
== END 2025-10-08 13:21 | disposition home or self-care (01) ==
PROVIDERS: Emergency Provider Student in an Organized Health Care Education/Training Program; PCP Family Medicine
DX: R07.9 Chest pain, unspecified (principal); J18.9 Pneumonia, unspecified organism; F17.210 Nicotine dependence, cigarettes, uncomplicated; E87.1 Hypo-osmolality and hyponatremia; Z86.79 Personal history of other diseases of the circulatory system; Z95.5 Presence of coronary angioplasty implant and graft
CPT/HCPCS: 71045; 80053; 83880; 84484; 85025; 86140; 93005; 99285